=== PATIENT | male | born 1955 | race Caucasian/White ===

== ENCOUNTER 2016-08-15 06:17 | Inpatient (IN) ==
--- NOTE | 2016-08-14 20:29 | Discharge Summary ---
<Stefanie Avalos L - Last Filed: 08/14/16 20:25> Date of Encounter: 08/14/16 - Discharge Diagnosis (1) Pain from implanted hardware Priority: Primary Status: Acute Qualifiers: Encounter type: initial encounter Qualified Code(s): T85.848A - Pain due to other internal prosthetic devices, implants and grafts, initial encounter (2) HTN (hypertension) Priority: Secondary Status: Chronic Qualifiers: Hypertension type: essential hypertension Qualified Code(s): I10 - Essential (primary) hypertension (3) DMII (diabetes mellitus, type 2) Priority: Secondary Status: Chronic Qualifiers: Diabetes mellitus complication status: with unspecified complications 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 OARRS reviewed - Discharge Medications Home Medications: Dicyclomine [Bentyl] 10 mg PO QID 06/07/16 [History] Finasteride [Proscar] 5 mg PO DAILY 06/07/16 [History] Paroxetine HCl [Paroxetine Cr] 12.5 mg PO DAILY 06/07/16 [History] Phenytoin ER [Dilantin ER] 200 mg PO BID 06/07/16 [History] Pravastatin Sodium [Pravachol] 40 mg PO DAILY 06/07/16 [History] Terazosin [Hytrin] 10 mg PO HS 06/07/16 [History] OxyCODONE Immed Rel [Roxicodone 5 MG] 5 - 10 mg PO Q6HR PRN #40 tablet 08/14/16 [Rx] Acebutolol HCl 200 mg PO HS 08/15/16 [History] Amlodipine Besylate/Benazepril [Lotrel 10-40 mg Capsule] 1 each PO DAILY [History] Diazepam [Valium] 10 mg PO TID PRN 08/15/16 [History] Doxepin HCl 100 mg PO DAILY 08/15/16 [History] Hydrochlorothiazide 25 mg PO DAILY 08/15/16 [History] Allergies/Adverse Reactions: Allergies bupropion Allergy (Verified 08/15/16 06:58) Seizure ibuprofen [From Motrin] Adverse Reaction (Verified 08/15/16 06:58) Gastrointestinal Upset Primary care physician: Shun Quinones MD - Patient Status Disposition: Home, Self-Care Condition: Good - Discharge Instructions Follow Up With: Shun Quinones MD [Primary Care Provider] - - Hospital Course Hospital course: Mr. Mcgarry is a 61 year old male - Time Spent with Patient Total time spent providing and/or coordinating discharge services: <QuangAnshu Dumont - Last Filed: 08/16/16 06:36> Date of Encounter: 08/16/16 Time of Encounter: 06:36 - Discharge Diagnosis (1) Cervical spondylosis Priority: Secondary Status: Chronic Qualifiers: Spinal osteoarthritis complication: without myelopathy or radiculopathy Qualified Code(s): M47.812 - Spondylosis without myelopathy or radiculopathy, cervical region (2) Pain from implanted hardware Priority: Primary Status: Acute Qualifiers: Encounter type: initial encounter Qualified Code(s): T85.848A - Pain due to other internal prosthetic devices, implants and grafts, initial encounter (3) HTN (hypertension) Priority: Secondary Status: Chronic Qualifiers: Hypertension type: essential hypertension Qualified Code(s): I10 - Essential (primary) hypertension (4) DMII (diabetes mellitus, type 2) Priority: Secondary Status: Chronic Qualifiers: Diabetes mellitus complication status: with unspecified complications Diabetes mellitus detention insulin use: 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 Mcgarry is a 61 year old male The patient had an uneventful postoperative course. They received antibiotics and physical therapy and were discharged in stable condition. There will follow -up in the office in 2 weeks. - Time Spent with Patient Total time spent providing and/or coordinating discharge services:
[2016-08-15] MEDS ORDERED: Lidocaine -MPF 1% 2 ML VIAL ONE (06:51)
--- NOTE | 2016-08-15 06:58 | History & Physical Report ---
Date of Encounter: 08/15/16 Time of Encounter: 06:57 24 Hour HP Update - Instructions Instructions: If the History and Physical is less than 30 days old and was completed prior to A.M. admission and or procedure and has NOT been updated on calendar day of procedure please complete this update prior to performing procedure. - Update Patient reports changes in Medical Condition: No Changes in Medication: No Preop tests/diagnostics Reviewed: Yes Surgery Remains Indicated: Yes Consent for Planned Operative Procedure(s) Verified: Yes - Pre-Operative Checklist Preoperative Checklist Indicated: No Prophylactic Antibiotic Ordered: Yes Is VTE Prophylaxis Indicated?: Yes
[2016-08-15] MEDS ORDERED: Lidocaine -MPF 1% 2 ML VIAL ID ONE (07:04)
[2016-08-15] MEDS ORDERED: CeFAZolin Pre 2,000 MG/100 ML 2,000 MG/100 ML BAG IVPB ONE (07:04)
[2016-08-15] MEDS ORDERED: Tetracaine/PF 20 MG/2 ML AMPUL SPINA ONE (07:08)
[2016-08-15] MEDS ORDERED: Dexamethasone 4 MG/ML VIAL ONE ×2 (07:14→08:00)
[2016-08-15] MEDS ORDERED: *HR* Propofol 200 MG/20 ML VIAL IVP ONE (07:14)
[2016-08-15] MEDS ORDERED: *HR* Midazolam HCl 2 MG/2 ML VIAL ONE (07:14)
[2016-08-15] MEDS ORDERED: Lidocaine -MPF 2% 2 ML VIAL ONE (07:14)
[2016-08-15] MEDS ORDERED: Ondansetron 4 MG/2 ML VIAL ONE (07:14)
[2016-08-15] MEDS ORDERED: Ringers Solution, Lactated 1,000 ML IVC SCH ×2 (07:15→10:04)
[2016-08-15] MEDS ORDERED: Bupivacaine/Clonidine Syringe 1 EACH SYRINGE ONE (07:21)
--- NOTE | 2016-08-15 07:26 | Anesthesia Evaluation PreOp ---
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 History: Seizures (last seizure around one year) Other Medical History: Denies Any Significant HX Anesthesia History: No Prior Anesthetic Complications, Problems (nerve block didn't work last shoulder surgeries) Alcohol Use: none Drug use: none Medications and Allergies Dicyclomine [Bentyl] 10 mg PO QID 06/07/16 [History] Finasteride [Proscar] 5 mg PO DAILY 06/07/16 [History] Paroxetine HCl [Paroxetine Cr] 12.5 mg PO DAILY 06/07/16 [History] Phenytoin ER [Dilantin ER] 200 mg PO BID 06/07/16 [History] Pravastatin Sodium [Pravachol] 40 mg PO DAILY 06/07/16 [History] Terazosin [Hytrin] 10 mg PO HS 06/07/16 [History] OxyCODONE Immed Rel [Roxicodone 5 MG] 5 - 10 mg PO Q6HR PRN #40 tablet 08/14/16 [Rx] Acebutolol HCl 200 mg PO HS 08/15/16 [History] Amlodipine Besylate/Benazepril [Lotrel 10-40 mg Capsule] 1 each PO DAILY [History] Diazepam [Valium] 10 mg PO TID PRN 08/15/16 [History] Doxepin HCl 100 mg PO DAILY 08/15/16 [History] Hydrochlorothiazide 25 mg PO DAILY 08/15/16 [History] Allergies bupropion Allergy (Verified 08/15/16 06:58) Seizure ibuprofen [From Motrin] Adverse Reaction (Verified 08/15/16 06:58) Gastrointestinal Upset - Meds/Allergy Pre-op Review Medications Reviewed: Yes Allergies Reviewed: Yes Beta Blockers on Current Med List: Yes If Beta Blockers taken, Date/Time (Last Dose taken): acebutalol 08-14-16 at 19:00 Anesthesia Results - Labs Laboratory Tests 08/08/16 08/08/16 08/08/16 08:35 08:35 08:35 WBC 5.8 Hgb 15.0 Hct 43.0 Plt Count 244 PT 11.0 INR 1.0 APTT 27.8 Sodium 139 Potassium 3.5 Chloride 101 Carbon Dioxide 25 BUN 17 Creatinine 1.15 Est GFR ( Amer) > 60 Est GFR (Non-Af Amer) > 60 BUN/Creatinine Ratio 15 Est Mean Plasma Glucose Hemoglobin A1c 08/08/16 08:35 WBC Hgb Hct Plt Count PT INR APTT Sodium Potassium Chloride Carbon Dioxide BUN Creatinine Est GFR ( Amer) Est GFR (Non-Af Amer) BUN/Creatinine Ratio Est Mean Plasma Glucose 103 Hemoglobin A1c 5.2 - Imaging EKG: report reviewed, image reviewed (SR; incomplete RBBB) Anesthesia Exam Last Vital Signs Temp 98.2 F 08/15/16 06:42 Pulse 18 08/15/16 06:42 Resp 18 08/15/16 06:42 BP 111/49 08/15/16 06:42 Pulse Ox 93 08/15/16 06:42 Weight: 85 kg NPO (# of Hours): >> 8 hrs - HEENT Pupil (Motor): Pupils equal, EOMI Mallampati: III Teeth: Poor dentition Oral Opening: Less than or equal to 3 - PROJECT DEVELOPMENT COORDINATOR LOC: Oriented PROJECT DEVELOPMENT COORDINATOR Motor: Normal RUE, Normal LUE, Normal RLE, Normal LLE, Normal Face - Cardiac Rhythm: Regular Murmur: None - Pulmonary Breath Sounds: bilateral Clear Respiratory Effort: Symmetrical Anesthesia Assess/Plan ASA Score: 2 Modified [place] Scale for Level of Consciousness: Cooperative, oriented, and tranquil Anesthetic Plan: General, Regional Monitoring Plan: Standard Monitors Recovery Plan: PACU
[2016-08-15] MEDS ORDERED: EPHEDrine 50 MG/ML VIAL ONE (08:00)
[2016-08-15] MEDS ORDERED: *HR* Promethazine 25 MG/ML VIAL IVP PRN (08:06)
[2016-08-15] MEDS ORDERED: Ondansetron 4 MG/2 ML VIAL IVP ONE (08:06)
[2016-08-15] MEDS ORDERED: *HR* Labetalol 100 MG/20 ML MDV IVP PRN (08:06)
--- NOTE | 2016-08-15 08:11 | Anesthesia Procedures ---
Date of Encounter: 08/15/16 Time of Encounter: 07:36 Procedures: Anesthesia - Nerve Block Procedure Date: 08/15/16 Time: 07:36 Surgical Procedure: right revision total shoulder Correct side: Right Blood Thinner: No Monitor Applied: Pulse Oximetry Sedation: Versed (mg): 4 Indication: Post Op Analgesia Block Type: Supraclavicular, Other (T2 and SCP) Catheter placed: No Sterile Technique: Yes Ultrasound used: Yes Anatomy identified: Yes Visual spread of Local: Yes Neuro Stimulation: No Blood on Needle Aspiration: No Smooth Injection of Local: Yes Pain with Injection of Local: No Prep: Chlorhexadine Needle: 22 x 50 mm Stimuplex Local: 0.25% Bupivicaine w/Clonidine 20 mcg/cc (10ml, 5 for SCP and 5 for T2), Tetracaine (2ml 1%), Other (27ml 0.5% bup plain, 2mg decadron, 2ml tetracaine) Volume (cc): 40 Number of Attempts: 1 Complications: None/effective block Vitals: vss though out, block per request of surgeon
[2016-08-15] MEDS ORDERED: *HR* Phenylephrine 10 MG/ML VIAL ONE (08:12)
--- NOTE | 2016-08-15 08:50 | Orthopedic Operative Note ---
Date of procedure: 08/15/16 Pre-op diagnosis: Painful right total shoulder Post-op diagnosis: same Procedure: Procedure: Right Revision Total Shoulder replacement reverse Estimated blood loss: 100 cc Hardware: Arthrex: Large glenoid baseplate, 2 4.5 screws, one 6.5 screw 42+4 Glenosphere, 10 stem +6 Ronda Procedural Notes: Loose humeral component, loose glenoid component. Operative procedure: The patient was brought to the operating room and placed on the operating room table. The patient was placed in the modified beachchair position. All pressure points were padded appropriately. And the head was stabilized in the neutral position. The operative extremity was prepped and draped in the sterile surgical fashion. The patient received IV antibiotics prior to skin incision. A standard deltopectoral approach was made to the operative shoulder. Incision was made to the skin and subcutaneous tissue,hemo stasis was obtained with Bovie cautery. Using careful blunt dissection the cephalic vein was identified and mobilized medially. The deltopectoral interval was developed and the clavipectoral fascia was incised. An extensive debridement was performed, and the shoulder was dislocated. Using an osteotome to clear out the soft tissue, the humeral component was gently removed. It was grossly loose. Anterior and posterior Bankart retractors were used to expose the glenoid, the glenoid component was removed without incident. This was also loose. It was a keeled glenoid component. The glenoid guide was seated the centering hole was made the glenoid was reamed with the appropriate reamer. The large glenoid baseplate was seated and secured and locked in place with the locking screws. The baseplate was irrigated and dried 42+4 glenosphere was seated and secured. Attention was then turned to the humeral side. The humerus was reamed and broached up to its appropriate size in 20 degrees of retroversion. Trial reduction found the shoulder to be relocatable. Trial components were removed, real implants were seated. Trial reduction found the shoulder to be stable with the appropriate last 6 implants. The trial implants were removed the real 6implants were seated and secured in the shoulder was reduced. The patient had excellent motion and excellent stability no shuck. The deep tissue was irrigated with pulse irrigation deltopectoral interval was closed with #2 PDS suture. Superficially the subcutaneous tissue was closed with 0 PDS suture, the skin was closed with Dermabond. The patient placed sterile dressing, postoperative brace extubated and transferred to the recovery room in stable condition. Anesthesia: [place] Surgeon: Anshu [address] Maintenance Crew Worker: Stefanie Avalos Condition: stable Disposition: PACU
[2016-08-15] MEDS: *HR* HYDROmorphone (PF) 1 MG/ML SYRINGE IVP PRN ×6 (09:11→19:46)
[2016-08-15 09:24] LABS: Hematocrit 36.7 % (37.5-50.1)
[2016-08-15 09:25] LABS: Hemoglobin 12.6 g/dL (12.9-16.9)
--- NOTE | 2016-08-15 09:46 | Anesthesia Evaluation Post Op ---
Date of Encounter: 08/15/16 Time of Encounter: 09:45 - Vital Signs Vital Signs: Last Vital Signs Temp 97.8 F 08/15/16 09:34 Pulse 69 08/15/16 09:34 Resp 16 08/15/16 09:34 BP 104/69 08/15/16 09:34 Pulse Ox 92 08/15/16 09:34 - Lungs Lungs: Clear Ascult./Percussion - Airway Airway: Non-obstructed - Cardiovascular Regular Rate - Mental Status Mental Status: Alert & Oriented, Answers Appropriately - Pain Pain Scale: 2 - Nausea Vomiting Nausea Vomiting: Not Present - Hydration Hydration: Ice chips - Discharge PostOp Status: Transfer Patient to floor
[2016-08-15] MEDS ORDERED: Sennosides 8.6 MG TABLET PO PRN (10:04)
[2016-08-15] MEDS ORDERED: ceFAZolin 2,000 MG in D5% in Water 100 ML IVPB SCH (10:04)
[2016-08-15] MEDS ORDERED: Naloxone 0.4 MG/ML INJ IVP PRN (10:04)
[2016-08-15] MEDS ORDERED: *HR* OxyCODONE Immed Rel 5 MG TABLET PO PRN (10:04)
[2016-08-15] MEDS ORDERED: *HR* Dextrose 50 % in Water (Syg) 50 ML SYRINGE IVP PRN (10:04)
[2016-08-15] MEDS ORDERED: Ondansetron 4 MG/2 ML VIAL IVP PRN (10:04)
[2016-08-15] MEDS ORDERED: Temazepam 15 MG CAPSULE PO PRN (10:04)
[2016-08-15] MEDS ORDERED: D5% in Water 1,000 ML IVC PRN (10:04)
[2016-08-15] MEDS ORDERED: MOM Conc 10 ML UD.LIQ PO PRN (10:04)
[2016-08-15] MEDS ORDERED: Dextrose Gel 15 GM PO PRN ×2 (10:04)
[2016-08-15] MEDS ORDERED: Acetaminophen 325 MG TABLET PO PRN (10:04)
[2016-08-15] MEDS: diazePAM 10 MG TABLET PO PRN (10:42)
[2016-08-15] MEDS: hydroCHLOROthiazide 25 MG TABLET PO SCH (13:29)
[2016-08-15] MEDS: *HR* OxyCODONE Immed Rel 5 MG TABLET PO PRN ×2 (13:42→17:44)
[2016-08-15] MEDS: AMLODIPINE BESYLATE PO SCH (13:45)
[2016-08-15] MEDS: BENAZEPRIL PO SCH (13:45)
[2016-08-15] MEDS: Finasteride 5 MG TABLET PO SCH (17:40)
[2016-08-15] MEDS: Insulin LISPRO 300 UNITS/3 ML VIAL SQ SCH ×2 (17:40→17:58)
[2016-08-15] MEDS: *HR* Enoxaparin 30 MG/0.3 ML SYRINGE SQ SCH (17:40)
[2016-08-15] MEDS: ceFAZolin 2,000 MG in D5% in Water 100 ML IVPB SCH (17:41)
[2016-08-15] MEDS ORDERED: *HR* Enoxaparin 30 MG/0.3 ML SYRINGE SQ SCH (18:00)
[2016-08-15] MEDS ORDERED: Insulin LISPRO 300 UNITS/3 ML VIAL SQ SCH (21:00)
[2016-08-16] MEDS: *HR* HYDROmorphone (PF) 1 MG/ML SYRINGE IVP PRN (00:08)
[2016-08-16] MEDS: ceFAZolin 2,000 MG in D5% in Water 100 ML IVPB SCH (00:08)
[2016-08-16] MEDS: *HR* OxyCODONE Immed Rel 5 MG TABLET PO PRN ×2 (03:23→07:33)
[2016-08-16] MEDS: diazePAM 10 MG TABLET PO PRN (04:30)
[2016-08-16 05:09] LABS: Hematocrit 35.5 % (37.5-50.1)
[2016-08-16] MEDS: *HR* Enoxaparin 30 MG/0.3 ML SYRINGE SQ SCH (06:08)
--- NOTE | 2016-08-16 06:37 | Orthopedics Progress Note ---
Date of Encounter: 08/16/16 Time of Encounter: 06:37 - Assessment and Plan (1) Cervical spondylosis Current Visit: No Status: Chronic Qualifiers: Spinal osteoarthritis complication: without myelopathy or radiculopathy Qualified Code(s): M47.812 - Spondylosis without myelopathy or radiculopathy, cervical region (2) Pain from implanted hardware Current Visit: Yes Status: Acute Qualifiers: Encounter type: initial encounter Qualified Code(s): T85.848A - Pain due to other internal prosthetic devices, implants and grafts, initial encounter (3) HTN (hypertension) Current Visit: Yes Status: Chronic Qualifiers: Hypertension type: essential hypertension Qualified Code(s): I10 - Essential (primary) hypertension (4) DMII (diabetes mellitus, type 2) Current Visit: Yes Status: Chronic Qualifiers: Diabetes mellitus complication status: with unspecified complications 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 Afebrile vital signs stable. Operative extremity: Neurovascularly intact Dressing clean dry and intact Calves nontender Assessment and plan: Continue with postoperative care Hematocrit 35 discharged today Objective Vital signs: Vital Signs Temp Pulse Resp BP Pulse Ox 08/16/16 03:34 96 08/16/16 03:25 98.4 F 87 21 132/81 96 08/16/16 00:08 98.2 F 85 19 100/54 94 08/15/16 20:38 96 109/58 08/15/16 20:05 98.5 F 94 22 115/76 94 08/15/16 19:42 94 115/76 08/15/16 15:48 98.1 F 88 18 99/76 92 08/15/16 13:22 98.2 F 67 18 94/60 90 08/15/16 12:20 97.7 F 70 18 115/67 93 08/15/16 11:55 97.4 F L 71 18 103/63 94 08/15/16 10:15 92 08/15/16 10:03 97.7 F 66 18 106/44 92 08/15/16 09:44 97.8 F 70 16 109/68 92 08/15/16 09:34 97.8 F 69 16 104/69 92 08/15/16 09:24 70 16 100/46 93 08/15/16 09:14 71 16 103/63 94 08/15/16 09:04 97.8 F 68 16 95/47 96 08/15/16 07:42 66 17 94/76 94 08/15/16 07:38 63 16 103/71 93 08/15/16 07:33 64 16 119/107 93 08/15/16 06:42 98.2 F 18 18 111/49 93 Intake and Output 08/15/16 08/15/16 08/16/16 15:59 23:59 07:59 Intake Total 400 / 400 220 / 220 Output Total 900 / 900 475 / 475 800 / 800 Balance -500 / -500 -255 / -255 -800 / -800 Intake: IV Fluids 100 / 100 Ancef 2,000 MG In 100 / 100 Dextrose 5% 100 ML @ 200 mls/hr IVPB Q8H EMELINA Rx#: [id number] Oral 400 / 400 120 / 120 Output: Urine 800 / 800 475 / 475 800 / 800 Estimated Blood Loss 100 / 100 Other: Meal Lunch Dinner Percent of Meal Consumed 80% 75% # Voids 1 # Bowel Movement Diapers 1 Blood Glucose* 174 85 121 - Labs CBC & BMP: 08/16/16 04:32 Labs: Abnormal lab results Hgb 12.0 g/dL (12.9-16.9) L 08/16/16 04:32 Hct 35.5 % (37.5-50.1) L 08/16/16 04:32 - VTE Documentation of Mechanical Device: Venous foot pump, device Consult Discharge Plan - Plan Referrals: Shun Quinones MD [Primary Care Provider] -
[2016-08-16 07:08] VITALS: BP 107/53
[2016-08-16] MEDS: Finasteride 5 MG TABLET PO SCH (07:25)
[2016-08-16] MEDS: Insulin LISPRO 300 UNITS/3 ML VIAL SQ SCH (07:25)
[2016-08-16] MEDS: AMLODIPINE BESYLATE PO SCH (07:26)
[2016-08-16] MEDS: BENAZEPRIL PO SCH (07:26)
[2016-08-16] MEDS: hydroCHLOROthiazide 25 MG TABLET PO SCH (07:26)
== END 2016-08-16 10:44 | disposition home or self-care (01) | DRG 483 ==
LOC: SAMDAY 06:17 → 3NENU 10:04
PROVIDERS: ADMIT Orthopaedic Surgery; ATTEND Orthopaedic Surgery

== ENCOUNTER 2017-08-31 16:26 | Inpatient (IN) ==
[2017-08-31 16:50] LABS: Basophils % 0.3 %; Eosinophils # 0.1 K/mcL (0.0-0.6); Eosinophils % 0.7 %; Hematocrit 35.3 % (37.5-50.1); Hemoglobin 12.3 g/dL (12.9-16.9); Immature Granulocytes % 0.3 % (0-4); Lymphocytes # 1.3 K/mcL (0.6-4.6); Lymphocytes % 13.4 %; Mean Corpuscular HGB Conc 34.8 g/dL (31.6-35.5); Mean Corpuscular Volume 97.5 fL (83.0-100.0); Mean Platelet Volume 9.3 fL (9.4-12.4); Monocytes # 0.9 K/mcL (0.0-1.3); Monocytes % 9.3 %; Neutrophils # 7.6 K/mcL (1.6-8.9); Platelet Count 209 K/mcL (140-400); Red Blood Count 3.62 M/mcL (4.19-5.50); Red Cell Distribution Width 12.3 % (11.5-14.5)
--- NOTE | 2017-08-31 16:55 | Emergency Department Note ---
Disposition Clinical Impression: Hypoxia Hypotension Qualifiers: Hypotension type: unspecified hypotension type Qualified Code(s): I95.9 - Hypotension, unspecified Pneumonia Qualifiers: Pneumonia type: due to unspecified organism Laterality: unspecified laterality Lung location: unspecified part of lung Qualified Code(s): J18.9 - Pneumonia, unspecified organism Disposition: Admitted As Inpatient Condition: Fair Time of Disposition: 19:48 General Adult HPI - General Chief complaint: ED Shortness of Breath/Dyspnea Stated complaint: "low O2,hypotension sent by aniceto" Time Seen by Provider: 08/31/17 16:35 Source: patient Limitations: no limitations Nursing Notes Reviewed: Yes Vital Signs Reviewed: Yes - History of Present Illness HPI Narrative: Patient is a 62-year-old male that presents the emergency department for low oxygen saturation and hypotension. Patient was recommended to come to the emergency department by Dr. Antunez the spine surgeon. Patient reports that there home health nurse came to evaluate the patient and reported oxygen saturation in the 80s and that they were hypotensive. They then called Dr. Antunez's office who recommended that the patient come to the emergency department to be evaluated. The patient states that he has been coughing up greenish yellow mucus. The patient stated multiple times that he did not feel that he needed to come to the emergency department however it was recommended by Dr. Antunez and the home health nurse. Patient denies any chest pain or difficulty breathing at this time. Patient denies any fever, chills, nausea or any vomiting. Patient reports that he had recent discectomy approximately 2-[address] Antunez. Pain Scale: 9 - Related Data Home Medications Medication Instructions Recorded Confirmed Dicyclomine [Bentyl] 20 mg PO TID 06/07/16 08/31/17 Phenytoin ER [Dilantin ER] 200 mg PO BID 06/07/16 08/31/17 Terazosin [Hytrin] 10 mg PO HS 06/07/16 08/31/17 Acebutolol HCl 200 mg PO HS 08/15/16 08/31/17 Amlodipine Besylate/Benazepril 1 tab PO DAILY 08/15/16 08/31/17 [Lotrel 10-40 mg Capsule] Doxepin HCl 200 mg PO HS 08/15/16 08/31/17 diazePAM [Valium] 10 mg PO TID PRN 08/15/16 08/31/17 hydroCHLOROthiazide 25 mg PO DAILY 08/15/16 08/31/17 [Hydrochlorothiazide] Escitalopram [Lexapro] 20 mg PO DAILY 08/29/17 08/31/17 hydrOXYzine HCl [Hydroxyzine HCl] 25 - 50 mg PO HS PRN 08/29/17 08/31/17 Previous Rx's Medication Instructions Recorded OxyCODONE Immed Rel [Roxicodone 5 5 mg PO Q6H PRN 7 Days #28 tablet 08/30/17 MG] Allergies Allergy/AdvReac Type Severity Reaction Status Date / Time bupropion Allergy Seizure Verified 08/29/17 08:52 NSAIDS (Non-Steroidal Allergy Gastrointestinal Verified 08/29/17 08:52 Anti-Inflamma Upset ibuprofen [From Motrin] AdvReac Gastrointestinal Verified 08/29/17 08:52 Upset All systems ED: reviewed and negative except as stated. Constitutional: Denies: fever, chills Cardiovascular: Denies: chest pain Respiratory: Reports: cough, sputum production. Denies: dyspnea Gastrointestinal: Denies: abdominal pain, nausea, vomiting Genitourinary: Denies: urgency, dysuria Past Medical History - Past Medical History Medical history: Reports: arthritis, diabetes, hypertension, seizures Surgical history: Reports: orthopedic, other Psychiatric history: Reports: depression - Social History Smoking Status: Never smoker Smokeless Tobacco Status: No Alcohol use: Reports: none Drug use: Reports: none Physical Exam - General Limitations: no limitations General appearance: alert, in no apparent distress - Head Head exam: atraumatic, normocephalic - Eye Eye exam: Present: normal appearance, EOMI - Neck Neck exam: Present: normal inspection, full ROM, trachea midline - Respiratory Respiratory exam: Present: other (Patient has coarse crackly breath sounds bilaterally.) - Cardiovascular Cardiovascular exam: Present: regular rate, normal rhythm, normal heart sounds, +S1, +S2 - Abdominal Exam Abdominal exam: Present: soft, Non-Tender, normal bowel sounds - Neurological Exam Neurological exam: Present: alert, oriented X3 - Psychiatric Psychiatric exam: Present: normal affect, normal mood - Skin Skin exam: Present: warm, dry, intact Course - Reevaluation(s) Reevaluation #1: Patient had an elevated d-dimer of 1592 which may partially be secondary to the patient recently having cervical neck surgery with Dr. Antunez however due to the patient presenting with hypoxia and hypotension pulmonary embolus cannot be excluded so we will obtain a CTA of the chest to rule out possible pulmonary embolus. Time: 17:18 Reevaluation #2: Upon checking on the patient the family member had removed the patient's cervical collar and told the nurse and myself that he is allowed to have his cervical collar removed when he is in bed. The cervical collar was not removed by myself or medical staff here in the emergency department. The patient stated that he wanted the cervical collar placed back on and this will be done. The patient's blood pressure upon reevaluation was 100/57. Time: 19:50 Vital Signs Temperature 98.6 F 08/31/17 16:31 Pulse Rate 86 08/31/17 16:31 Respiratory Rate 26 08/31/17 16:31 Blood Pressure 101/65 08/31/17 16:31 O2 Sat by Pulse Oximetry 87 08/31/17 16:31 Temperature 98.6 F 08/31/17 16:31 Pulse Rate 89 08/31/17 19:48 Respiratory Rate 18 08/31/17 19:48 Blood Pressure 100/57 08/31/17 19:48 O2 Sat by Pulse Oximetry 91 08/31/17 19:48 Oxygen Delivery Oxygen Delivery Nasal Cannula Medical Decision Making - [facility] Narrative Medical decision making narrative: Due the patient presented with reported decreased oxygen saturations and concern for possible pneumonia versus other pulmonary pathology we will obtain a CBC, BMP, troponin chest x-ray and EKG. We will also obtain a d-dimer to evaluate for possible clot burden due to the patient having recent surgery. - Lab Data Lab results reviewed: Yes I reviewed the patient's lab results. Result diagrams: 08/31/17 16:35 08/31/17 16:35 Lab Results 08/31/17 08/31/17 08/31/17 Range/Units 16:35 16:35 16:35 WBC 10.0 (4.3-11.1) K/mcL RBC 3.62 L (4.19-5.50) M/mcL Hgb 12.3 L (12.9-16.9) g/dL Hct 35.3 L (37.5-50.1) % MCV 97.5 (83.0-100.0) fL MCH 34.0 H (28.0-33.3) pg MCHC 34.8 (31.6-35.5) g/dL RDW 12.3 (11.5-14.5) % Plt Count 209 (140-400) K/mcL MPV 9.3 L (9.4-12.4) fL Immature Gran % 0.3 (0-4) % Seg Neutrophils % 76.0 % Lymphocytes % 13.4 % Monocytes % 9.3 % Eosinophils % 0.7 % Basophils % 0.3 % Neutrophils # 7.6 (1.6-8.9) K/mcL Lymphocytes # 1.3 (0.6-4.6) K/mcL Monocytes # 0.9 (0.0-1.3) K/mcL Eosinophils # 0.1 (0.0-0.6) K/mcL Basophils # 0.0 (0.0-0.2) K/mcL D-Dimer 1592 H (0-500) ng/mLFEU Sodium 133 L (136-145) mEq/L Potassium 3.5 (3.5-5.1) mEq/L Chloride 94 L (98-107) mEq/L Carbon Dioxide 30 H (23-29) mEq/L BUN 32 H (8-23) mg/dL Creatinine 2.16 H (0.70-1.30) mg/dL Est GFR ( Amer) 38 L (> 60) Est GFR (Non-Af Amer) 31 L (> 60) BUN/Creatinine Ratio 15 (6-26) Glucose 121 H (70-105) mg/dL Calculated Osmolality 284 (280-300) Lactic Acid (0.5-2.2) mmol/L Calcium 8.6 (8.6-10.3) mg/dL Troponin I < 0.03 (< 0.04) ng/mL B-Natriuretic Peptide (Less than 100) pg/mL 08/31/17 08/31/17 Range/Units 16:35 16:35 WBC (4.3-11.1) K/mcL RBC (4.19-5.50) M/mcL Hgb (12.9-16.9) g/dL Hct (37.5-50.1) % MCV (83.0-100.0) fL MCH (28.0-33.3) pg MCHC (31.6-35.5) g/dL RDW (11.5-14.5) % Plt Count (140-400) K/mcL MPV (9.4-12.4) fL Immature Gran % (0-4) % Seg Neutrophils % % Lymphocytes % % Monocytes % % Eosinophils % % Basophils % % Neutrophils # (1.6-8.9) K/mcL Lymphocytes # (0.6-4.6) K/mcL Monocytes # (0.0-1.3) K/mcL Eosinophils # (0.0-0.6) K/mcL Basophils # (0.0-0.2) K/mcL D-Dimer (0-500) ng/mLFEU Sodium (136-145) mEq/L Potassium (3.5-5.1) mEq/L Chloride (98-107) mEq/L Carbon Dioxide (23-29) mEq/L BUN (8-23) mg/dL Creatinine (0.70-1.30) mg/dL Est GFR ( Amer) (> 60) Est GFR (Non-Af Amer) (> 60) BUN/Creatinine Ratio (6-26) Glucose (70-105) mg/dL Calculated Osmolality (280-300) Lactic Acid 1.4 (0.5-2.2) mmol/L Calcium (8.6-10.3) mg/dL Troponin I (< 0.04) ng/mL B-Natriuretic Peptide 170 H (Less than 100) pg/mL - Radiology Data Radiology results reviewed: Yes I reviewed the patient's radiology results. Chest X-Ray 08/31/17 16:38 IMPRESSION: Shallow inspiration with mild bibasilar atelectasis. D/ / Brennan Ferrera MD / Brennan Ferrera MD Interpreting Provider: Brennan Ferrera MD Chest CTA 08/31/17 17:19 IMPRESSION: No evidence for pulmonary embolism. Ill-defined airspace opacities primarily within the lower lobes bilaterally. Subtle ground-glass opacities within the right upper lobe and lingula. Findings are most compatible with multifocal infectious or inflammatory process. Follow-up to resolution recommended. D/ / Jori Martinez MD / Jori Martinez MD Interpreting Provider: Jori Martinez MD - EKG Data EKG #1 EKG attestation: Yes I reviewed and interpreted this EKG. EKG results narrative: EKG showed a sinus rhythm at rate of 81 bpm, ID interval of 160, QRS duration of 99, QTC of 409 with a normal axis. There is evidence of an incomplete right bundle-branch block. This is compared to previous EKG on 08/16/17 which showed a sinus rhythm at a rate of 60 bpm which also showed evidence of an incomplete right bundle-branch block.
[2017-08-31 17:15] LABS: Troponin I < 0.03 ng/mL (< 0.04)
[2017-08-31] MEDS ORDERED: Isovue-370 500 ML INFUS..BTL IV ONE (17:19)
--- NOTE | 2017-08-31 17:23 | Emergency Department Note ---
Disposition Clinical Impression: Hypotension Qualifiers: Hypotension type: other hypotension type Qualified Code(s): I95.89 - Other hypotension Disposition: Admitted As Inpatient Forms: ED Satisfaction Letter General Adult HPI - General Chief complaint: ED Shortness of Breath/Dyspnea Stated complaint: "low O2,hypotension sent by aniceto" Time Seen by Provider: 08/31/17 16:35 Source: patient Limitations: no limitations - History of Present Illness Pain Scale: 9 - Related Data Home Medications Medication Instructions Recorded Confirmed Dicyclomine [Bentyl] 20 mg PO TID 06/07/16 08/29/17 Phenytoin ER [Dilantin ER] 200 mg PO BID 06/07/16 08/29/17 Terazosin [Hytrin] 10 mg PO HS 06/07/16 08/29/17 Acebutolol HCl 200 mg PO HS 08/15/16 08/29/17 Amlodipine Besylate/Benazepril 1 tab PO DAILY 08/15/16 08/29/17 [Lotrel 10-40 mg Capsule] Doxepin HCl 200 mg PO DAILY 08/15/16 08/29/17 diazePAM [Valium] 10 mg PO TID PRN 08/15/16 08/29/17 hydroCHLOROthiazide 25 mg PO DAILY 08/15/16 08/29/17 [Hydrochlorothiazide] Cyclobenzaprine [Flexeril] 5 - 10 mg PO Q8H PRN 08/29/17 08/29/17 Escitalopram [Lexapro] 20 mg PO DAILY 08/29/17 08/29/17 hydrOXYzine HCl [Hydroxyzine HCl] 25 - 50 mg PO HS PRN 08/29/17 08/29/17 Previous Rx's Medication Instructions Recorded OxyCODONE Immed Rel [Roxicodone 5 5 mg PO Q6H PRN 7 Days #28 tablet 08/30/17 MG] Allergies Allergy/AdvReac Type Severity Reaction Status Date / Time bupropion Allergy Seizure Verified 08/29/17 08:52 NSAIDS (Non-Steroidal Allergy Gastrointestinal Verified 08/29/17 08:52 Anti-Inflamma Upset ibuprofen [From Motrin] AdvReac Gastrointestinal Verified 08/29/17 08:52 Upset Constitutional: Denies: fever, chills Cardiovascular: Denies: chest pain Respiratory: Reports: cough, sputum production. Denies: dyspnea Gastrointestinal: Denies: abdominal pain, nausea, vomiting Genitourinary: Denies: urgency, dysuria Past Medical History - Past Medical History Medical history: Reports: arthritis, diabetes, hypertension, seizures Surgical history: Reports: orthopedic, other Psychiatric history: Reports: depression - Social History Smoking Status: Never smoker Smokeless Tobacco Status: No Alcohol use: Reports: none Drug use: Reports: none Physical Exam - General Limitations: no limitations General appearance: alert, in no apparent distress Course - Reevaluation(s) Reevaluation #1: ATTESTATION NOTE I examined this patient and my medical decision-making was reviewed with the WIRE HANGER/PA/Advanced Practice Nurse/Resident Physician. I agree with the documented findings, disposition and treatment plan as described except to the extent set forth below. ED attending note: Patient seen with emergency medicine resident Dr. Connor Perkins. We independently evaluated the patient. We independently had face-to -face contact with the patient. Please see a copy of his note for details of the history and physical, evaluation, management and disposition of this emergency Department patient. Briefly: 62-year-old male had a history of recent cervical discectomy done by Dr. Antunez about 3-4 days ago at [facility] presents from the clinic with lightheadedness and hypotension and hypoxia. Patient looks slightly pale and tired but is mentating appropriately. He has poor respiratory effort but clear breath sounds otherwise he is not tachycardic or altered. Patient's CBC is within normal limits his d-dimer is 1592. Certainly part of that exhalation could be postoperative however due to the patient's symptomatic presentation PE must be excluded. Patient will get IV fluids chest CTA lactic acid patient will be admitted. Providing 45 minutes critical care service this patient. Admission disposition pending Time: 17:20 Vital Signs Temperature 98.6 F 08/31/17 16:31 Pulse Rate 86 08/31/17 16:31 Respiratory Rate 26 08/31/17 16:31 Blood Pressure 101/65 08/31/17 16:31 O2 Sat by Pulse Oximetry 87 08/31/17 16:31 Temperature 98.6 F 08/31/17 16:31 Pulse Rate 86 08/31/17 16:31 Respiratory Rate 26 08/31/17 16:31 Blood Pressure 101/65 08/31/17 16:31 O2 Sat by Pulse Oximetry 90 08/31/17 16:47 Oxygen Delivery Oxygen Delivery Nasal Cannula Medical Decision Making - Lab Data Result diagrams: 08/31/17 16:35 Lab Results 08/31/17 08/31/17 08/31/17 Range/Units 16:35 16:35 16:35 WBC 10.0 (4.3-11.1) K/mcL RBC 3.62 L (4.19-5.50) M/mcL Hgb 12.3 L (12.9-16.9) g/dL Hct 35.3 L (37.5-50.1) % MCV 97.5 (83.0-100.0) fL MCH 34.0 H (28.0-33.3) pg MCHC 34.8 (31.6-35.5) g/dL RDW 12.3 (11.5-14.5) % Plt Count 209 (140-400) K/mcL MPV 9.3 L (9.4-12.4) fL Immature Gran % 0.3 (0-4) % Seg Neutrophils % 76.0 % Lymphocytes % 13.4 % Monocytes % 9.3 % Eosinophils % 0.7 % Basophils % 0.3 % Neutrophils # 7.6 (1.6-8.9) K/mcL Lymphocytes # 1.3 (0.6-4.6) K/mcL Monocytes # 0.9 (0.0-1.3) K/mcL Eosinophils # 0.1 (0.0-0.6) K/mcL Basophils # 0.0 (0.0-0.2) K/mcL D-Dimer 1592 H (0-500) ng/mLFEU Lactic Acid (0.5-2.2) mmol/L Troponin I < 0.03 (< 0.04) ng/mL 08/31/17 Range/Units 16:35 WBC (4.3-11.1) K/mcL RBC (4.19-5.50) M/mcL Hgb (12.9-16.9) g/dL Hct (37.5-50.1) % MCV (83.0-100.0) fL MCH (28.0-33.3) pg MCHC (31.6-35.5) g/dL RDW (11.5-14.5) % Plt Count (140-400) K/mcL MPV (9.4-12.4) fL Immature Gran % (0-4) % Seg Neutrophils % % Lymphocytes % % Monocytes % % Eosinophils % % Basophils % % Neutrophils # (1.6-8.9) K/mcL Lymphocytes # (0.6-4.6) K/mcL Monocytes # (0.0-1.3) K/mcL Eosinophils # (0.0-0.6) K/mcL Basophils # (0.0-0.2) K/mcL D-Dimer (0-500) ng/mLFEU Lactic Acid 1.4 (0.5-2.2) mmol/L Troponin I (< 0.04) ng/mL
[2017-08-31 17:30] LABS: BUN/Creatinine Ratio 15 (6-26); Blood Urea Nitrogen 32 mg/dL (8-23); Calcium 8.6 mg/dL (8.6-10.3); Carbon Dioxide 30 mEq/L (23-29); Chloride 94 mEq/L (98-107); Glucose 121 mg/dL (70-105); Osmolality,Calculated 284 (280-300); Potassium 3.5 mEq/L (3.5-5.1); Sodium 133 mEq/L (136-145); eGFR For African Americans 38 (> 60); eGFR For Non-African Americans 31 (> 60)
[2017-08-31] MEDS ORDERED: 0.9 % Sodium Chloride 1,000 ML IVC ONE ×2 (17:30→18:53)
[2017-08-31] MEDS ORDERED: Levofloxacin 750 MG/150 ML 750 MG/150 ML BAG IVPB ONE (18:25)
[2017-08-31] MEDS ORDERED: Piperacillin/Tazobactam 3.375 GM in 0.9 % Sodium Chloride Mini Bag 100 ML IVPB ONE (18:25)
[2017-08-31] MEDS ORDERED: Naloxone 0.4 MG/ML INJ IVP PRN (20:22)
[2017-08-31] MEDS ORDERED: Acetaminophen 325 MG TABLET PO PRN (20:22)
[2017-08-31] MEDS ORDERED: diazePAM 10 MG TABLET PO PRN (20:22)
--- NOTE | 2017-08-31 20:27 | Internal Med History&Physical ---
Date of Encounter: 08/31/17 Time of Encounter: 20:25 Internal Medicine - H&P: HPI Chief complaint: hypoxia Admitted From: Emergency Dept Plans for Post Hospital Care: Home History of present illness: Mr. Mcgarry is a 62 year old male with history of htn, seizure who recently underwent a cervical spine surgery by Dr. Antunez. Was being seen by home health nurse and noted to be hypoxic in the 80s. Dr. Antunez was contacted and recommended going to the ED. In the ED was found to be hypotensive and hypoxic and work up showed pneumonia. Put on supplemental O2 and given broad spectrum abx and IVF. The patient states that he has been coughing up greenish yellow mucus. Patient denies any fever, chills, nausea or any vomiting. Denies headache, blurry vision, chest pain, abdominal pain, diarrhea, constipation, urinary symptoms, or neurologcial symptoms. Past Med Surg Social Fam HX - Past Medical History Medical history: arthritis, diabetes, hypertension, seizures Psychiatric history: depression - Past Surgical History Surgical History: orthopedic, other - Social History Smoking Status: Never smoker Smokeless Tobacco Status: No Alcohol use: none Drug use: none - Family History Father Hx Family Cardiac Disorders: Yes (Hypertension) Hx Family Endocrine Disorder: Yes (Diabetes) Mother Living Status: Age at : 86 Cause of : old age Internal Medicine - H&P: Meds Dicyclomine [Bentyl] 20 mg PO TID 06/07/16 [History] Phenytoin ER [Dilantin ER] 200 mg PO BID 06/07/16 [History] Terazosin [Hytrin] 10 mg PO HS 06/07/16 [History] Acebutolol HCl 200 mg PO HS 08/15/16 [History] Amlodipine Besylate/Benazepril [Lotrel 10-40 mg Capsule] 1 tab PO DAILY [History] Doxepin HCl 200 mg PO HS 08/15/16 [History] diazePAM [Valium] 10 mg PO TID PRN 08/15/16 [History] hydroCHLOROthiazide [Hydrochlorothiazide] 25 mg PO DAILY 08/15/16 [History] Escitalopram [Lexapro] 20 mg PO DAILY 08/29/17 [History] hydrOXYzine HCl [Hydroxyzine HCl] 25 - 50 mg PO HS PRN 08/29/17 [History] OxyCODONE Immed Rel [Roxicodone 5 MG] 5 mg PO Q6H PRN 7 Days #28 tablet [Rx] 3 Allergy/AdvReac Type Severity Reaction Status Date / Time bupropion Allergy Seizure Verified 08/29/17 08:52 NSAIDS (Non-Steroidal Allergy Gastrointestinal Verified 08/29/17 08:52 Anti-Inflamma Upset ibuprofen [From Motrin] AdvReac Gastrointestinal Verified 08/29/17 08:52 Upset All Systems PM: A 10-system review of systems was performed and is negative for pertinent findings except as documented above in the HPI. Review of systems: All systems reviewed are negative except as mentioned above - Constitutional Vitals: Temp Pulse Resp BP Pulse Ox 98.6 F 89 18 100/57 91 08/31/17 16:31 08/31/17 19:48 08/31/17 19:48 08/31/17 19:48 08/31/17 19:48 Exam: GEN: NAD HEENT: AT, NC, No cyanosis, oral mucosa is moist, No JVD, neck collar in place Lymphatics: No lymphadenoapthy Eyes: Extrocular muscles intact, anicteric CVS:RRR. S1, S2, No m/r/g RESP: Diminished with coarse posteriorly bilaterally ABD: Soft, NT, ND, +BS EXT: No edema, No rashes, 2+ DP NEURO: Nonfocal, CN II-XII intact, No focal motor or sensory deficits Psych: Cooperative, Not anxious or depressed Internal Med - H&P Results - Labs CBC & Chem 7: 08/31/17 16:35 08/31/17 16:35 - Assessment and plan (1) Hypoxia Current Visit: Yes Status: Acute Assessment and plan: Secondary to pneumonia. We will treat as below. (2) Pneumonia Current Visit: Yes Status: Acute Assessment and plan: Likely aspiration vs. healthcare associated. failed swallow eval in ed. c/s speech and switch meds to IV if possible. We will treat with vancomycin and Zosyn. IV fluids.. Follow-up on urine strep and Legionella. Follow-up blood cultures. Qualifiers: Pneumonia type: due to unspecified organism Laterality: unspecified laterality Lung location: unspecified part of lung Qualified Code(s): J18.9 - Pneumonia, unspecified organism (3) KRISTA (acute kidney injury) Current Visit: Yes Status: Acute Assessment and plan: Likely secondary to dehydration. We will give IV fluids and check labs in the morning. Avoid nephrotoxins. (4) Elevated d-dimer Current Visit: Yes Status: Acute Assessment and plan: Negative for PE. No lower extremity swelling. Likely from pneumonia. (5) HTN (hypertension) Current Visit: No Status: Chronic Assessment and plan: Patient is hypotensive. We will hold antihypertensives. Qualifiers: Hypertension type: essential hypertension Qualified Code(s): I10 - Essential (primary) hypertension (6) History of seizure Current Visit: No Status: Chronic Assessment and plan: Continue home antiepileptics. (7) Status post cervical spinal fusion Current Visit: No Status: Acute Assessment and plan: Continue pain control. Patient is status post anterior cervical decompression and fusion of C4-C7 (8) DVT prophylaxis Current Visit: Yes Status: Acute Assessment and plan: Heparin subcutaneous - Time Spent With Patient Total time spent is greater than 50% in coordination of care (as documented) at patient's floor/unit and/or counseling patient:
[2017-08-31] MEDS: Ipratropium/Albuterol Neb 3 ML IH SCH (21:59)
[2017-08-31] MEDS ORDERED: *HR* LORazepam 2 MG/ML VIAL IVP ONE (23:00)
[2017-08-31] MEDS: *HR* Heparin 5,000 UNIT/ML VIAL SQ SCH (23:29)
[2017-09-01] MEDS: 0.9 % Sodium Chloride 1,000 ML IVC SCH ×2 (02:58→16:49)
[2017-09-01] MEDS: Piperacillin/Tazobactam 3.375 GM in 0.9 % Sodium Chloride Mini Bag 100 ML IVPB SCH ×3 (02:59→20:13)
[2017-09-01] MEDS: Ipratropium/Albuterol Neb 3 ML IH SCH ×4 (03:40→21:55)
[2017-09-01 05:22] LABS: Basophils % 0.3 %; Eosinophils % 0.3 %; Hematocrit 31.1 % (37.5-50.1); Immature Granulocytes % 0.3 % (0-4); Lymphocytes % 14.2 %; Mean Corpuscular HGB Conc 34.4 g/dL (31.6-35.5); Mean Corpuscular Hemoglobin 33.3 pg (28.0-33.3); Mean Corpuscular Volume 96.9 fL (83.0-100.0); Mean Platelet Volume 9.8 fL (9.4-12.4); Monocytes # 0.8 K/mcL (0.0-1.3); Monocytes % 10.9 %; Neutrophils # 5.4 K/mcL (1.6-8.9); Platelet Count 193 K/mcL (140-400); Red Blood Count 3.21 M/mcL (4.19-5.50); Red Cell Distribution Width 12.3 % (11.5-14.5)
[2017-09-01 05:24] LABS: Hemoglobin 10.7 g/dL (12.9-16.9)
[2017-09-01 05:32] LABS: BUN/Creatinine Ratio 15 (6-26); Blood Urea Nitrogen 20 mg/dL (8-23); Calcium 8.1 mg/dL (8.6-10.3); Carbon Dioxide 25 mEq/L (23-29); Chloride 104 mEq/L (98-107); Glucose 104 mg/dL (70-105); Magnesium 2.1 mg/dL (1.6-2.6); Osmolality,Calculated 289 (280-300); Potassium 3.8 mEq/L (3.5-5.1); Sodium 138 mEq/L (136-145); eGFR For African Americans > 60 (> 60); eGFR For Non-African Americans 54 (> 60)
[2017-09-01] MEDS: *HR* Heparin 5,000 UNIT/ML VIAL SQ SCH ×3 (05:33→22:24)
--- NOTE | 2017-09-01 08:32 | Internal Med Progress Note ---
<Jasen Costello - Last Filed: 09/01/17 14:59> Date of Encounter: 09/01/17 Time of Encounter: 09:00 - Assessment and plan (1) Pneumonia Current Visit: Yes Status: Acute Assessment and plan: Likely aspiration vs. healthcare associated. Continue with vancomycin and Zosyn. IV fluids. Speech eval recommends pureed textures only, no liquids. Barrium swallow demonstrates no evidence of aspiration. Aspiration with thin barium. Possible aspiration with nectar and honey think barium Legionella negative. Sputum culture with many Gram + cocci and few gram negative rods. Possible contamination. Repeat sputum culture. Continue with close monitoring of intake. Qualifiers: Pneumonia type: due to unspecified organism Laterality: unspecified laterality Lung location: unspecified part of lung Qualified Code(s): J18.9 - Pneumonia, unspecified organism (2) HTN (hypertension) Current Visit: No Status: Chronic Assessment and plan: Patient is hypotensive. We will hold antihypertensives. Qualifiers: Hypertension type: essential hypertension Qualified Code(s): I10 - Essential (primary) hypertension (3) History of seizure Current Visit: No Status: Chronic Assessment and plan: Continue home antiepileptics. (4) Status post cervical spinal fusion Current Visit: No Status: Acute Assessment and plan: Continue pain control. Patient is status post anterior cervical decompression and fusion of C4-C7 (5) Hypoxia Current Visit: Yes Status: Acute Assessment and plan: Secondary to pneumonia. Treat per pneumonia. (6) KRISTA (acute kidney injury) Current Visit: Yes Status: Acute Assessment and plan: Likely secondary to dehydration. We will give IV fluids and check labs in the morning. Avoid nephrotoxins. (7) Elevated d-dimer Current Visit: Yes Status: Acute Assessment and plan: CTA negative for PE. No lower extremity swelling. Likely from pneumonia. (8) DVT prophylaxis Current Visit: Yes Status: Acute Assessment and plan: Heparin subcutaneous - Time Spent With Patient Total time spent is greater than 50% in coordination of care (as documented) at patient's floor/unit and/or counseling patient: Greater than 35 minutes - Subjective Interval history: Patient is on neck brace due to recent cervical spine surgery by Dr. Antunez. He is here for dypsnea and hypoxia. Today, he reports feeling better. Tolerating medications and antibiotics. He is hungry and wants more solid food. Voiding without difficulty. Denies chest pain, cough, abdominal pain. Improvement of short of breath. Overall, improved. - Constitutional Vitals: Temp Pulse Resp BP Pulse Ox 98.6 F 87 16 99/64 93 09/01/17 07:54 09/01/17 07:54 09/01/17 07:54 09/01/17 07:54 09/01/17 07:54 General appearance: Present: A&O X 3 - Head Head exam: Present: atraumatic, normocephalic - Eye Eye exam: Present: EOMI, conjuntiva pink, sclera anicteric - Neck Neck exam general surgery: Present: supple, trachea midline. Absent: lymphadenopathy - Respiratory Respiratory exam: Present: rales. Absent: accessory muscle use, rhonchi, wheezes - Cardiovascular Cardiovascular exam: Present: RRR, +S1, +S2. Absent: diastolic murmur, gallop, rubs, systolic murmur - GI/Abdominal GI/Abdominal exam: Present: normal bowel sounds, soft, no peritoneal signs. Absent: distended, tenderness - Extremities Exam Extremities exam: Present: warm, radial pulses palpable and symmetrical. Absent : calf tenderness, cyanotic, pedal edema - Neurological Exam Neurological exam: Present: CN II-XII intact, oriented X3, no focal deficits. Absent: pronater drift, facial droop, speech deficit - Skin Skin exam: Present: dry, intact Internal Medicine: Result - Labs CBC & Chem 7: 09/01/17 04:15 09/01/17 04:15 Labs: Short CBC 09/01/17 Range/Units 04:15 WBC 7.2 (4.3-11.1) K/mcL Hgb 10.7 L D (12.9-16.9) g/dL Hct 31.1 L (37.5-50.1) % Plt Count 193 (140-400) K/mcL Neutrophils # 5.4 (1.6-8.9) K/mcL BMP 09/01/17 04:15 Sodium 138 Potassium 3.8 Chloride 104 Carbon Dioxide 25 BUN 20 Creatinine 1.35 H Glucose 104 Calcium 8.1 L - ABG Interpretation ABG results: PT/INR, D-dimer D-Dimer 1592 ng/mLFEU (0-500) H 08/31/17 16:35 Consult Discharge Plan - Plan Referrals: Dieter Leonardo DO [Primary Care Provider] - <Rigoberto Davis - Last Filed: 09/01/17 17:49> Date of Encounter: 09/01/17 - Assessment and plan (1) HTN (hypertension) Current Visit: No Status: Chronic Qualifiers: Hypertension type: essential hypertension Qualified Code(s): I10 - Essential (primary) hypertension (2) History of seizure Current Visit: No Status: Chronic (3) Status post cervical spinal fusion Current Visit: No Status: Acute (4) Hypoxia Current Visit: Yes Status: Acute (5) Pneumonia Current Visit: Yes Status: Acute Qualifiers: Pneumonia type: due to unspecified organism Laterality: unspecified laterality Lung location: unspecified part of lung Qualified Code(s): J18.9 - Pneumonia, unspecified organism (6) KRISTA (acute kidney injury) Current Visit: Yes Status: Acute (7) Elevated d-dimer Current Visit: Yes Status: Acute (8) DVT prophylaxis Current Visit: Yes Status: Acute - Time Spent With Patient Total time spent is greater than 50% in coordination of care (as documented) at patient's floor/unit and/or counseling patient: - Constitutional Vitals: Temp Pulse Resp BP Pulse Ox 99.4 F 81 17 110/80 95 09/01/17 16:20 09/01/17 16:20 09/01/17 16:20 09/01/17 16:20 09/01/17 16:20 Internal Medicine: Result - Labs CBC & Chem 7: 09/01/17 04:15 09/01/17 04:15 Labs: Short CBC 09/01/17 Range/Units 04:15 WBC 7.2 (4.3-11.1) K/mcL Hgb 10.7 L D (12.9-16.9) g/dL Hct 31.1 L (37.5-50.1) % Plt Count 193 (140-400) K/mcL Neutrophils # 5.4 (1.6-8.9) K/mcL BMP 09/01/17 04:15 Sodium 138 Potassium 3.8 Chloride 104 Carbon Dioxide 25 BUN 20 Creatinine 1.35 H Glucose 104 Calcium 8.1 L - ABG Interpretation ABG results: PT/INR, D-dimer D-Dimer 1592 ng/mLFEU (0-500) H 08/31/17 16:35 - Impressions Impressions Videofluoroscopic Swallow 09/01/17 08:53 IMPRESSION: 1. Residue that vallecular with applesauce consistency barium. No evidence of aspiration. 2. Laryngeal penetration and aspiration with the thin barium. 3. Laryngeal penetration, with possible aspiration with nectar and honey thick barium. 4. Prevertebral edema in setting of recent cervical spine surgery. 5. Please see separate speech pathology report for full discussion of findings and recommendations. D/ / Gera Begum MD / Gera Begum MD Interpreting Provider: Gera Begum MD - Attending Attestation I examined this patient 09/01, and my medical decision-making was reviewed with the Resident Physician. I agree with the documented findings, disposition and treatment plan as described except to the extent set forth below. 62-year-old male with medical history of seizures, hypertension, some possible mental retardation, was admitted for acute respiratory failure with hypoxia secondary to multifocal pneumonia, suspect aspiration pneumonia. The patient is seen and evaluated at the bedside with family. He denies new complaints. Is requesting to have something to eat. Of note, he failed the bedside swallow evaluation in the ER. Physical examination: He is alert and oriented 3, he has a left lateral neck region redness and swelling, close to the incision site from his previous cervical fusion, he has right middle and lower lobe bronchi, heart sounds S1-S2 , abdomen is soft and nontender, no pedal edema. Labs and imaging reviewed: Anemia possibly dilutional from IV fluids, acute kidney injury is improving with fluid hydration. CT angiogram negative for pulmonary embolism. Barium swallow noted with multiple micro-aspiration Assessment: Acute respiratory failure with hypoxia secondary to an suspected aspiration pneumonia, possible healthcare associated pneumonia as patient was recently discharged from this facility and had surgery, acute kidney injury. Continue Fluid hydration. Speech and swallow evaluation. Continue current medications, continue to hold home diuretics and AMANDA inhibitor. Obtain CT scan of the left lateral neck cellulitis. Continue other management. Rest of details as in the resident physician's documentation
[2017-09-01] MEDS ORDERED: Acetaminophen IV 500 MG/50 ML INFUS..BTL IVPB ONE (16:45)
[2017-09-01] MEDS: OXYCODONE Oral CONC 10 MG/0.5 ML ORAL.SYG SL PRN (16:50)
[2017-09-01] MEDS: diazePAM 10 MG/2 ML SYRINGE IVP PRN (21:33)
[2017-09-01] MEDS ORDERED: Furosemide 20 MG/2 ML VIAL IVP ONE (22:02)
[2017-09-02] MEDS: Ipratropium/Albuterol Neb 3 ML IH SCH ×4 (03:40→21:39)
[2017-09-02] MEDS: Piperacillin/Tazobactam 3.375 GM in 0.9 % Sodium Chloride Mini Bag 100 ML IVPB SCH ×3 (04:11→18:02)
[2017-09-02 05:01] LABS: Basophils % 0.1 %; Eosinophils # 0.1 K/mcL (0.0-0.6); Eosinophils % 1.2 %; Hematocrit 33.3 % (37.5-50.1); Hemoglobin 11.3 g/dL (12.9-16.9); Immature Granulocytes % 0.4 % (0-4); Lymphocytes # 1.5 K/mcL (0.6-4.6); Lymphocytes % 19.5 %; Mean Corpuscular HGB Conc 33.9 g/dL (31.6-35.5); Mean Corpuscular Hemoglobin 33.3 pg (28.0-33.3); Mean Corpuscular Volume 98.2 fL (83.0-100.0); Mean Platelet Volume 9.4 fL (9.4-12.4); Monocytes # 0.8 K/mcL (0.0-1.3); Monocytes % 10.4 %; Neutrophils # 5.1 K/mcL (1.6-8.9); Platelet Count 229 K/mcL (140-400); Red Blood Count 3.39 M/mcL (4.19-5.50); Red Cell Distribution Width 12.6 % (11.5-14.5); Segmented Neutrophils % 68.4 %
[2017-09-02 05:24] LABS: BUN/Creatinine Ratio 10 (6-26); Blood Urea Nitrogen 9 mg/dL (8-23); Calcium 8.7 mg/dL (8.6-10.3); Carbon Dioxide 29 mEq/L (23-29); Chloride 102 mEq/L (98-107); Glucose 98 mg/dL (70-105); Osmolality,Calculated 291 (280-300); Potassium 3.3 mEq/L (3.5-5.1); Sodium 141 mEq/L (136-145); eGFR For African Americans > 60 (> 60); eGFR For Non-African Americans > 60 (> 60)
--- NOTE | 2017-09-02 06:19 | Electrocardiograph Report ---
[address] [place], [place] [address] Test Date: 2017-08-31 Pat Name: Adrien Mcgarry Department: 102 Room: 2NE17 Gender: M [employer]: Am : 1955 Requested By: [id number] Order Number: [id number] Reading MD: Franklyn Thomas Measurements Intervals [place] Rate: 81 P: 20 [place]: 160 QRS: 9 QRSD: 99 T: 50 QT: 371 QTc: 409 Interpretive Statements SINUS RHYTHM INCOMPLETE RIGHT BUNDLE BRANCH BLOCK Electronically Signed On 09-02-2017 6:17:36 EDT by Franklyn Thomas
[2017-09-02] MEDS: *HR* Heparin 5,000 UNIT/ML VIAL SQ SCH ×3 (06:54→20:22)
[2017-09-02] MEDS: OXYCODONE Oral CONC 10 MG/0.5 ML ORAL.SYG SL PRN ×2 (08:25→16:54)
[2017-09-02] MEDS: diazePAM 10 MG/2 ML SYRINGE IVP PRN ×2 (09:02→14:13)
--- NOTE | 2017-09-02 09:22 | Internal Med Progress Note ---
<Jasen Costello - Last Filed: 09/02/17 11:44> Date of Encounter: 09/02/17 Time of Encounter: 08:00 - Assessment and plan (1) Abscess or cellulitis of submandibular region Current Visit: Yes Status: Acute Assessment and plan: Patient has worsening left submandibular swelling. s/p cervical decompression on 08/29/17. CT neck w/o contrast demonstrates scattered opacities in the included lung. enlarged lymph node adjacent to left submandibular gland. soft tissue density in left parapharyngeal space, small phlegmon vs abscess. Spoke with Dr. Cardenas and Dr. Gallagher in regards to best treatment plan. We believe that this is likely post-procedural and less likely an abscess. Dr. Gallagher will see the patient tomorrow. Will follow-up on recommendations. ENT for possible I&D if needed. (2) Pneumonia Current Visit: Yes Status: Acute Assessment and plan: Likely aspiration vs. healthcare associated. Continue with vancomycin and Zosyn. IV fluids. Patient aspirated on pureed diet this AM. NPO now. Switch medications to IV. Psychiatric medications can be crushed. Sputum culture with many Gram + cocci and few gram negative rods. Possible contamination. Repeat sputum culture pending. Qualifiers: Pneumonia type: aspiration pneumonia Laterality: unspecified laterality Lung location: unspecified part of lung Qualified Code(s): J69.0 - Pneumonitis due to inhalation of food and vomit (3) HTN (hypertension) Current Visit: No Status: Chronic Assessment and plan: Stable. Unable to tolerate PO intake. Continue to hold antihypertensives. Qualifiers: Hypertension type: essential hypertension Qualified Code(s): I10 - Essential (primary) hypertension (4) History of seizure Current Visit: No Status: Chronic Assessment and plan: Continue home antiepileptics. (5) Status post cervical spinal fusion Current Visit: No Status: Acute Assessment and plan: Continue pain control. Patient is status post anterior cervical decompression and fusion of C4-C7 (6) Hypoxia Current Visit: Yes Status: Acute Assessment and plan: Secondary to pneumonia. Treat per pneumonia. (7) KRISTA (acute kidney injury) Current Visit: Yes Status: Acute Assessment and plan: Improved. Likely secondary to dehydration. We will give IV fluids and check labs in the morning. Avoid nephrotoxins. (8) DVT prophylaxis Current Visit: Yes Status: Acute Assessment and plan: Heparin subcutaneous (9) Dysphagia Current Visit: Yes Status: Acute Assessment and plan: Likely secondary to left submandibular swelling. Treat per above. Keep patient on NPO Qualifiers: Qualified Code(s): R13.10 - Dysphagia, unspecified - Time Spent With Patient Total time spent is greater than 50% in coordination of care (as documented) at patient's floor/unit and/or counseling patient: Greater than 35 minutes - Subjective Interval history: Patient reports worsening neck pain today. He aspirated on pureed diet last night. Has difficulty swallowing PO medications. Admits to chills overnight. Denies fevers, nausea, or vomiting. Continues to have shortness of breath and cough. No difficulty voiding. Patient's states that the patient had visual and auditory hallucinations. When asked, patient denies having hallucinations and says he slept well. He is teary eyed today because he does not believe that he is going to get better. Expresses sadness. Denies SI. Patient aspirated this AM. Now on NPO. - Constitutional Vitals: Temp Pulse Resp BP Pulse Ox 97.6 F 92 15 107/68 93 09/02/17 06:33 09/02/17 06:33 09/02/17 06:33 09/02/17 06:33 09/02/17 06:33 General appearance: Present: A&O X 3 - Head Head exam: Present: atraumatic, normocephalic - Eye Eye exam: Present: EOMI, conjuntiva pink, sclera anicteric - Neck Neck exam general surgery: Present: lymphadenopathy, supple, trachea midline Additional comments: Left submandibular lymphadenopathy with cellulitis. mobile cystic nodule. - Respiratory Respiratory exam: Present: CTAB. Absent: accessory muscle use, rales, rhonchi, wheezes - Cardiovascular Cardiovascular exam: Present: RRR, +S1, +S2. Absent: diastolic murmur, gallop, rubs, systolic murmur - GI/Abdominal GI/Abdominal exam: Present: hypoactive bowel sounds, soft, no peritoneal signs. Absent: distended, tenderness - Extremities Exam Extremities exam: Present: warm, radial pulses palpable and symmetrical. Absent : calf tenderness, cyanotic, pedal edema - Neurological Exam Neurological exam: Present: alert, CN II-XII intact, oriented X3, no focal deficits. Absent: pronater drift, facial droop, speech deficit - Skin Skin exam: Present: dry, intact Internal Medicine: Result - Labs CBC & Chem 7: 09/02/17 04:37 09/02/17 04:37 Labs: Short CBC 09/02/17 Range/Units 04:37 WBC 7.5 (4.3-11.1) K/mcL Hgb 11.3 L (12.9-16.9) g/dL Hct 33.3 L (37.5-50.1) % Plt Count 229 (140-400) K/mcL Neutrophils # 5.1 (1.6-8.9) K/mcL BMP 09/02/17 04:37 Sodium 141 Potassium 3.3 L Chloride 102 Carbon Dioxide 29 BUN 9 Creatinine 0.94 Glucose 98 Calcium 8.7 - ABG Interpretation ABG results: PT/INR, D-dimer D-Dimer 1592 ng/mLFEU (0-500) H 08/31/17 16:35 - Impressions Impressions Videofluoroscopic Swallow 09/01/17 08:53 IMPRESSION: 1. Residue that vallecular with applesauce consistency barium. No evidence of aspiration. 2. Laryngeal penetration and aspiration with the thin barium. 3. Laryngeal penetration, with possible aspiration with nectar and honey thick barium. 4. Prevertebral edema in setting of recent cervical spine surgery. 5. Please see separate speech pathology report for full discussion of findings and recommendations. D/ / Gera Begum MD / Gera Begum MD Interpreting Provider: Gera Begum MD Soft Tissue Neck CT 09/01/17 16:56 IMPRESSION: 1. The patient has scattered opacities in the included lungs consistent with fairly extensive airspace disease. 2. Enlarged lymph node adjacent to the left submandibular gland. 3. Soft tissue density in the left parapharyngeal space of 1.9 x 2 x 1.9 cm without air bubbles. This may represent small phlegmon. Lack of IV contrast limits assessment for abscess. D/ / 09/01/2017 17:55:31 Carla Barry MD / myles Interpreting Provider: Carla Barry MD Consult Discharge Plan - Plan Referrals: Dieter Leonardo DO [Primary Care Provider] - <Rigoberto Davis Kalpesh - Last Filed: 09/02/17 13:17> Date of Encounter: 09/02/17 - Assessment and plan (1) HTN (hypertension) Current Visit: No Status: Chronic Qualifiers: Hypertension type: essential hypertension Qualified Code(s): I10 - Essential (primary) hypertension (2) History of seizure Current Visit: No Status: Chronic (3) Status post cervical spinal fusion Current Visit: No Status: Acute (4) Hypoxia Current Visit: Yes Status: Acute (5) Pneumonia Current Visit: Yes Status: Acute Qualifiers: Pneumonia type: aspiration pneumonia Laterality: unspecified laterality Lung location: unspecified part of lung Qualified Code(s): J69.0 - Pneumonitis due to inhalation of food and vomit (6) KRISTA (acute kidney injury) Current Visit: Yes Status: Acute (7) DVT prophylaxis Current Visit: Yes Status: Acute (8) Abscess or cellulitis of submandibular region Current Visit: Yes Status: Acute (9) Dysphagia Current Visit: Yes Status: Acute Qualifiers: Qualified Code(s): R13.10 - Dysphagia, unspecified - Time Spent With Patient Total time spent is greater than 50% in coordination of care (as documented) at patient's floor/unit and/or counseling patient: - Constitutional Vitals: Temp Pulse Resp BP Pulse Ox 98.7 F 86 15 129/77 93 09/02/17 11:51 09/02/17 11:51 09/02/17 11:51 09/02/17 11:51 09/02/17 11:51 Internal Medicine: Result - Labs CBC & Chem 7: 09/02/17 04:37 09/02/17 04:37 Labs: Short CBC 09/02/17 Range/Units 04:37 WBC 7.5 (4.3-11.1) K/mcL Hgb 11.3 L (12.9-16.9) g/dL Hct 33.3 L (37.5-50.1) % Plt Count 229 (140-400) K/mcL Neutrophils # 5.1 (1.6-8.9) K/mcL BMP 09/02/17 04:37 Sodium 141 Potassium 3.3 L Chloride 102 Carbon Dioxide 29 BUN 9 Creatinine 0.94 Glucose 98 Calcium 8.7 - ABG Interpretation ABG results: PT/INR, D-dimer D-Dimer 1592 ng/mLFEU (0-500) H 08/31/17 16:35 - Impressions Impressions Soft Tissue Neck CT 09/01/17 16:56 IMPRESSION: 1. The patient has scattered opacities in the included lungs consistent with fairly extensive airspace disease. 2. Enlarged lymph node adjacent to the left submandibular gland. 3. Soft tissue density in the left parapharyngeal space of 1.9 x 2 x 1.9 cm without air bubbles. This may represent small phlegmon. Lack of IV contrast limits assessment for abscess. D/ / 09/01/2017 17:55:31 Carla Barry MD / myles Interpreting Provider: Carla Barry MD - Attending Attestation I examined this patient 09/02, and my medical decision-making was reviewed with the Resident Physician. I agree with the documented findings, disposition and treatment plan as described except to the extent set forth below. 62-year-old male with medical history of seizures, hypertension, some possible mental retardation, was admitted for acute respiratory failure with hypoxia secondary to multifocal pneumonia, aspiration pneumonia. The patient is seen and evaluated at the bedside with family. Of note, NEck and soft tissue CT done 09/01 showed parapharygeal phlegmon, abscess indeterminate as contrast was not given He denies new complains, had one episode of choking on his pureed diet Physical examination: He is alert and oriented 3, he has a left lateral neck region redness and swelling, close to the incision site from his previous cervical fusion, he has right middle and lower lobe bronchi, heart sounds S1-S2 , abdomen is soft and nontender, no pedal edema. Labs and imaging reviewed: Anemia possibly dilutional from IV fluids, acute kidney injury is resolved, CT angiogram negative for pulmonary embolism. Barium swallow noted with multiple micro-aspiration, Neck CT noted Assessment: Acute respiratory failure with hypoxia secondary to aspiration pneumonia, possible healthcare associated pneumonia as patient was recently discharged from this facility and had surgery, acute kidney injury. Parapahrygeal phelgmon vs abscess Continue Fluid hydration, decreased to 75 cc per hr, surgery consulted for neck swelling-states to consult Dr. Antunez or ENT. Dr Antunez consulted, he will see the patient 5/6 a.m. KEep NPO except essential meds, Continue vanco and Zosyn, Speech and swallow eval noted,will reconsult due to persistent aspiration , replace potassium Rest of details as in the resident physician's documentation
[2017-09-02] MEDS ORDERED: 0.9 % Sodium Chloride 1,000 ML IVC SCH (13:15)
[2017-09-02] MEDS: diazePAM 10 MG/2 ML SYRINGE IVP SCH (20:22)
[2017-09-03] MEDS ORDERED: *HR* FentaNYL (PF) 100 MCG/2 ML VIAL IVP ONE (01:09)
[2017-09-03] MEDS: Ipratropium/Albuterol Neb 3 ML IH SCH ×4 (03:40→21:15)
[2017-09-03] MEDS ORDERED: *HR* LORazepam 2 MG/ML VIAL IVP ONE (03:57)
[2017-09-03] MEDS: Piperacillin/Tazobactam 3.375 GM in 0.9 % Sodium Chloride Mini Bag 100 ML IVPB SCH ×3 (04:33→18:35)
[2017-09-03] MEDS: *HR* Heparin 5,000 UNIT/ML VIAL SQ SCH ×3 (04:33→22:21)
[2017-09-03 06:27] LABS: BUN/Creatinine Ratio 13 (6-26); Blood Urea Nitrogen 11 mg/dL (8-23); Calcium 8.6 mg/dL (8.6-10.3); Carbon Dioxide 27 mEq/L (23-29); Chloride 107 mEq/L (98-107); Glucose 93 mg/dL (70-105); Osmolality,Calculated 299 (280-300); Potassium 3.1 mEq/L (3.5-5.1); Sodium 145 mEq/L (136-145); eGFR For African Americans > 60 (> 60); eGFR For Non-African Americans > 60 (> 60)
[2017-09-03 06:33] LABS: Basophils % 0.4 %; Eosinophils # 0.1 K/mcL (0.0-0.6); Eosinophils % 0.9 %; Hematocrit 33.3 % (37.5-50.1); Hemoglobin 11.2 g/dL (12.9-16.9); Immature Granulocytes % 0.6 % (0-4); Lymphocytes # 1.2 K/mcL (0.6-4.6); Lymphocytes % 13.7 %; Mean Corpuscular HGB Conc 33.6 g/dL (31.6-35.5); Mean Corpuscular Volume 98.2 fL (83.0-100.0); Mean Platelet Volume 9.6 fL (9.4-12.4); Monocytes # 0.7 K/mcL (0.0-1.3); Monocytes % 8.6 %; Neutrophils # 6.5 K/mcL (1.6-8.9); Platelet Count 248 K/mcL (140-400); Red Blood Count 3.39 M/mcL (4.19-5.50); Red Cell Distribution Width 12.6 % (11.5-14.5); Segmented Neutrophils % 75.8 %
--- NOTE | 2017-09-03 08:44 | Internal Med Progress Note ---
<Rigoberto Davis - Last Filed: 09/03/17 13:40> Date of Encounter: 09/03/17 - Assessment and plan (1) HTN (hypertension) Current Visit: No Status: Chronic Qualifiers: Hypertension type: essential hypertension Qualified Code(s): I10 - Essential (primary) hypertension (2) History of seizure Current Visit: No Status: Chronic (3) Status post cervical spinal fusion Current Visit: No Status: Acute (4) Hypoxia Current Visit: Yes Status: Acute (5) Pneumonia Current Visit: Yes Status: Acute Qualifiers: Pneumonia type: aspiration pneumonia Laterality: unspecified laterality Lung location: unspecified part of lung (6) KRISTA (acute kidney injury) Current Visit: Yes Status: Acute (7) DVT prophylaxis Current Visit: Yes Status: Acute (8) Abscess or cellulitis of submandibular region Current Visit: Yes Status: Acute (9) Dysphagia Current Visit: Yes Status: Acute - Time Spent With Patient Total time spent is greater than 50% in coordination of care (as documented) at patient's floor/unit and/or counseling patient: - Constitutional Vitals: Temp Pulse Resp BP Pulse Ox 98.6 F 80 12 151/83 96 09/03/17 12:15 09/03/17 12:15 09/03/17 12:15 09/03/17 12:15 09/03/17 12:15 Internal Medicine: Result - Labs CBC & Chem 7: 09/03/17 05:14 09/03/17 05:14 Labs: Short CBC 09/03/17 Range/Units 05:14 WBC 8.5 (4.3-11.1) K/mcL Hgb 11.2 L (12.9-16.9) g/dL Hct 33.3 L (37.5-50.1) % Plt Count 248 (140-400) K/mcL Neutrophils # 6.5 (1.6-8.9) K/mcL BMP 09/03/17 05:14 Sodium 145 Potassium 3.1 L Chloride 107 Carbon Dioxide 27 BUN 11 Creatinine 0.82 Glucose 93 Calcium 8.6 - ABG Interpretation ABG results: PT/INR, D-dimer D-Dimer 1592 ng/mLFEU (0-500) H 08/31/17 16:35 Consult Discharge Plan - Plan Referrals: Dieter Leonardo DO [Primary Care Provider] - - Attending Attestation I examined this patient 09/03, and my medical decision-making was reviewed with the Resident Physician. I agree with the documented findings, disposition and treatment plan as described except to the extent set forth below. 62-year-old male with medical history of seizures, hypertension, some possible mental retardation, was admitted for acute respiratory failure with hypoxia secondary to multifocal pneumonia, aspiration pneumonia. The patient is seen and evaluated at the bedside with family. Of note, Neck and soft tissue CT done 09/01 showed parapharygeal phlegmon, abscess indeterminate as contrast was not given He denies new complains, had one episode of choking on his pureed diet He ahs been NPO Of note, he is agitated for not being able to eat anything, and is requesting transfer [place] if we are "unable to fix" this. His at the bedside educated extensively on possibility of TPN if dysphagia persists and possible feeding tube while undergoing speech therapy/swallowing exercises. She verbalized understandgin, he is pending review by Dr. Antunez Physical examination: He is alert and oriented 3, he has a left lateral neck region redness and swelling, close to the incision site from his previous cervical fusion, he has right middle and lower lobe bronchi, heart sounds S1-S2 , abdomen is soft and nontender, no pedal edema. Labs and imaging reviewed: Anemia stable, acute kidney injury is resolved, mild hypokalemia, CT angiogram negative for pulmonary embolism. Barium swallow noted with multiple micro-aspiration, Neck CT noted Assessment: Acute respiratory failure with hypoxia secondary to aspiration pneumonia, possible healthcare associated pneumonia as patient was recently discharged from this facility and had surgery, acute kidney injury. Parapahrygeal phelgmon vs abscess, Dysphagia Continue Fluid hydration, change to D/saline 75 cc per hr, surgery consulted for neck swelling-states to consult Dr. Antunez or ENT. Dr Antunez consulted, he will see the patient 5 a.m. KEep NPO except essential meds, Continue vanco and Zosyn, Speech and swallow eval noted,will reconsult due to persistent aspiration, replace potassium Rest of details as in the resident physician's documentation <Jasen Costello - Last Filed: 09/03/17 14:51> Date of Encounter: 09/03/17 Time of Encounter: 08:45 - Assessment and plan (1) Abscess or cellulitis of submandibular region Current Visit: Yes Status: Acute Assessment and plan: Patient has worsening left submandibular swelling near incision site s/p cervical decompression on 08/29/17. CT neck w/o contrast demonstrates scattered opacities in the included lung. enlarged lymph node adjacent to left submandibular gland. soft tissue density in left parapharyngeal space, small phlegmon vs abscess. Dr. Gallagher will see the patient today. Will follow-up on recommendations. ENT for possible I&D if needed. Dr. Davis at bedside, patient was educated on the importance of keeping his peripheral lines intact and extensively explained reasoning behind keeping him NPO. TTP and feeding tube discussed in the event patient continues to aspirate. Patient and demonstrates understanding. (2) Dysphagia Current Visit: Yes Status: Acute Assessment and plan: Likely secondary to post-surgical incision site infection vs phlegmon vs nerve damage. Treat per above. Pending Dr. Drake's recommendations. Barium swallow noted with multiple micro-aspiration. Start D5 fluids. replenish electrolytes as appropriate. Keep patient on NPO (3) Pneumonia Current Visit: Yes Status: Acute Assessment and plan: Pneumonia 2/2 aspiration vs. healthcare associated. Continue with vancomycin and Zosyn. IV fluids. Patient failed swallow test. Unable to tolerate solids or liquids. Blood cultures negative x2 NPO now. Switch medications to IV. Psychiatric medications can be crushed. Sputum culture with many Gram + cocci and few gram negative rods. Possible contamination. Repeat sputum culture pending. Qualifiers: Pneumonia type: aspiration pneumonia Laterality: unspecified laterality Lung location: unspecified part of lung (4) HTN (hypertension) Current Visit: No Status: Chronic Assessment and plan: Stable. Unable to tolerate PO intake. Continue to hold antihypertensives. Qualifiers: Hypertension type: essential hypertension Qualified Code(s): I10 - Essential (primary) hypertension (5) History of seizure Current Visit: No Status: Chronic Assessment and plan: Continue home antiepileptics. (6) Status post cervical spinal fusion Current Visit: No Status: Acute Assessment and plan: Continue pain control. Patient is status post anterior cervical decompression and fusion of C4-C7 (7) Hypoxia Current Visit: Yes Status: Acute Assessment and plan: Secondary to pneumonia. Treat per pneumonia. (8) KRISTA (acute kidney injury) Current Visit: Yes Status: Acute Assessment and plan: Improved. Likely secondary to dehydration. We will give IV fluids and check labs in the morning. Avoid nephrotoxins. (9) DVT prophylaxis Current Visit: Yes Status: Acute Assessment and plan: Heparin subcutaneous (10) Hypokalemia Current Visit: Yes Status: Acute Assessment and plan: Received K+ infusion. Monitor with AM labs. - Time Spent With Patient Total time spent is greater than 50% in coordination of care (as documented) at patient's floor/unit and/or counseling patient: Greater than 35 minutes - Subjective Interval history: Dr. Davis at bedside. Patient continues to be agitated. He is worried that he will never be able to eat again. States that he does not want feeding tube. Left neck pain continues to be worsen. Currently 12/08. Patient states that he is depressed. Denies CP, abdominal pain. No difficulty voiding. No further acute complaints. - Constitutional Vitals: Temp Pulse Resp BP Pulse Ox 98.6 F 88 20 132/74 93 09/03/17 06:57 09/03/17 06:57 09/03/17 06:57 09/03/17 06:57 09/03/17 06:57 General appearance: Present: A&O X 3 - Head Head exam: Present: atraumatic, normocephalic - Eye Eye exam: Present: EOMI, conjuntiva pink, sclera anicteric - Neck Neck exam general surgery: Present: lymphadenopathy, trachea midline Additional comments: Left submadibular edema. No discharge. - Respiratory Respiratory exam: Present: accessory muscle use. Absent: rales, rhonchi, wheezes - Cardiovascular Cardiovascular exam: Present: +S1, +S2, tachycardia. Absent: diastolic murmur, gallop, rubs, systolic murmur - GI/Abdominal GI/Abdominal exam: Present: hypoactive bowel sounds, soft, no peritoneal signs. Absent: distended, tenderness - Extremities Exam Extremities exam: Present: warm, radial pulses palpable and symmetrical. Absent : calf tenderness, cyanotic, pedal edema - Neurological Exam Neurological exam: Present: altered, oriented X3, no focal deficits. Absent: pronater drift, facial droop, speech deficit - Skin Skin exam: Present: dry, intact Internal Medicine: Result - Labs CBC & Chem 7: 09/03/17 05:14 09/03/17 05:14 Labs: Short CBC 09/03/17 Range/Units 05:14 WBC 8.5 (4.3-11.1) K/mcL Hgb 11.2 L (12.9-16.9) g/dL Hct 33.3 L (37.5-50.1) % Plt Count 248 (140-400) K/mcL Neutrophils # 6.5 (1.6-8.9) K/mcL BMP 09/03/17 05:14 Sodium 145 Potassium 3.1 L Chloride 107 Carbon Dioxide 27 BUN 11 Creatinine 0.82 Glucose 93 Calcium 8.6 - ABG Interpretation ABG results: PT/INR, D-dimer D-Dimer 1592 ng/mLFEU (0-500) H 08/31/17 16:35
[2017-09-03] MEDS: OXYCODONE Oral CONC 10 MG/0.5 ML ORAL.SYG SL PRN ×2 (09:45→16:55)
[2017-09-03] MEDS: D5% in 0.9% NACL 1,000 ML IVC SCH ×2 (09:46→23:05)
[2017-09-03] MEDS: diazePAM 10 MG/2 ML SYRINGE IVP SCH ×3 (10:42→22:54)
[2017-09-03] MEDS: *HR* Morphine 2 MG/ML SYRINGE IVP PRN (20:00)
--- NOTE | 2017-09-03 20:10 | Event Note ---
Date of Encounter: 09/03/17 Time of Encounter: 07:30 Patient is requesting change of code status. He is requesting full code. I educated patient that a full code means in the event his heart stops, he will allow all interventions needed to get his heart started. This may include chest compressions and defibrillation to shock the heart out of a life-threatening heart rhythm. Placing a breathing tube in the airway to assist with ventilation and medications to treat the heart are also resuscitation interventions. Not all patients require each step. But if a patient is a full code, it means they are willing to allow any of the above measures. Patient states that he understands and is agreeable to code status change. Dr. Gallagher comes to bedside at 19:20. He recommends no further recommendations needed for left submandibular swelling and that he will continue to reassess. We will contact him if cellulitis worsens. In addition, he educated the patient on likely legal office administrator consult tomorrow because of his dysphagia. We went over options of feeding including tube feedings, TPN, but patient understands that it ultimately depends on legal office administrator recommendations. Further conversation reveals that patient has extensive psychiatric history, including auditory and visual hallucinations. I recommend psychiatric consult when available.
[2017-09-04] MEDS: OXYCODONE Oral CONC 10 MG/0.5 ML ORAL.SYG SL PRN ×2 (02:36→09:34)
[2017-09-04] MEDS: Piperacillin/Tazobactam 3.375 GM in 0.9 % Sodium Chloride Mini Bag 100 ML IVPB SCH ×3 (03:26→20:23)
[2017-09-04] MEDS: Ipratropium/Albuterol Neb 3 ML IH SCH ×4 (04:16→21:38)
[2017-09-04] MEDS: *HR* Heparin 5,000 UNIT/ML VIAL SQ SCH ×3 (06:52→20:25)
[2017-09-04] MEDS ORDERED: Aminoglycoside Consult 1 EACH MC ONE (07:43)
--- NOTE | 2017-09-04 07:45 | Internal Med Progress Note ---
<Rigoberto Davis T - Last Filed: 09/04/17 15:59> Date of Encounter: 09/04/17 - Assessment and plan (1) HTN (hypertension) Current Visit: No Status: Chronic Qualifiers: Hypertension type: essential hypertension Qualified Code(s): I10 - Essential (primary) hypertension (2) History of seizure Current Visit: No Status: Chronic (3) Status post cervical spinal fusion Current Visit: No Status: Acute (4) Hypoxia Current Visit: Yes Status: Acute (5) Pneumonia Current Visit: Yes Status: Acute Qualifiers: Pneumonia type: aspiration pneumonia Laterality: unspecified laterality Lung location: unspecified part of lung (6) KRISTA (acute kidney injury) Current Visit: Yes Status: Acute (7) DVT prophylaxis Current Visit: Yes Status: Acute (8) Abscess or cellulitis of submandibular region Current Visit: Yes Status: Acute (9) Dysphagia Current Visit: Yes Status: Acute (10) Hypokalemia Current Visit: Yes Status: Acute - Time Spent With Patient Total time spent is greater than 50% in coordination of care (as documented) at patient's floor/unit and/or counseling patient: - Constitutional Vitals: Temp Pulse Resp BP Pulse Ox 98.5 F 69 16 148/72 94 09/04/17 15:00 09/04/17 15:00 09/04/17 15:00 09/04/17 15:00 09/04/17 15:00 Internal Medicine: Result - Labs CBC & Chem 7: 09/04/17 06:47 09/04/17 06:47 Labs: Short CBC 09/04/17 Range/Units 06:47 WBC 8.3 (4.3-11.1) K/mcL Hgb 10.5 L (12.9-16.9) g/dL Hct 31.5 L (37.5-50.1) % Plt Count 266 (140-400) K/mcL Neutrophils # 5.5 (1.6-8.9) K/mcL BMP 09/04/17 06:47 Sodium 147 H Potassium 3.1 L Chloride 110 H Carbon Dioxide 29 BUN 8 Creatinine 0.71 Glucose 125 H Calcium 8.5 L - ABG Interpretation ABG results: PT/INR, D-dimer D-Dimer 1592 ng/mLFEU (0-500) H 08/31/17 16:35 Consult Discharge Plan - Plan Referrals: Dieter Leonardo DO [Primary Care Provider] - - Attending Attestation I examined this patient 09/04, and my medical decision-making was reviewed with the Resident Physician. I agree with the documented findings, disposition and treatment plan as described except to the extent set forth below. 62-year-old male with medical history of seizures, hypertension, some possible mental retardation, was admitted for acute respiratory failure with hypoxia secondary to multifocal pneumonia, aspiration pneumonia. The patient is seen and evaluated at the bedside with family. Of note, Neck and soft tissue CT done 09/01 showed parapharygeal phlegmon, abscess indeterminate as contrast was not given He denies new complains, had one episode of choking on his pureed diet He has been NPO The patient and His at the bedside educated extensively on possibility of TPN if dysphagia persists and possible feeding tube while undergoing speech therapy/swallowing exercises. She verbalized understanding Spine surgery eval from 09/03 noted DSpeech therapy has signed off We will consult ENT surgery today In the meantime, we will start TPN via a PICC Line. Patient may eventually need a PEG tube placement Psych eval today 09/04 noted Physical examination: He is alert and oriented 3, he has a left lateral neck region redness and swelling, close to the incision site from his previous cervical fusion, he has right middle and lower lobe bronchi, heart sounds S1-S2 , abdomen is soft and nontender, no pedal edema. Labs and imaging reviewed: CBC ans Chem stable, acute kidney injury is resolved , mild hypokalemia, CT angiogram negative for pulmonary embolism. Barium swallow noted with multiple micro-aspiration, Neck CT noted Assessment: Acute respiratory failure with hypoxia secondary to aspiration pneumonia, possible healthcare associated pneumonia as patient was recently discharged from this facility and had surgery, acute kidney injury. Parapahrygeal phelgmon vs abscess, Dysphagia Continue D5/saline 75 cc per hr, Dr. Harmony gomez noted, consulted ENT-for review a.m, . 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 CT neck w/o contrast demonstrates scattered opacities in the included lung. enlarged lymph node adjacent to left submandibular gland. soft tissue density in left parapharyngeal space, small phlegmon vs abscess. Dr. Drake saw the patient yesterday, recommends nothing by mouth We will consult ENT for opinion fluid pocket and whether or not it will need to be drained PICC line inserted, begin TPN nutrition May require insertion of PEG tube Start IV steroids for soft tissue of the neck inflammation (2) Status post cervical spinal fusion Current Visit: No Status: Acute Assessment and plan: Continue pain control. Patient is status post anterior cervical decompression and fusion of C4-C7 (3) Pneumonia Current Visit: Yes Status: Acute Assessment and plan: Pneumonia 2/2 aspiration vs. healthcare associated. Patient failed swallow test. Unable to tolerate solids or liquids. Blood cultures negative x2 Sputum culture with many Gram + cocci and few gram negative rods. Possible contamination. Repeat sputum culture pending. Vancomycin and Zosyn day 5 Qualifiers: Pneumonia type: aspiration pneumonia Laterality: unspecified laterality Lung location: unspecified part of lung (4) Dysphagia Current Visit: Yes Status: Acute Assessment and plan: Likely secondary to post-surgical incision site infection vs phlegmon vs nerve damage. Treat per above. Barium swallow noted with multiple micro-aspiration. Start D5 fluids. replenish electrolytes as appropriate. Keep patient on NPO ENT consult tomorrow Reconsult speech therapy following improvement of neck soft tissue edema Qualifiers: Dysphagia type: pharyngeal phase Qualified Code(s): R13.13 - Dysphagia, pharyngeal phase (5) HTN (hypertension) Current Visit: No Status: Chronic Assessment and plan: Stable. Unable to tolerate PO intake. Continue to hold antihypertensives. Qualifiers: Hypertension type: essential hypertension Qualified Code(s): I10 - Essential (primary) hypertension (6) History of seizure Current Visit: No Status: Chronic Assessment and plan: Continue home antiepileptics. (7) Hypokalemia Current Visit: Yes Status: Acute Assessment and plan: Received K+ infusion. Monitor with AM labs. (8) DVT prophylaxis Current Visit: Yes Status: Acute Assessment and plan: Heparin subcutaneous - Time Spent With Patient Total time spent is greater than 50% in coordination of care (as documented) at patient's floor/unit and/or counseling patient: - Subjective Interval history: Patient is seen and examined at bedside. He is experiencing significant pain today which she says is worse than it was previously. He continues to be unable to swallow, and he is feeling extremely hungry and thirsty. He otherwise has no acute complaints. - Constitutional Vitals: Temp Pulse Resp BP Pulse Ox 98.6 F 63 18 128/76 96 09/04/17 07:03 09/04/17 07:03 09/04/17 07:03 09/04/17 07:03 09/04/17 07:03 General appearance: Present: A&O X 3 Exam: Gen: Vitals noted. Appears mildly distressed. Patient speaks with a raspy voice HEENT: PERRL, oropharynx clear on visual inspection, Normocephalic, atraumatic Neck: There is surgical Steri-Strips present on the left anterior neck along with significant soft tissue edema and soreness to palpation Cardiac: RRR, no murmur, +S1/S2 Pulmonary: Coarse lung sounds throughout, with diffuse rhonchi bilaterally Abdomen: soft, nontender, BS noted, no guarding MSK: ROM intact, no joint swelling noted Extremities: no BLE edema, nontender calf, no cyanosis or clubbing Neuro: A&Ox3, moves all extremities, no focal deficits Psych: Appropriate mood and behavior Internal Medicine: Result - Labs CBC & Chem 7: 09/04/17 06:47 09/04/17 06:47 - ABG Interpretation ABG results: PT/INR, D-dimer D-Dimer 1592 ng/mLFEU (0-500) H 08/31/17 16:35
[2017-09-04 08:14] LABS: BUN/Creatinine Ratio 11 (6-26); Blood Urea Nitrogen 8 mg/dL (8-23); Carbon Dioxide 29 mEq/L (23-29); Chloride 110 mEq/L (98-107); Potassium 3.1 mEq/L (3.5-5.1); Sodium 147 mEq/L (136-145)
[2017-09-04 08:15] LABS: Calcium 8.5 mg/dL (8.6-10.3); Glucose 125 mg/dL (70-105); Osmolality,Calculated 304 (280-300); eGFR For African Americans > 60 (> 60); eGFR For Non-African Americans > 60 (> 60)
[2017-09-04 08:33] LABS: Basophils % 0.5 %; Eosinophils # 0.2 K/mcL (0.0-0.6); Eosinophils % 1.9 %; Hematocrit 31.5 % (37.5-50.1); Hemoglobin 10.5 g/dL (12.9-16.9); Immature Granulocytes % 1.4 % (0-4); Lymphocytes # 1.5 K/mcL (0.6-4.6); Lymphocytes % 18.4 %; Mean Corpuscular HGB Conc 33.3 g/dL (31.6-35.5); Mean Corpuscular Hemoglobin 32.9 pg (28.0-33.3); Mean Corpuscular Volume 98.7 fL (83.0-100.0); Mean Platelet Volume 9.8 fL (9.4-12.4); Monocytes % 11.4 %; Neutrophils # 5.5 K/mcL (1.6-8.9); Platelet Count 266 K/mcL (140-400); Red Blood Count 3.19 M/mcL (4.19-5.50); Red Cell Distribution Width 12.6 % (11.5-14.5); Segmented Neutrophils % 66.4 %
[2017-09-04] MEDS ORDERED: Potassium Chloride 40 MEQ, Lidocaine 1% 2 ML in D5% in Water 500 ML IVPB ONE (10:16)
--- NOTE | 2017-09-04 12:44 | Spine Progress Note ---
Date of Encounter: 09/03/17 Time of Encounter: 19:25 Subjective Principal diagnosis: s/p cervical fusion, dysphagia, aspiration pneumonia Interval history: Mrs. Gibbs is a 62-year-old gentleman well known to my practice who is status post recent anterior cervical decompression and fusion C4-C7. Preoperatively he had a neurologic deficit unable to abduct or elevate his right upper extremity. He has had complete neurologic recovery postsurgically. However the patient was recently admitted for hypoxia workup revealed aspiration pneumonia. He is currently on antibiotics and nothing by mouth. On exam he is afebrile vital signs are stable. He is neurovascularly intact with regard to his bilateral upper extremities. CT scan reveals postsurgical changes consistent with anterior cervical decompression and fusion C4-C7 with good placement of the hardware and interbody grafts. There is an unknown soft tissue neck mass in the paratracheal region that I do not favor to be abscess. It may be reasonable to reimage this in several days to see if it expands or if she he gets any signs of active cellulitis or infection. I had a long discussion with the patient reassuring him and family member present that he should receive a dietary consult as he may be nothing by mouth for an extended period until his dysphagia and aspiration improve. This may include parenteral nutrition, PEG tube, or Dobbhoff type tube. These recommendations will be per dietary. He can continue antibiotics. Patient is sent I do not favor any surgical intervention in there are no indications for such. If concerning signs develop for a neck abscess we will consult our ear nose and throat colleagues. Patient appears to understand is amenable to the plan. Objective Vital signs: Vital Signs Temp Pulse Resp BP Pulse Ox 09/04/17 11:57 98.2 F 69 16 147/78 96 09/04/17 10:48 16 93 09/04/17 07:03 98.6 F 63 18 128/76 96 09/04/17 04:16 17 93 09/04/17 04:07 92 09/04/17 03:34 98.3 F 69 16 129/60 92 09/03/17 23:25 98.7 F 71 16 123/66 94 09/03/17 21:15 16 94 09/03/17 19:18 99.1 F 74 18 115/67 94 09/03/17 16:11 16 96 09/03/17 15:49 98.2 F 78 14 135/75 95 Intake and Output 09/03/17 09/04/17 09/04/17 23:59 07:59 15:59 Intake Total 1100 / 1100 250 / 250 Output Total 650 / 650 310 / 310 300 / 300 Balance 450 / 450 -60 / -60 -300 / -300 Intake: IV Fluids 1100 / 1100 250 / 250 D5% And 0.9% Nacl 1000 Ml 1,000 1000 / 1000 ML @ 75 mls/hr IVC .[id number] EMELINA Rx#:[id number] Zosyn 3.375 GM In 0.9 % Sodium 100 / 100 Chloride (Mini-Bag +) 100 ML @ 25 mls/hr IVPB Q8H [facility]EL[facility] Rx#: [id number] Vancocin 1,250 MG In 0.9 % 250 / 250 Sodium Chloride 250 ML @ 166. 667 mls/hr IVPB Q12H [facility] Rx#: [id number] Oral 0 / 0 Output: Urine 650 / 650 310 / 310 300 / 300 Other: Meal NPO Weight 86.6 kg Blood Glucose* 95 109 119 Patient Weight 09/04/17 23:59 Weight 86.6 kg - Labs CBC & BMP: 09/04/17 06:47 09/04/17 06:47 Labs: Abnormal lab results RBC 3.19 M/mcL (4.19-5.50) L 09/04/17 06:47 Hgb 10.5 g/dL (12.9-16.9) L 09/04/17 06:47 Hct 31.5 % (37.5-50.1) L 09/04/17 06:47 D-Dimer 1592 ng/mLFEU (0-500) H 08/31/17 16:35 Sodium 147 mEq/L (136-145) H 09/04/17 06:47 Potassium 3.1 mEq/L (3.5-5.1) L 09/04/17 06:47 Chloride 110 mEq/L (98-107) H 09/04/17 06:47 Glucose 125 mg/dL (70-105) H 09/04/17 06:47 POC Glucose 134 mg/dL (70-99) H 09/03/17 17:24 Calculated Osmolality 304 (280-300) H 09/04/17 06:47 Calcium 8.5 mg/dL (8.6-10.3) L 09/04/17 06:47 B-Natriuretic Peptide 170 pg/mL (Less than 100) H 08/31/17 16:35 Consult Discharge Plan - Plan Referrals: Dieter Leonardo DO [Primary Care Provider] -
[2017-09-04] MEDS ORDERED: D10% in Water 500 ML IVC PRN (12:49)
[2017-09-04] MEDS: diazePAM 10 MG/2 ML SYRINGE IVP SCH ×3 (13:21→22:19)
[2017-09-04] MEDS: D5% in 0.9% NACL 1,000 ML IVC SCH (13:30)
[2017-09-04] MEDS: *HR* Morphine 2 MG/ML SYRINGE IVP PRN (14:14)
[2017-09-04] MEDS ORDERED: Lidocaine -MPF 1% 5 ML AMPUL INFILT ONE (16:21)
[2017-09-04] MEDS ORDERED: Clinimix E 5%-15% SOLUTION 2,000 ML with MVI, adult with vitamin K 10 ML IVC SCH (17:00)
[2017-09-04] MEDS: OXYCODONE Oral CONC 10 MG/0.5 ML ORAL.SYG SL SCH ×2 (17:14→20:21)
[2017-09-04] MEDS: MORPHINE SUL Oral CONC 10 MG/0.5 ML ORAL.SYG SL PRN ×2 (17:42→22:20)
[2017-09-05] MEDS ORDERED: methylPREDNISolone 125 MG/2 ML VIAL IVP SCH
[2017-09-05] MEDS: OXYCODONE Oral CONC 10 MG/0.5 ML ORAL.SYG SL SCH ×6 (00:40→20:59)
[2017-09-05] MEDS ORDERED: MORPHINE SUL Oral CONC 10 MG/0.5 ML ORAL.SYG SL ONE (01:45)
[2017-09-05] MEDS: Piperacillin/Tazobactam 3.375 GM in 0.9 % Sodium Chloride Mini Bag 100 ML IVPB SCH ×3 (03:59→20:59)
[2017-09-05] MEDS: D5% in 0.9% NACL 1,000 ML IVC SCH (04:09)
[2017-09-05 04:21] LABS: Basophils % 0.4 %; Eosinophils # 0.1 K/mcL (0.0-0.6); Eosinophils % 0.7 %; Hemoglobin 11.6 g/dL (12.9-16.9); Immature Granulocytes % 1.9 % (0-4); Lymphocytes # 0.8 K/mcL (0.6-4.6); Lymphocytes % 7.8 %; Mean Corpuscular HGB Conc 34.1 g/dL (31.6-35.5); Mean Corpuscular Hemoglobin 33.2 pg (28.0-33.3); Mean Corpuscular Volume 97.4 fL (83.0-100.0); Mean Platelet Volume 9.4 fL (9.4-12.4); Monocytes # 0.7 K/mcL (0.0-1.3); Monocytes % 7.3 %; Neutrophils # 7.9 K/mcL (1.6-8.9); Platelet Count 268 K/mcL (140-400); Red Blood Count 3.49 M/mcL (4.19-5.50); Red Cell Distribution Width 12.6 % (11.5-14.5); Segmented Neutrophils % 81.9 %
[2017-09-05] MEDS: Ipratropium/Albuterol Neb 3 ML IH SCH ×4 (04:35→21:56)
[2017-09-05 04:37] LABS: BUN/Creatinine Ratio 8 (6-26); Blood Urea Nitrogen 6 mg/dL (8-23); Calcium 8.6 mg/dL (8.6-10.3); Carbon Dioxide 29 mEq/L (23-29); Chloride 106 mEq/L (98-107); Glucose 164 mg/dL (70-105); Osmolality,Calculated 303 (280-300); Potassium 3.3 mEq/L (3.5-5.1); Sodium 146 mEq/L (136-145); eGFR For African Americans > 60 (> 60); eGFR For Non-African Americans > 60 (> 60)
[2017-09-05 04:38] LABS: Magnesium 1.6 mg/dL (1.6-2.6); Phosphorous 2.3 mg/dL (2.7-4.5)
[2017-09-05] MEDS: *HR* Heparin 5,000 UNIT/ML VIAL SQ SCH ×3 (06:11→20:58)
--- NOTE | 2017-09-05 07:20 | Internal Med Progress Note ---
<Jules Whitlock - Last Filed: 09/05/17 11:31> Date of Encounter: 09/05/17 Time of Encounter: 07:50 - Assessment and plan (1) Abscess or cellulitis of submandibular region Current Visit: Yes Status: Acute Assessment and plan: Patient has worsening left submandibular swelling near incision site s/p cervical decompression on 08/29/17. CT neck w/o contrast demonstrates scattered opacities in the included lung. enlarged lymph node adjacent to left submandibular gland. soft tissue density in left parapharyngeal space, small phlegmon vs abscess. PICC line inserted, begin TPN nutrition. Will require PEG tube ENT did see patient, is not suspicious of abscess or substantial fluid pocket at this time Started IV 10 mg Decadron every 8 hours per ENT evaluation for inflammation He will require ENT follow-up (2) Pneumonia Current Visit: Yes Status: Acute Assessment and plan: Pneumonia 2/2 aspiration vs. healthcare associated. Patient failed swallow test. Unable to tolerate solids or liquids. Blood cultures negative x2 Sputum culture with many Gram + cocci and few gram negative rods. Possible contamination. Repeat sputum culture pending. Stop vancomycin Continue Zosyn day 6 Qualifiers: Pneumonia type: aspiration pneumonia Aspiration pneumonia type: unspecified Laterality: unspecified laterality Lung location: unspecified part of lung Qualified Code(s): J69.0 - Pneumonitis due to inhalation of food and vomit (3) Status post cervical spinal fusion Current Visit: No Status: Acute Assessment and plan: Continue pain control. Patient is status post anterior cervical decompression and fusion of C4-C7 (4) Dysphagia Current Visit: Yes Status: Acute Assessment and plan: Likely secondary to post-surgical incision site infection vs phlegmon vs nerve damage. Treat per above. Barium swallow noted with multiple micro-aspiration. Keep patient NPO, will require insertion of PEG tube today or tomorrow We did start TPN yesterday after insertion of PICC line Reconsult speech therapy following improvement of neck soft tissue edema Continue to replace electrolytes as needed Qualifiers: Dysphagia type: pharyngeal phase Qualified Code(s): R13.13 - Dysphagia, pharyngeal phase (5) HTN (hypertension) Current Visit: No Status: Chronic Assessment and plan: Stable. Unable to tolerate PO intake. Continue to hold antihypertensives. Qualifiers: Hypertension type: essential hypertension Qualified Code(s): I10 - Essential (primary) hypertension (6) History of seizure Current Visit: No Status: Chronic Assessment and plan: Continue home antiepileptics. (7) Hypokalemia Current Visit: Yes Status: Acute Assessment and plan: Received K+ infusion. Monitor with AM labs. (8) DVT prophylaxis Current Visit: Yes Status: Acute Assessment and plan: Heparin subcutaneous (9) Vocal cord paralysis Current Visit: Yes Status: Acute Assessment and plan: Acute paralysis of left vocal cord per ENT Likely secondary to surgical complications including nerve damage as possible etiology We will be giving the patient IV Decadron to decrease inflammation The patient will require speech therapy and long-term treatment with ENT when tolerated Maintain nothing by mouth diet to prevent aspiration - Time Spent With Patient Total time spent is greater than 50% in coordination of care (as documented) at patient's floor/unit and/or counseling patient: - Subjective Interval history: Patient is seen and examined at bedside. The patient says that he is feeling significantly better than he was previously. He did undergo insertion of PICC line yesterday with initiation of TPN. - Constitutional Vitals: Temp Pulse Resp BP Pulse Ox 97.9 F 70 16 135/84 93 09/05/17 07:05 09/05/17 07:05 09/05/17 07:05 09/05/17 07:05 09/05/17 07:05 General appearance: Present: A&O X 3 Exam: Gen: Vitals noted. Appears comfortable in bed, NAD HEENT: PERRL, oropharynx clear on visual inspection, Normocephalic, atraumatic Neck: There is surgical Steri-Strips present on the left anterior neck along with significant soft tissue edema and soreness to palpation Cardiac: RRR, no murmur, +S1/S2 Pulmonary: Coarse lung sounds throughout, with diffuse rhonchi bilaterally. Significantly improved compared to prior day Abdomen: soft, nontender, BS noted, no guarding MSK: ROM intact, no joint swelling noted Extremities: no BLE edema, nontender calf, no cyanosis or clubbing Neuro: A&Ox3, moves all extremities, no focal deficits Psych: Appropriate mood and behavior Internal Medicine: Result - Labs CBC & Chem 7: 09/05/17 04:04 09/05/17 04:04 Labs: Short CBC 09/04/17 09/05/17 Range/Units 06:47 04:04 WBC 8.3 9.7 (4.3-11.1) K/mcL Hgb 10.5 L 11.6 L (12.9-16.9) g/dL Hct 31.5 L 34.0 L (37.5-50.1) % Plt Count 266 268 (140-400) K/mcL Neutrophils # 5.5 7.9 (1.6-8.9) K/mcL BMP 09/04/17 09/05/17 06:47 04:04 Sodium 147 H 146 H Potassium 3.1 L 3.3 L Chloride 110 H 106 Carbon Dioxide 29 29 BUN 8 6 L Creatinine 0.71 0.79 Glucose 125 H 164 H Calcium 8.5 L 8.6 - ABG Interpretation ABG results: PT/INR, D-dimer D-Dimer 1592 ng/mLFEU (0-500) H 08/31/17 16:35 Consult Discharge Plan - Plan Referrals: Dieter Leonardo DO [Primary Care Provider] - <Rigoberto Davis - Last Filed: 09/05/17 13:16> Date of Encounter: 09/05/17 - Assessment and plan (1) HTN (hypertension) Current Visit: No Status: Chronic Qualifiers: Hypertension type: essential hypertension Qualified Code(s): I10 - Essential (primary) hypertension (2) History of seizure Current Visit: No Status: Chronic (3) Status post cervical spinal fusion Current Visit: No Status: Acute (4) Pneumonia Current Visit: Yes Status: Acute Qualifiers: Pneumonia type: aspiration pneumonia Aspiration pneumonia type: unspecified Laterality: unspecified laterality Lung location: unspecified part of lung Qualified Code(s): J69.0 - Pneumonitis due to inhalation of food and vomit (5) DVT prophylaxis Current Visit: Yes Status: Acute (6) Abscess or cellulitis of submandibular region Current Visit: Yes Status: Acute (7) Dysphagia Current Visit: Yes Status: Acute Qualifiers: Dysphagia type: pharyngeal phase Qualified Code(s): R13.13 - Dysphagia, pharyngeal phase (8) Hypokalemia Current Visit: Yes Status: Acute (9) Vocal cord paralysis Current Visit: Yes Status: Acute - Time Spent With Patient Total time spent is greater than 50% in coordination of care (as documented) at patient's floor/unit and/or counseling patient: - Constitutional Vitals: Temp Pulse Resp BP Pulse Ox 97.9 F 71 15 155/82 95 09/05/17 12:00 09/05/17 12:00 09/05/17 12:00 09/05/17 12:00 09/05/17 12:00 Internal Medicine: Result - Labs CBC & Chem 7: 09/05/17 04:04 09/05/17 04:04 Labs: Short CBC 09/05/17 Range/Units 04:04 WBC 9.7 (4.3-11.1) K/mcL Hgb 11.6 L (12.9-16.9) g/dL Hct 34.0 L (37.5-50.1) % Plt Count 268 (140-400) K/mcL Neutrophils # 7.9 (1.6-8.9) K/mcL BMP 09/05/17 04:04 Sodium 146 H Potassium 3.3 L Chloride 106 Carbon Dioxide 29 BUN 6 L Creatinine 0.79 Glucose 164 H Calcium 8.6 - ABG Interpretation ABG results: PT/INR, D-dimer D-Dimer 1592 ng/mLFEU (0-500) H 08/31/17 16:35 - Attending Attestation I examined this patient 09/05, and my medical decision-making was reviewed with the Resident Physician. I agree with the documented findings, disposition and treatment plan as described except to the extent set forth below. 62-year-old male with medical history of seizures, hypertension, some possible mental retardation, was admitted for acute respiratory failure with hypoxia secondary to multifocal pneumonia, aspiration pneumonia. The patient is seen and evaluated at the bedside with family. Of note, Neck and soft tissue CT done 09/01 showed parapharygeal phlegmon, abscess indeterminate as contrast was not given He denies new complains He has been NPO due to continuous aspiration Spine surgery eval from 09/03 noted Speech therapy has signed off ENT eval today 09/05: laryngoscopy showed vocal cord paralysis , and pharyngeal edema. The patient and His at the bedside educated extensively on possibility of TPN if dysphagia persists and possible feeding tube while undergoing speech therapy/swallowing exercises. She verbalized understanding Patient was started on TPN 09/04, tolerating Physical examination: He is alert and oriented 3, he has a left lateral neck region redness and swelling(improving), close to the incision site from his previous cervical fusion, he has right middle and lower lobe bronchi, heart sounds S1-S2, abdomen is soft and nontender, no pedal edema. Labs and imaging reviewed: CBC stable, Chem with hypernatremia, acute kidney injury is resolved, mild hypokalemia, CT angiogram negative for pulmonary embolism. Barium swallow noted with multiple micro-aspiration, Neck CT noted Assessment: Acute respiratory failure with hypoxia secondary to aspiration pneumonia, possible healthcare associated pneumonia as patient was recently discharged from this facility and had surgery, acute kidney injury (resolved), L True vocal cord paralysis, Dysphagia secondary to vocal cord paralysis, parapahrygeal phelgmon vs abscess Plan: ENT eval appreciated, GI eval today for PEG tube. Discontinue IVF, continue TPN [employer] Practitioner input appreciated Discontinue Vancomycin Continue Zosyn Continue other management Plan discussed with patient and , agree with plan Rest of details as in the resident physician's documentation
[2017-09-05] MEDS: Dexamethasone 10 MG/ML VIAL IVP SCH ×2 (09:03→16:32)
--- NOTE | 2017-09-05 09:24 | ENT - Consult Note ---
Date of Encounter: 09/05/17 Time of Encounter: 09:22 Assessment and Plan (1) Vocal cord paralysis Current Visit: Yes Status: Acute Left TVC paralysis or paresis based on NPL scope today. Additional posterior pharyngeal edema noted. His first priority is a nutrition plan as he is admitted with PNA concern for aspiration. TPN currently, however he will likely need more prolonged diet plan. I recommend a nasal Dobhoff for tube feeds and meds that he may keep in place for weeks - months until nerve function returns and swelling subsides. Other options include prolonged TPN vs PEG tube. Also recommend IV steroids during admission to improve laryngeal edema. Would need education and home health in order to continue nasal tube feeds at home Continued followup as outpatient for NPL exams to assess resolution of TVC paresis Also recommend close work with [employer] for swallowing evals and exercises. Consider MBS once more stable from edema standpoint Could consider vocal cord injection medialization once healing has occurred and edema improved. (2) Dysphagia Current Visit: Yes Status: Acute Qualifiers: Dysphagia type: pharyngeal phase Qualified Code(s): R13.13 - Dysphagia, pharyngeal phase History of Present Illness Consult date: 09/05/17 Reason for ENT Consult: other (recent ACDF, dysphagia) History of present illness: Pt is a 62 male with recent ACDF surgery approx 7-10 days ago. He was discharged home after normal postoperative course but was readmitted with SOB, dysphagia, and was found to have aspiration PNA which he is currently being treated for. Denies prior issues with dysphagia or hoarseness. Denies other prior neck surgeries or recent URI. He was initiated on TPN for nutrition yesterday with improvement of his overall condition. CT scan showed parapharyngeal swelling and fluid collections - concern for possible abscess. ENT is consulted for laryngeal evaluation. Past Med Surg Social Fam HX - Past Medical History Medical history: arthritis, diabetes, hypertension, seizures Psychiatric history: depression - Past Surgical History Surgical History: orthopedic, other - Social History Smoking Status: Never smoker Smokeless Tobacco Status: No Alcohol use: none Drug use: none - Family History Father Living Status: Age at : 82 Cause of : old age Hx Family Cardiac Disorders: Yes (Hypertension) Hx Family Endocrine Disorder: Yes (Diabetes) Mother Living Status: Age at : 86 Cause of : old age Medications and Allergies Dicyclomine [Bentyl] 20 mg PO TID 06/07/16 [History] Phenytoin ER [Dilantin ER] 200 mg PO BID 06/07/16 [History] Terazosin [Hytrin] 10 mg PO HS 06/07/16 [History] Acebutolol HCl 200 mg PO HS 08/15/16 [History] Amlodipine Besylate/Benazepril [Lotrel 10-40 mg Capsule] 1 tab PO DAILY [History] Doxepin HCl 200 mg PO HS 08/15/16 [History] diazePAM [Valium] 10 mg PO TID PRN 08/15/16 [History] hydroCHLOROthiazide [Hydrochlorothiazide] 25 mg PO DAILY 08/15/16 [History] Escitalopram [Lexapro] 20 mg PO DAILY 08/29/17 [History] hydrOXYzine HCl [Hydroxyzine HCl] 25 - 50 mg PO HS PRN 08/29/17 [History] OxyCODONE Immed Rel [Roxicodone 5 MG] 5 mg PO Q6H PRN 7 Days #28 tablet [Rx] 3 Allergy/AdvReac Type Severity Reaction Status Date / Time bupropion Allergy Seizure Verified 08/29/17 08:52 NSAIDS (Non-Steroidal Allergy Gastrointestinal Verified 08/29/17 08:52 Anti-Inflamma Upset ibuprofen [From Motrin] AdvReac Gastrointestinal Verified 08/29/17 08:52 Upset ENT - ROS All systems PM: reviewed and no additional remarkable complaints except as stated ENT Exam Initial Vital Signs Temp Pulse Resp BP Pulse Ox 98.6 F 86 26 101/65 87 08/31/17 16:31 08/31/17 16:31 08/31/17 16:31 08/31/17 16:31 08/31/17 16:31 - General physical appearance well developed, well nourished, no distress - Eyes normal ocular movement - ENT normal pinna, normal nares, normal mucosa - Neck other (left neck incision with steri strips in place, on drainage or surrounding cellulitis ) - Respiratory normal expansion, normal respiratory effort - Abdomen Abdomen: no distended - Integumentary no rash, no growths - Neurologic CN 2-12 grossly intact, normal coordination, normal sensation - Musculoskeletal normal posture - Psychiatric oriented to time, oriented to person, oriented to place - Additional Findings Procedure: Flexible NPL Preop dx: dysphagia Postop dx: same Complications: none Procedure: The patient was verbally consented and the procedure explained. The nose was sprayed with lidocaine/Afrin mixture. A flexible scope was placed through the right nare and advanced to the nasopharynx then turned inferiorly to the larynx. The scope was then retracted without difficulty. He tolerated this well. Findings: Moderate posterior pharyngeal edema without overlying edema or signs of pharyngeal abscess. The glottis was initially difficult to view due to swelling but this was improved with some positioning changes. Once in view, the left TVC was immobile with overlying erythema. The right TVC was fully mobile for adduction and abduction. Otherwise, diffuse edema of suprglottic structures noted but airway was patent and stable. Exam Initial Vital Signs Temp Pulse Resp BP Pulse Ox 98.6 F 86 26 101/65 87 08/31/17 16:31 08/31/17 16:31 08/31/17 16:31 08/31/17 16:31 08/31/17 16:31 Results - Labs 09/05/17 04:04 09/05/17 04:04 Abnormal lab results RBC 3.49 M/mcL (4.19-5.50) L 09/05/17 04:04 Hgb 11.6 g/dL (12.9-16.9) L 09/05/17 04:04 Hct 34.0 % (37.5-50.1) L 09/05/17 04:04 D-Dimer 1592 ng/mLFEU (0-500) H 08/31/17 16:35 Sodium 146 mEq/L (136-145) H 09/05/17 04:04 Potassium 3.3 mEq/L (3.5-5.1) L 09/05/17 04:04 BUN 6 mg/dL (8-23) L 09/05/17 04:04 Glucose 164 mg/dL (70-105) H 09/05/17 04:04 POC Glucose 119 mg/dL (70-99) H 09/04/17 11:59 Calculated Osmolality 303 (280-300) H 09/05/17 04:04 Phosphorus 2.3 mg/dL (2.7-4.5) L 09/05/17 04:04 B-Natriuretic Peptide 170 pg/mL (Less than 100) H 08/31/17 16:35 Triglycerides 169 mg/dL (< 150) H 09/05/17 04:04 Diabetes panel 09/05/17 09/05/17 Range/Units 04:04 04:04 Sodium 146 H (136-145) mEq/L Potassium 3.3 L (3.5-5.1) mEq/L Chloride 106 (98-107) mEq/L Carbon Dioxide 29 (23-29) mEq/L BUN 6 L (8-23) mg/dL Creatinine 0.79 (0.70-1.30) mg/dL Glucose 164 H (70-105) mg/dL Calcium 8.6 (8.6-10.3) mg/dL Triglycerides 169 H (< 150) mg/dL Calcium panel 09/05/17 09/05/17 Range/Units 04:04 04:04 Calcium 8.6 (8.6-10.3) mg/dL Phosphorus 2.3 L (2.7-4.5) mg/dL Pituitary panel 09/05/17 Range/Units 04:04 Sodium 146 H (136-145) mEq/L Potassium 3.3 L (3.5-5.1) mEq/L Chloride 106 (98-107) mEq/L Carbon Dioxide 29 (23-29) mEq/L BUN 6 L (8-23) mg/dL Creatinine 0.79 (0.70-1.30) mg/dL Glucose 164 H (70-105) mg/dL Calcium 8.6 (8.6-10.3) mg/dL Adrenal panel 09/05/17 Range/Units 04:04 Sodium 146 H (136-145) mEq/L Potassium 3.3 L (3.5-5.1) mEq/L Chloride 106 (98-107) mEq/L Carbon Dioxide 29 (23-29) mEq/L BUN 6 L (8-23) mg/dL Creatinine 0.79 (0.70-1.30) mg/dL Glucose 164 H (70-105) mg/dL Calcium 8.6 (8.6-10.3) mg/dL All other labs normal. Consult Discharge Plan - Plan Referrals: Dieter Leonardo DO [Primary Care Provider] -
[2017-09-05] MEDS: diazePAM 10 MG/2 ML SYRINGE IVP SCH ×3 (09:28→21:02)
[2017-09-05] MEDS ORDERED: Potassium Phosphate 44 MEQ in 0.9 % Sodium Chloride 250 ML IVPB ONE (09:52)
--- NOTE | 2017-09-05 11:13 | Gastroenterology Consult Note ---
Date of Encounter: 09/05/17 Time of Encounter: 10:40 - Assessment and plan (1) Dysphagia Current Visit: Yes Status: Acute Assessment and plan: Plan for EGD today with PEG tube insertion. Keep patient NPO. If dysphagia resolves, PEG tube could be removed. Qualifiers: Dysphagia type: pharyngeal phase Qualified Code(s): R13.13 - Dysphagia, pharyngeal phase - Time Spent With Patient Total time spent is greater than 50% in coordination of care (as documented) at patient's floor/unit and/or counseling patient: GI History of Present Illness - Data of Consult Patient: new to practice Consult date: 09/05/17 Requesting Physician: Rigoberto Davis MD - Consult Narrative Reason for consult: Enteral Feedings History of present illness: Mr. Mcgarry is a 62 year old male with PMHx of athritis, DM, HTN, seizures who recently underwent a cervical spine surgery by Dr. Antunez. Was being seen by home health nurse and noted to be hypoxic in the 80s. Dr. Antunez was contacted and recommended going to the ED. In the ED was found to be hypotensive and hypoxic and work up showed pneumonia. He denies fever, chills, chest pain, abdominal pain, nausea, vomiting, diarrhea, constipation. CT neck done 09/01 showed parapharygeal phlegmon, abscess indeterminate as contrast was not given. He developed difficulty swallowing following his recent spial surgery and has aspirated on pureed diet. We have been consulted for PEG tube placement due to his dysphagia. He states it hase been 6-7 days since he has eaten. Procedures: Colonoscopy 09/07/2011 Dr. López: Internal hemorrhoids, diverticulosis , two 10mm tubular adenoma rectum and 3mm tubular adenoma in ascending colon. NSAIDs: None Anticoagulation: None Past Med Surg Social Fam HX - Past Medical History Medical history: arthritis, diabetes, hypertension, seizures Psychiatric history: depression - Past Surgical History Surgical History: orthopedic, other - Social History Smoking Status: Never smoker Smokeless Tobacco Status: No Alcohol use: none Drug use: none - Family History Father Living Status: Age at : 82 Cause of : old age Hx Family Cardiac Disorders: Yes (Hypertension) Hx Family Endocrine Disorder: Yes (Diabetes) Mother Living Status: Age at : 86 Cause of : old age - Gastrointestinal Gastrointestinal: Present: as per HPI - Constitutional Constitutional: as per HPI - EENT Eyes: as per HPI Ears: Present: as per HPI Nose, mouth and throat: Present: as per HPI - Cardiovascular Cardiovascular ROS: Present: as per HPI - Respiratory Respiratory IM: Present: as per HPI - Genitourinary Genitourinary: Absent: change in color, Urinary frequency - Neurological ROS Neurological GI: Present: as per HPI - Hematologic/Lymphatic Hematologic/Lymphatic pediatric: Present: as per HPI - Musculoskeletal Musculoskeletal ROS GI: Present: as per HPI - Integumentary Integumentary GI: Present: as per HPI - Psychiatric ROS Psychiatric GI: Present: as per HPI - Endocrine Endocrine IM: Present: as per HPI - Constitutional Vitals: Temp Pulse Resp BP Pulse Ox 97.9 F 70 16 135/84 91 09/05/17 07:05 09/05/17 07:05 09/05/17 10:33 09/05/17 07:05 09/05/17 10:33 General appearance: Present: cooperative, A&O X 3, no acute distress, answers questions appropriately - Head Head exam: Present: atraumatic, normocephalic - Eye Eye exam: Present: normal appearance, sclera anicteric - ENT ENT exam: Present: mucous membranes dry Additional comments: Left neck surgical incision site with redness and edema - Neck Neck exam general surgery: Present: normal inspection, trachea midline - Respiratory Respiratory exam: Present: CTAB. Absent: rales, rhonchi - Cardiovascular Cardiovascular exam: Present: RRR, +S1, +S2 - GI/Abdominal GI/Abdominal exam: Present: soft, no peritoneal signs. Absent: distended, firm , guarding, tenderness - Rectal Rectal exam: Present: deferred - Extremities Exam Extremities exam: Present: warm - Neurological Exam Neurological exam: Present: no focal deficits - Psychiatric Psychiatric exam: Present: normal affect, normal mood - Skin Skin exam: Present: dry, intact, normal color, warm Results - Labs CBC & Chem 7: 09/05/17 04:04 09/05/17 04:04 Labs: Last Result Calcium 8.6 mg/dL (8.6-10.3) 09/05/17 04:04 Troponin I < 0.03 ng/mL (< 0.04) 08/31/17 16:35 Triglycerides 169 mg/dL (< 150) H 09/05/17 04:04 Entire Visit Hgb 11.6 g/dL (12.9-16.9) L 09/05/17 04:04 Hct 34.0 % (37.5-50.1) L 09/05/17 04:04 - ABG ABG results: PT/INR, D-dimer D-Dimer 1592 ng/mLFEU (0-500) H 08/31/17 16:35 Consult Discharge Plan - Plan Referrals: Dieter Leonardo DO [Primary Care Provider] -
[2017-09-05] MEDS: MORPHINE SUL Oral CONC 10 MG/0.5 ML ORAL.SYG SL PRN (12:05)
[2017-09-05] MEDS ORDERED: Clinimix E 5%-15% SOLUTION 2,000 ML with MVI, adult with vitamin K 10 ML IVC SCH (17:00)
[2017-09-05 21:38] LABS: BUN/Creatinine Ratio 9 (6-26); Blood Urea Nitrogen 12 mg/dL (8-23); Calcium 8.7 mg/dL (8.6-10.3); Carbon Dioxide 30 mEq/L (23-29); Chloride 105 mEq/L (98-107); Glucose 187 mg/dL (70-105); Osmolality,Calculated 301 (280-300); Potassium 3.3 mEq/L (3.5-5.1); Sodium 143 mEq/L (136-145); eGFR For African Americans > 60 (> 60); eGFR For Non-African Americans 55 (> 60)
[2017-09-06] MEDS: Dexamethasone 10 MG/ML VIAL IVP SCH ×3 (00:13→18:21)
[2017-09-06] MEDS: OXYCODONE Oral CONC 10 MG/0.5 ML ORAL.SYG SL SCH ×6 (00:13→20:53)
[2017-09-06] MEDS: *HR* Heparin 5,000 UNIT/ML VIAL SQ SCH ×3 (03:39→21:46)
[2017-09-06] MEDS: Ipratropium/Albuterol Neb 3 ML IH SCH ×4 (03:40→21:45)
[2017-09-06] MEDS: Piperacillin/Tazobactam 3.375 GM in 0.9 % Sodium Chloride Mini Bag 100 ML IVPB SCH ×3 (03:44→18:12)
[2017-09-06 04:10] LABS: Basophils % 0.3 %; Hematocrit 33.6 % (37.5-50.1); Hemoglobin 11.9 g/dL (12.9-16.9); Immature Granulocytes % 2.1 % (0-4); Lymphocytes # 0.8 K/mcL (0.6-4.6); Lymphocytes % 6.9 %; Mean Corpuscular HGB Conc 35.4 g/dL (31.6-35.5); Mean Corpuscular Hemoglobin 34.8 pg (28.0-33.3); Mean Corpuscular Volume 98.2 fL (83.0-100.0); Mean Platelet Volume 9.6 fL (9.4-12.4); Monocytes # 0.8 K/mcL (0.0-1.3); Monocytes % 6.6 %; Neutrophils # 9.8 K/mcL (1.6-8.9); Platelet Count 300 K/mcL (140-400); Red Blood Count 3.42 M/mcL (4.19-5.50); Red Cell Distribution Width 12.7 % (11.5-14.5); Segmented Neutrophils % 84.1 %
[2017-09-06 04:27] LABS: Calcium 8.7 mg/dL (8.6-10.3); Magnesium 2.1 mg/dL (1.6-2.6); Phosphorous 4.3 mg/dL (2.7-4.5); Potassium 3.5 mEq/L (3.5-5.1)
[2017-09-06] MEDS ORDERED: 0.9 % Sodium Chloride 1,000 ML IVC ONE (07:56)
--- NOTE | 2017-09-06 08:45 | ENT - Progress Note ---
Date of Encounter: 09/06/17 Time of Encounter: 08:43 - Assessment and Plan (1) Vocal cord paralysis Current Visit: Yes Status: Acute Left TVC paralysis or paresis based on NPL scope yesterday. Improving from aspiration PNA standpoint. Can wean steroids. 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 Will need education via nutrition about tube feeds and administration Recommend outpatient follow up with me in 4-6 weeks. Will re-eval NPL scope to assess for cord mobility and order updated MBS based on that exam Will be hopeful for TVC function return but can discuss medialization procedures as needed if necessary. ENT available as needed for the rest of this admission, please call with questions or re-consult. (2) Dysphagia Current Visit: Yes Status: Acute Qualifiers: Dysphagia type: pharyngeal phase Qualified Code(s): R13.13 - Dysphagia, pharyngeal phase Subjective Narrative: Pt feeling better today with improved nutrition, fluids, abx, and steroids for pharyngeal swelling. He feels his neck fullness is improved. Voice is similar. He is appreciative for oral ice chips and is happy with the plan for PEG today. Objective Initial Vital Signs Temp Pulse Resp BP Pulse Ox 98.6 F 86 26 101/65 87 08/31/17 16:31 08/31/17 16:31 08/31/17 16:31 08/31/17 16:31 08/31/17 16:31 - General physical appearance well developed, well nourished, no distress - ENT normal pinna, normal nares, Other (oral exam shows better visualization of posterior pharyngeal wall and improved swelling, though some still present along the left wall.) - Neck other (neck incision with bandage in place, c/d/i) - Respiratory normal expansion, normal respiratory effort - Labs 09/06/17 03:54 09/06/17 03:54 Diabetes panel 09/05/17 09/06/17 Range/Units 21:06 03:54 Sodium 143 144 (136-145) mEq/L Potassium 3.3 L 3.5 (3.5-5.1) mEq/L Chloride 105 105 (98-107) mEq/L Carbon Dioxide 30 H 28 (23-29) mEq/L BUN 12 15 (8-23) mg/dL Creatinine 1.33 H 1.49 H (0.70-1.30) mg/dL Glucose 187 H 182 H (70-105) mg/dL Calcium 8.7 8.7 (8.6-10.3) mg/dL Calcium panel 09/05/17 09/06/17 09/06/17 Range/Units 21:06 03:54 03:54 Calcium 8.7 8.7 (8.6-10.3) mg/dL Phosphorus 4.3 (2.7-4.5) mg/dL Pituitary panel 09/05/17 09/06/17 Range/Units 21:06 03:54 Sodium 143 144 (136-145) mEq/L Potassium 3.3 L 3.5 (3.5-5.1) mEq/L Chloride 105 105 (98-107) mEq/L Carbon Dioxide 30 H 28 (23-29) mEq/L BUN 12 15 (8-23) mg/dL Creatinine 1.33 H 1.49 H (0.70-1.30) mg/dL Glucose 187 H 182 H (70-105) mg/dL Calcium 8.7 8.7 (8.6-10.3) mg/dL Adrenal panel 09/05/17 09/06/17 Range/Units 21:06 03:54 Sodium 143 144 (136-145) mEq/L Potassium 3.3 L 3.5 (3.5-5.1) mEq/L Chloride 105 105 (98-107) mEq/L Carbon Dioxide 30 H 28 (23-29) mEq/L BUN 12 15 (8-23) mg/dL Creatinine 1.33 H 1.49 H (0.70-1.30) mg/dL Glucose 187 H 182 H (70-105) mg/dL Calcium 8.7 8.7 (8.6-10.3) mg/dL Consult Discharge Plan - Plan Referrals: Dieter Leonardo DO [Primary Care Provider] -
[2017-09-06] MEDS: diazePAM 10 MG/2 ML SYRINGE IVP SCH ×3 (09:02→20:53)
[2017-09-06 09:59] LABS: Bilirubin,Urine Negative (Negative); Blood,Urine Negative (Negative); Clarity,Urine Clear (Clear); Color,Urine Yellow (Yellow); Glucose,Urine (UA) Normal (Normal); Ketones,Urine Negative (Negative); Leukocyte Esterase,Urine Negative (Negative); Nitrite,Urine Negative (Negative); Protein,Urine 30 mg/dL (Neg-Trace); Specific Gravity,Urine 1.018 (1.010-1.025); Urobilinogen,Urine Normal (Normal)
[2017-09-06 10:03] LABS: Bacteria,Urine None Seen per hpf (None-Few); Hyaline Casts,Urine None Seen per lpf (None-Few); Squamous Epithelial Cell,Urine Few per lpf (None-Few); WBC,Urine 0-3 per hpf (0-3)
[2017-09-06 10:16] LABS: Potassium,Urine 28.5 mEq/L; Sodium, Urine 95.7 mEq/L
--- NOTE | 2017-09-06 13:04 | Anesthesia Evaluation PreOp ---
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, Other (s/p ACDF C4-7 for neurologic compromise of RUE, now with left true vocal cord paralysis and dysphagia) Other Medical History: Denies Any Significant HX Anesthesia History: No Prior Anesthetic Complications, Past Anesthesia (ACDF C4- 7 on 09-15, I&D rectal abcess, ulnar nerve release) Alcohol Use: none Drug use: none Medications and Allergies Dicyclomine [Bentyl] 20 mg PO TID 06/07/16 [History] Phenytoin ER [Dilantin ER] 200 mg PO BID 06/07/16 [History] Terazosin [Hytrin] 10 mg PO HS 06/07/16 [History] Acebutolol HCl 200 mg PO HS 08/15/16 [History] Amlodipine Besylate/Benazepril [Lotrel 10-40 mg Capsule] 1 tab PO DAILY [History] Doxepin HCl 200 mg PO HS 08/15/16 [History] diazePAM [Valium] 10 mg PO TID PRN 08/15/16 [History] hydroCHLOROthiazide [Hydrochlorothiazide] 25 mg PO DAILY 08/15/16 [History] Escitalopram [Lexapro] 20 mg PO DAILY 08/29/17 [History] hydrOXYzine HCl [Hydroxyzine HCl] 25 - 50 mg PO HS PRN 08/29/17 [History] OxyCODONE Immed Rel [Roxicodone 5 MG] 5 mg PO Q6H PRN 7 Days #28 tablet [Rx] 3 Allergy/AdvReac Type Severity Reaction Status Date / Time bupropion Allergy Seizure Verified 08/29/17 08:52 NSAIDS (Non-Steroidal Allergy Gastrointestinal Verified 08/29/17 08:52 Anti-Inflamma Upset ibuprofen [From Motrin] AdvReac Gastrointestinal Verified 08/29/17 08:52 Upset - Meds/Allergy Pre-op Review Medications Reviewed: Yes Allergies Reviewed: Yes Beta Blockers on Current Med List: No Anesthesia Results - Labs 09/06/17 03:54 09/06/17 03:54 Anesthesia Exam Selected Entries 09/06/17 11:14 Temperature 98.1 F Pulse Rate 88 Respiratory Rate 16 Blood Pressure 179/89 O2 Sat by Pulse Oximetry 93 Oxygen Flow Rate (LPM) 3 Weight: 87kg NPO (# of Hours): 8 - HEENT Pupil (Motor): EOMI Mallampati: III Teeth: Edentulous Oral Opening: Greater than 3 - POWDER LOADER LOC: Oriented POWDER LOADER Motor: Normal RUE, Normal LUE, Normal RLE, Normal LLE, Normal Face POWDER LOADER Sensory: Normal: RUE, LUE, RLE, LLE, Face - Cardiac Rhythm: Regular Murmur: None - Pulmonary Breath Sounds: bilateral Clear Respiratory Effort: Symmetrical Anesthesia Assess/Plan ASA Score: 3 Modified Maribel Scale for Level of Consciousness: Cooperative, oriented, and tranquil Anesthetic Plan: MAC Monitoring Plan: Standard Monitors Recovery Plan: Other (agrees to MAC)
[2017-09-06] MEDS ORDERED: Propofol 500 MG/50 ML INFUS..BTL ONE (13:25)
[2017-09-06] MEDS ORDERED: Lidocaine -MPF 2% 2 ML VIAL ONE ×3 (13:25→14:16)
[2017-09-06] MEDS ORDERED: *HR* Propofol 200 MG/20 ML VIAL IVP ONE ×3 (13:26→14:31)
[2017-09-06] MEDS ORDERED: *HR* PHENYLEPHRINE 1,000 MCG/10 ML SYRINGE IVP ONE ×2 (14:22→14:53)
--- NOTE | 2017-09-06 14:27 | Internal Med Progress Note ---
<Rigoberto Davis T - Last Filed: 09/06/17 16:29> Date of Encounter: 09/06/17 - Assessment and plan (1) HTN (hypertension) Current Visit: No Status: Chronic (2) History of seizure Current Visit: No Status: Chronic (3) Status post cervical spinal fusion Current Visit: No Status: Acute (4) Pneumonia Current Visit: Yes Status: Acute (5) DVT prophylaxis Current Visit: Yes Status: Acute (6) Abscess or cellulitis of submandibular region Current Visit: Yes Status: Acute (7) Dysphagia Current Visit: Yes Status: Acute (8) Hypokalemia Current Visit: Yes Status: Acute (9) Vocal cord paralysis Current Visit: Yes Status: Acute - Time Spent With Patient Total time spent is greater than 50% in coordination of care (as documented) at patient's floor/unit and/or counseling patient: - Constitutional Vitals: Temp Pulse Resp BP Pulse Ox 97.6 F 86 16 145/94 96 09/06/17 13:58 09/06/17 13:58 09/06/17 13:58 09/06/17 13:58 09/06/17 13:58 Internal Medicine: Result - Labs CBC & Chem 7: 09/06/17 03:54 09/06/17 03:54 Labs: Short CBC 09/06/17 Range/Units 03:54 WBC 11.6 H (4.3-11.1) K/mcL Hgb 11.9 L (12.9-16.9) g/dL Hct 33.6 L (37.5-50.1) % Plt Count 300 (140-400) K/mcL Neutrophils # 9.8 H (1.6-8.9) K/mcL BMP 09/05/17 09/06/17 21:06 03:54 Sodium 143 144 Potassium 3.3 L 3.5 Chloride 105 105 Carbon Dioxide 30 H 28 BUN 12 15 Creatinine 1.33 H 1.49 H Glucose 187 H 182 H Calcium 8.7 8.7 Urine 09/06/17 Range/Units 09:30 Urine Color Yellow (Yellow) Urine Clarity Clear (Clear) Urine pH 6.0 (5.0-8.0) pH Units Ur Specific [place] 1.018 (1.010-1.025) Urine Protein 30 H (Neg-Trace) mg/dL Urine Glucose (UA) Normal (Normal) mg/dL - ABG Interpretation ABG results: PT/INR, D-dimer D-Dimer 1592 ng/mLFEU (0-500) H 08/31/17 16:35 Consult Discharge Plan - Plan Referrals: Dieter Leonardo DO [Primary Care Provider] - - Attending Attestation I examined this patient 09/06, and my medical decision-making was reviewed with the Resident Physician. I agree with the documented findings, disposition and treatment plan as described except to the extent set forth below. 62-year-old male with medical history of seizures, hypertension, some possible mental retardation, was admitted for acute respiratory failure with hypoxia secondary to multifocal pneumonia, aspiration pneumonia. The patient is seen and evaluated at the bedside with family. Of note, Neck and soft tissue CT done 09/01 showed parapharygeal phlegmon, abscess indeterminate as contrast was not given He was seen and evaluated at the bedside in very high spirits, with no new complains. Awaiting PEG tube placement He has been NPO due to continuous aspiration Spine surgery eval from 09/03 noted Speech therapy has signed off ENT eval 09/05: laryngoscopy showed vocal cord paralysis , and pharyngeal edema. The patient and His at the bedside educated extensively on possibility of TPN if dysphagia persists and possible feeding tube while undergoing speech therapy/swallowing exercises. She verbalized understanding Patient was started on TPN 09/04, tolerating Physical examination: He is alert and oriented 3, he has a left lateral neck region redness and swelling(improving), close to the incision site from his previous cervical fusion, he has right middle and lower lobe bronchi, heart sounds S1-S2, abdomen is soft and nontender, no pedal edema. Labs and imaging reviewed: CBC stable, Chem with hypernatremia, acute kidney injury , mild hypokalemia, CT angiogram negative for pulmonary embolism. Barium swallow noted with multiple micro-aspiration, Neck CT noted Assessment: Acute respiratory failure with hypoxia secondary to aspiration pneumonia, possible healthcare associated pneumonia as patient was recently discharged from this facility and had surgery, acute kidney injury (resolved), L True vocal cord paralysis, Dysphagia secondary to vocal cord paralysis, parapahrygeal phelgmon vs abscess Plan: PEG tube today Resume IVF for KRISTA (Fena suggestive of intrinsic, suspect due to Vanco) Continue TPN Continue Decadron Continue Zosyn Continue other management Plan discussed with patient and , agree with plan Rest of details as in the resident physician's documentation <Jules Whitlock - Last Filed: 09/06/17 17:32> Date of Encounter: 09/06/17 Time of Encounter: 08:25 - Assessment and plan (1) Abscess or cellulitis of submandibular region Current Visit: Yes Status: Acute Assessment and plan: Patient has worsening left submandibular swelling near incision site s/p cervical decompression on 08/29/17. CT neck w/o contrast demonstrates scattered opacities in the included lung. enlarged lymph node adjacent to left submandibular gland. soft tissue density in left parapharyngeal space, small phlegmon vs abscess. PICC line inserted, begin TPN nutrition. Will require PEG tube ENT did see patient, is not suspicious of abscess or substantial fluid pocket at this time Started IV 10 mg Decadron every 8 hours per ENT evaluation for inflammation which will end today He will require ENT follow-up in 4-6 weeks (2) Vocal cord paralysis Current Visit: Yes Status: Acute Assessment and plan: Acute paralysis of left vocal cord per ENT Likely secondary to surgical complications including nerve damage as possible etiology We will be giving the patient IV Decadron to decrease inflammation for total of 6 doses The patient will require speech therapy and long-term treatment with ENT when tolerated Maintain nothing by mouth diet to prevent aspiration (3) Pneumonia Current Visit: Yes Status: Acute Assessment and plan: Pneumonia 2/2 aspiration vs. healthcare associated. Patient failed swallow test. Unable to tolerate solids or liquids. Blood cultures negative x2 Sputum culture with many Gram + cocci and few gram negative rods. Possible contamination. Repeat sputum culture pending. Continue Zosyn day 11/07 Qualifiers: Pneumonia type: aspiration pneumonia Aspiration pneumonia type: unspecified Laterality: unspecified laterality Lung location: unspecified part of lung Qualified Code(s): J69.0 - Pneumonitis due to inhalation of food and vomit (4) Status post cervical spinal fusion Current Visit: Yes Status: Acute Assessment and plan: Continue pain control. Patient is status post anterior cervical decompression and fusion of C4-C7 (5) Dysphagia Current Visit: Yes Status: Acute Assessment and plan: Likely secondary to post-surgical incision site infection vs phlegmon vs nerve damage. Treat per above. Barium swallow noted with multiple micro-aspiration. We did start TPN yesterday after insertion of PICC line Reconsult speech therapy following improvement of neck soft tissue edema Continue to replace electrolytes as needed PEG tube per GI today Qualifiers: Dysphagia type: pharyngeal phase Qualified Code(s): R13.13 - Dysphagia, pharyngeal phase (6) HTN (hypertension) Current Visit: Yes Status: Chronic Assessment and plan: Stable. Unable to tolerate PO intake. Continue to hold antihypertensives. Qualifiers: Hypertension type: essential hypertension Qualified Code(s): I10 - Essential (primary) hypertension (7) History of seizure Current Visit: Yes Status: Chronic Assessment and plan: Continue home antiepileptics. (8) Hypokalemia Current Visit: Yes Status: Acute Assessment and plan: Received K+ infusion Monitor with AM labs (9) DVT prophylaxis Current Visit: Yes Status: Acute Assessment and plan: Heparin subcutaneous - Time Spent With Patient Total time spent is greater than 50% in coordination of care (as documented) at patient's floor/unit and/or counseling patient: - Subjective Interval history: Patient is seen and examined at bedside. The patient says that he is feeling significantly better than he was previously. He did undergo insertion of PICC line with initiation of TPN. 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 - Constitutional Vitals: Temp Pulse Resp BP Pulse Ox 97.6 F 86 16 145/94 96 09/06/17 13:58 09/06/17 13:58 09/06/17 13:58 09/06/17 13:58 09/06/17 13:58 General appearance: Present: A&O X 3 Exam: Gen: Vitals noted. Appears comfortable in bed, NAD HEENT: PERRL, oropharynx clear on visual inspection, Normocephalic, atraumatic Neck: There is surgical Steri-Strips present on the left anterior neck along with significant soft tissue edema and soreness to palpation Cardiac: RRR, no murmur, +S1/S2 Pulmonary: Lungs remain coarse with some rhonchi b/l, however significantly improved from prior. Abdomen: soft, nontender, BS noted, no guarding MSK: ROM intact, no joint swelling noted Extremities: no BLE edema, nontender calf, no cyanosis or clubbing Neuro: A&Ox3, moves all extremities, no focal deficits Psych: Appropriate mood and behavior Internal Medicine: Result - Labs CBC & Chem 7: 09/06/17 03:54 09/06/17 03:54 Labs: Short CBC 09/06/17 Range/Units 03:54 WBC 11.6 H (4.3-11.1) K/mcL Hgb 11.9 L (12.9-16.9) g/dL Hct 33.6 L (37.5-50.1) % Plt Count 300 (140-400) K/mcL Neutrophils # 9.8 H (1.6-8.9) K/mcL BMP 09/05/17 09/06/17 21:06 03:54 Sodium 143 144 Potassium 3.3 L 3.5 Chloride 105 105 Carbon Dioxide 30 H 28 BUN 12 15 Creatinine 1.33 H 1.49 H Glucose 187 H 182 H Calcium 8.7 8.7 Urine 09/06/17 Range/Units 09:30 Urine Color Yellow (Yellow) Urine Clarity Clear (Clear) Urine pH 6.0 (5.0-8.0) pH Units Ur Specific [place] 1.018 (1.010-1.025) Urine Protein 30 H (Neg-Trace) mg/dL Urine Glucose (UA) Normal (Normal) mg/dL - ABG Interpretation ABG results: PT/INR, D-dimer D-Dimer 1592 ng/mLFEU (0-500) H 08/31/17 16:35
[2017-09-06] MEDS ORDERED: Ondansetron 4 MG/2 ML VIAL ONE (14:28)
[2017-09-06] MEDS ORDERED: Dexamethasone 4 MG/ML VIAL ONE (14:28)
[2017-09-06] MEDS ORDERED: Tetracaine/Benzocaine/Butamben 200MG/SPRAY (100SPY/BOT) MM ONE (14:35)
[2017-09-06] MEDS ORDERED: Simethicone 40 MG/0.6 ML MLS IR ONE (14:35)
[2017-09-06] MEDS ORDERED: *HR* Midazolam HCl 2 MG/2 ML VIAL ONE (14:48)
--- NOTE | 2017-09-06 16:00 | Pulmonology Consult Note ---
<GianasilviaPat crespo M - Last Filed: 09/06/17 16:35> Date of Encounter: 09/06/17 Medications and Allergies Dicyclomine [Bentyl] 20 mg PO TID 06/07/16 [History] Phenytoin ER [Dilantin ER] 200 mg PO BID 06/07/16 [History] Terazosin [Hytrin] 10 mg PO HS 06/07/16 [History] Acebutolol HCl 200 mg PO HS 08/15/16 [History] Amlodipine Besylate/Benazepril [Lotrel 10-40 mg Capsule] 1 tab PO DAILY [History] Doxepin HCl 200 mg PO HS 08/15/16 [History] diazePAM [Valium] 10 mg PO TID PRN 08/15/16 [History] hydroCHLOROthiazide [Hydrochlorothiazide] 25 mg PO DAILY 08/15/16 [History] Escitalopram [Lexapro] 20 mg PO DAILY 08/29/17 [History] hydrOXYzine HCl [Hydroxyzine HCl] 25 - 50 mg PO HS PRN 08/29/17 [History] OxyCODONE Immed Rel [Roxicodone 5 MG] 5 mg PO Q6H PRN 7 Days #28 tablet [Rx] 3 Allergy/AdvReac Type Severity Reaction Status Date / Time bupropion Allergy Seizure Verified 08/29/17 08:52 NSAIDS (Non-Steroidal Allergy Gastrointestinal Verified 08/29/17 08:52 Anti-Inflamma Upset ibuprofen [From Motrin] AdvReac Gastrointestinal Verified 08/29/17 08:52 Upset All Systems: The remainder of the systems were reviewed and are negative Physical Examination Vital Signs: Vital Signs, Last 4 Hours Temp Pulse Resp BP Pulse Ox 09/06/17 13:58 97.6 F 86 16 145/94 96 Results - Laboratory Findings CBC and BMP: 09/06/17 03:54 09/06/17 03:54 PT/INR, D-dimer D-Dimer 1592 ng/mLFEU (0-500) H 08/31/17 16:35 Abnormal lab findings: Abnormal lab results WBC 11.6 K/mcL (4.3-11.1) H 09/06/17 03:54 RBC 3.42 M/mcL (4.19-5.50) L 09/06/17 03:54 Hgb 11.9 g/dL (12.9-16.9) L 09/06/17 03:54 Hct 33.6 % (37.5-50.1) L 09/06/17 03:54 MCH 34.8 pg (28.0-33.3) H 09/06/17 03:54 Neutrophils # 9.8 K/mcL (1.6-8.9) H 09/06/17 03:54 D-Dimer 1592 ng/mLFEU (0-500) H 08/31/17 16:35 Creatinine 1.49 mg/dL (0.70-1.30) H 09/06/17 03:54 Est GFR ( Amer) 58 (> 60) L 09/06/17 03:54 Est GFR (Non-Af Amer) 48 (> 60) L 09/06/17 03:54 Glucose 182 mg/dL (70-105) H 09/06/17 03:54 POC Glucose 147 mg/dL (70-99) H 09/06/17 11:18 Calculated Osmolality 303 (280-300) H 09/06/17 03:54 B-Natriuretic Peptide 170 pg/mL (Less than 100) H 08/31/17 16:35 Triglycerides 169 mg/dL (< 150) H 09/05/17 04:04 Urine Protein 30 mg/dL (Neg-Trace) H 09/06/17 09:30 Urine Microscopic RBC 5-15 per hpf (0-3) H 09/06/17 09:30 - Clinical Findings Intake & Output: Intake & Output 09/06/17 09/06/17 09/06/17 07:59 15:59 23:59 Intake Total 200 / 200 Output Total 925 / 925 725 / 725 Balance -725 / -725 -725 / -725 Weight 87.3 kg Consult Discharge Plan - Plan Referrals: Dieter Leonardo DO [Primary Care Provider] - - Attending Attestation I examined this patient and my medical decision-making was reviewed with the Resident Physician. I agree with the documented findings, disposition and treatment plan as described except to the extent set forth below. Patient seen and examined. Labs, radiology, chart personally reviewed. Agree with resident's history and physical, assessment, plan with following comments: [employer]URER: Patient is agitated and starts sedation. Pulmonary: Acceptable oxygenation and ventilation, however due to his agitation he is not synchronized with the ventilator and I am hoping with the sedation and will be better and then will have a follow-up ABG. Chest x-ray ordered and I am hoping in next 24 hours depending on whether he would have procedure or not to be able to extubate him. Bronchodilators and short course of systemic steroid. Cardiovascular: stable GI: PEG tube placement to be deferred to gastroenterology Heme: DVT prophylaxis per routine ID: Continue antibiotics and plan to de-escalation Renal; urine out put and renal funtion reviewed Endorcine: blood glucose is monitored Lines: all lines checked and no evidence of infections Skin: skin care to prevent pressure ulcers per nursing routine care <Paxton Stinson - Last Filed: 09/06/17 17:19> Date of Encounter: 09/06/17 Time of Encounter: 16:00 Assessment and Plan (1) Acute respiratory failure Current Visit: Yes Status: Acute - Acute respiratory failure following PEG tube attempted placement this afternoon - Likely secondary to bronchospasm with underlying aspiration pneumonia - Completed 5 day course of vancomycin. Day #7 of Zosyn -ABG shows acute hypercapnic respiratory acidosis - CTA on admission showing multifocal process suggestive of possible aspiration versus multifocal pneumonia - Repeat chest x-ray pending for endotracheal tube placement - Blood and sputum cultures negative for growth, Legionella and sharp pneumonia antigen negative - Mild WBC elevation of 11.6, afebrile during admission - No reported respiratory history, no echocardiogram on record Plan - Continue supportive care with ventilator management - Sedation with propofol and fentanyl - Continue Zosyn day #7 - DuoNeb's, albuterol - Already receiving Decadron next swelling Qualifiers: Respiratory failure complication: hypoxia and hypercapnia Qualified Code(s) : J96.01 - Acute respiratory failure with hypoxia; J96.02 - Acute respiratory failure with hypercapnia; J96.02 - Acute respiratory failure with hypercapnia; J96.02 - Acute respiratory failure with hypercapnia (2) Aspiration pneumonia Current Visit: Yes Status: Acute - As above for acute respiratory failure with hypoxia and hypercapnia - Further management as above Qualifiers: Aspiration pneumonia type: unspecified Laterality: unspecified laterality Lung location: unspecified part of lung Qualified Code(s): J69.0 - Pneumonitis due to inhalation of food and vomit (3) KRISTA (acute kidney injury) Current Visit: Yes Status: Acute - BUN/creatinine 15/1.49, creatinine increasing - Possibly secondary to no oral intake versus medications - If he continues to increase we will consider gentle fluid hydration (4) Hypoxia Current Visit: Yes Status: Acute As above for acute respiratory failure (5) Vocal cord paralysis Current Visit: Yes Status: Acute - Ear nose and throat doctors consulted and following - Possibly secondary to spinal cord fusion - Likely contributed to aspiration with pneumonia - Continue Decadron, swallow therapy when able, speech therapy - We will need additional barium swallow and testing when able (6) Status post cervical spinal fusion Current Visit: Yes Status: Acute - Further management per orthopedics - C-collar in place (7) DMII (diabetes mellitus, type 2) Current Visit: No Status: Ruled-out - Blood sugars have been moderately well controlled ranging from 90s to 180s - Not requiring insulin coverage - Likely elevated secondary to steroid use - A1C of 5.2% in July 2016 - We will obtain a more recent number Qualifiers: Diabetes mellitus assistant terminal manager insulin use: without assistant terminal manager use Diabetes mellitus complication status: with unspecified complications Qualified Code(s) : E11.8 - Type 2 diabetes mellitus with unspecified complications (8) HTN (hypertension) Current Visit: Yes Status: Chronic Most recent blood pressure of 123/79 We will carefully monitor in setting of sedation Qualifiers: Hypertension type: essential hypertension Qualified Code(s): I10 - Essential (primary) hypertension (9) History of seizure Current Visit: Yes Status: Chronic Continue home medications as able Continue propofol and sentinel for sedation (10) DVT prophylaxis Current Visit: Yes Status: Acute Heparin 5000 units every 8 hours History of Present Illness Consult date: 09/06/17 Requesting physician: Rigoberto Davis Reason for consult: hypoxemia Chief complaint: "Low O2" dyspnea History of present illness: 62-year-old male with a history of seizures, hypertension presents to emergency department from his home health due to readings of low oxygen saturation of hypotension. He was notable to have oxygen saturation in the 80s at time of his follow-up appointment. He did have a spinal fusion of C4 to C7 on 08/29/17. He did notably complain of cough with thick green sputum but denied any symptoms of fevers, chills, nausea, vomiting, chest pain. In the emergency room , vital signs are significant for respiratory rate 26 and oxygen saturation 87% . Laboratory results significant for baseline anemia, elevated d-dimer of 1592 , hyponatremia 133, bicarbonate 30, BUNs/creatinine of 32/2.16, BNP of 170. Chest x-ray in emergency room showed shallow inspiration with mild bibasilar atelectasis. Chest CTA was performed to rule out pulmonary embolism and showed ill-defined airspace opacities in the lower lobes bilaterally consistent with multifocal infection or inflammatory process. He was admitted to medicine service for further evaluation and management of acute respiratory failure secondary to aspiration versus healthcare associated pneumonia. He was started on vancomycin and Zosyn. During course of hospital stay, patient did receive a barium swallow which showed laryngeal penetration and aspiration. Soft tissue CT showed a density in the left parapharyngeal space which may represent a small phlegmon, however orthopedic surgery was consult and thought this was likely related to post procedural inflammation and less likely abscess. Vancomycin was continued for a total of 5 days.ENT was consulted for left total focal cord paralysis and he underwent a NPL scope. He was started on TPN due to aspiration. Patient was taken to endoscopy suite for planning of a PEG tube due to inability to tolerate oral intake. During PEG tube attempt, patient was intubated and PEG tube was unable to be placed due to small bowel overlying the stomach. He was also noted to have bronchospasms during the procedure and he was unable to be extubated following. He was transferred to the intensive care unit following the procedure. Past Med Surg Social Fam HX - Past Medical History Medical history: arthritis, diabetes, hypertension, seizures Psychiatric history: depression - Past Surgical History Surgical History: orthopedic, other - Social History Smoking Status: Never smoker Smokeless Tobacco Status: No Alcohol use: none Drug use: none - Family History Father Living Status: Age at : 82 Cause of : old age Hx Family Cardiac Disorders: Yes (Hypertension) Hx Family Endocrine Disorder: Yes (Diabetes) Mother Living Status: Age at : 86 Cause of : old age ROS unobtainable: due to endotracheal tube All Systems: The remainder of the systems were reviewed and are negative Physical Examination Vital Signs: Vital Signs, Last 4 Hours Temp Pulse Resp BP Pulse Ox 09/06/17 13:58 97.6 F 86 16 145/94 96 Gen.: Vitals noted. No acute distress. Intubated and sedated. Resting comfortably however does jerk sporadically HEENT: PERRL/EOMI, oropharynx clear, Normocephalic, atraumatic, MMM, endotracheal tube in place. Cervical collar in place Cardiac: RRR, no murmur, +S1/S2 Pulmonary: Mild rales more prominent on right greater than left, middle lobe. equal chest expansion Abdomen: soft, BS noted, no guarding, no rebound. MSK: no joint swelling noted Extremities: no BLE edema, nontender calf, no cyanosis or clubbing Neuro: Sedated and intubated. Pupils are equal and reactive to light. Unable to assess further Psych: Unable to assess Results - Laboratory Findings CBC and BMP: 09/06/17 03:54 09/06/17 03:54 PT/INR, D-dimer D-Dimer 1592 ng/mLFEU (0-500) H 08/31/17 16:35 Abnormal lab findings: Abnormal lab results WBC 11.6 K/mcL (4.3-11.1) H 09/06/17 03:54 RBC 3.42 M/mcL (4.19-5.50) L 09/06/17 03:54 Hgb 11.9 g/dL (12.9-16.9) L 09/06/17 03:54 Hct 33.6 % (37.5-50.1) L 09/06/17 03:54 MCH 34.8 pg (28.0-33.3) H 09/06/17 03:54 Neutrophils # 9.8 K/mcL (1.6-8.9) H 09/06/17 03:54 D-Dimer 1592 ng/mLFEU (0-500) H 08/31/17 16:35 Creatinine 1.49 mg/dL (0.70-1.30) H 09/06/17 03:54 Est GFR ( Amer) 58 (> 60) L 09/06/17 03:54 Est GFR (Non-Af Amer) 48 (> 60) L 09/06/17 03:54 Glucose 182 mg/dL (70-105) H 09/06/17 03:54 POC Glucose 147 mg/dL (70-99) H 09/06/17 11:18 Calculated Osmolality 303 (280-300) H 09/06/17 03:54 B-Natriuretic Peptide 170 pg/mL (Less than 100) H 08/31/17 16:35 Triglycerides 169 mg/dL (< 150) H 09/05/17 04:04 Urine Protein 30 mg/dL (Neg-Trace) H 09/06/17 09:30 Urine Microscopic RBC 5-15 per hpf (0-3) H 09/06/17 09:30 - Clinical Findings Intake & Output: Intake & Output 09/06/17 09/06/17 09/06/17 07:59 15:59 23:59 Intake Total 200 / 200 Output Total 925 / 925 725 / 725 Balance -725 / -725 -725 / -725 Weight 87.3 kg
--- NOTE | 2017-09-06 16:10 | Event Note ---
Date of Encounter: 09/06/17 Time of Encounter: 15:50 Patient is seen and evaluated in the EGD suite recovery room 62-year-old male status post cervical fusion 1 week ago, admitted for severe sepsis secondary to recurrent aspiration pneumonia, suspected healthcare associated pneumonia, recurrent falls post surgery, dysphagia, left vocal cord dysfunction, pharyngeal edema. Patient has been reviewed by ENT 09/05/17 and recommendation was for alternative means of feeding due to left vocal cord paralysis causing patient's dysphagia. Attention was drawn to the patient by Dr. Lópze. Patient was unable to be extubated after being intubated for procedure. Per anestheist, patient continued to desaturate , procedure not completed Patient was signed out to Dr. Blas of intensive care unit Patient's could not be seen at the bedside or waiting area of the ICU or GI suite, we will call on the phone
[2017-09-06] MEDS ORDERED: Lacri-Lube 3.5 GM TUBE BOTH EYES PRN (16:11)
[2017-09-06] MEDS ORDERED: Clinimix E 5%-15% SOLUTION 2,000 ML with MVI, adult with vitamin K 10 ML IVC SCH (17:00)
[2017-09-06 17:06] LABS: ABG Base Excess 3 mEq/L (-2 to 3); ABG HCO3 29 mEq/L (21-27); ABG Oxygen Saturation 95 % (95-98); ABG PCO2 53 mmHg (35-45); ABG PH 7.35 pH Units (7.32-7.45); ABG PO2 79 mmHg (85-104); ABG TCO2 31 mEq/L (20-26); Blood Gas Modality VC; Blood Gas PEEP 5 cm H2O; Blood Gas Respiration Rate 12; Blood Gas VT 500 cc
[2017-09-06] MEDS: FentaNYL (PF) 1,000 MCG in 0.9 % Sodium Chloride 80 ML IVC SCH (17:14)
[2017-09-06] MEDS: Chlorhexidine Rinse 15 ML MOUTHWASH MM SCH (21:36)
[2017-09-06] MEDS: Lacri-Lube 3.5 GM TUBE BOTH EYES SCH ×2 (21:46→21:51)
[2017-09-06] MEDS ORDERED: diazePAM 10 MG/2 ML SYRINGE IVP ONE (21:52)
[2017-09-06] MEDS ORDERED: Insulin LISPRO 300 UNITS/3 ML VIAL SQ SCH (23:45)
[2017-09-07] MEDS: Dexamethasone 10 MG/ML VIAL IVP SCH (00:27)
[2017-09-07] MEDS: OXYCODONE Oral CONC 10 MG/0.5 ML ORAL.SYG SL SCH ×6 (00:27→19:42)
[2017-09-07] MEDS: FentaNYL (PF) 1,000 MCG in 0.9 % Sodium Chloride 80 ML IVC SCH ×3 (00:39→12:52)
[2017-09-07] MEDS: Piperacillin/Tazobactam 3.375 GM in 0.9 % Sodium Chloride Mini Bag 100 ML IVPB SCH ×3 (01:59→17:32)
[2017-09-07] MEDS: Ipratropium/Albuterol Neb 3 ML IH SCH ×4 (04:07→19:55)
[2017-09-07 04:55] LABS: Calcium 7.9 mg/dL (8.6-10.3); Magnesium 2.1 mg/dL (1.6-2.6); Phosphorous 3.5 mg/dL (2.7-4.5)
[2017-09-07 05:23] LABS: VBG Ionized Calcium 1.06 mmol/L (1.15-1.35)
[2017-09-07] MEDS: Lacri-Lube 3.5 GM TUBE BOTH EYES SCH ×5 (05:43→19:36)
[2017-09-07] MEDS: *HR* Heparin 5,000 UNIT/ML VIAL SQ SCH ×2 (05:43→14:23)
[2017-09-07 06:14] LABS: ABG Base Excess 0 mEq/L (-2 to 3); ABG HCO3 26 mEq/L (21-27); ABG Oxygen Saturation 98 % (95-98); ABG PCO2 47 mmHg (35-45); ABG PH 7.34 pH Units (7.32-7.45); ABG PO2 107 mmHg (85-104); ABG TCO2 27 mEq/L (20-26); Blood Gas Modality VC; Blood Gas PEEP 5 cm H2O; Blood Gas Respiration Rate 12; Blood Gas VT 500 cc
--- NOTE | 2017-09-07 07:52 | Pulmonology Progress Note ---
<AmbreenRaheemjayme M - Last Filed: 09/07/17 10:15> Date of Encounter: 09/07/17 Objective PUL Vital signs: Last Vital Signs Temp 98.0 F 09/07/17 07:41 Pulse 77 09/07/17 09:00 Resp 13 09/07/17 09:24 BP 111/61 09/07/17 09:24 Pulse Ox 97 09/07/17 09:24 Ventilator Settings Ventilator Settings: Ventilator Settings, Last 8 Hours Ventilator Mode VC+ Ventilator Mode VC+ Ventilator Mode VC+ Ventilator Mode VC+ Ventilator Mode VC+ Ventilator Mode VC+ Ventilator Mode VC+ Ventilator Mode VC+ Ventilator Mode VC+ Ventilator Tidal Volume 500 Setting Ventilator Tidal Volume 500 Setting Ventilator Tidal Volume 500 Setting Ventilator Tidal Volume 500 Setting Ventilator Tidal Volume 500 Setting Ventilator Tidal Volume 500 Setting Ventilator Tidal Volume 500 Setting Ventilator Tidal Volume 500 Setting Ventilator Tidal Volume 500 Setting Ventilator Tidal Volume 500 Setting Ventilator Tidal Volume 500 Setting Ventilator Tidal Volume 500 Setting Ventilator Respiratory Rate 12 Setting Ventilator Respiratory Rate 12 Setting Ventilator Respiratory Rate 12 Setting Ventilator Respiratory Rate 12 Setting Ventilator Respiratory Rate 12 Setting Ventilator Respiratory Rate 12 Setting Ventilator Respiratory Rate 12 Setting Ventilator Respiratory Rate 12 Setting Ventilator Respiratory Rate 12 Setting Ventilator Respiratory Rate 12 Setting Ventilator Respiratory Rate 12 Setting Ventilator Respiratory Rate 12 Setting Actual Respiratory Rate 13 Actual Respiratory Rate 14 Actual Respiratory Rate 13 Actual Respiratory Rate 30 Actual Respiratory Rate 14 Actual Respiratory Rate 30 Actual Respiratory Rate 21 Actual Respiratory Rate 16 Actual Respiratory Rate 14 Actual Respiratory Rate 17 Actual Respiratory Rate 16 Positive End Expiratory 5 Pressure Positive End Expiratory 5 Pressure Positive End Expiratory 5 Pressure Positive End Expiratory 5 Pressure Positive End Expiratory 5 Pressure Positive End Expiratory 5 Pressure Positive End Expiratory 5 Pressure Positive End Expiratory 5 Pressure Positive End Expiratory 5 Pressure Positive End Expiratory 5 Pressure Positive End Expiratory 5 Pressure Positive End Expiratory 5 Pressure Peak Inspiratory Airway 22 Pressure Peak Inspiratory Airway 23 Pressure Peak Inspiratory Airway 16 Pressure Peak Inspiratory Airway 17 Pressure Peak Inspiratory Airway 17 Pressure Peak Inspiratory Airway 14 Pressure Peak Inspiratory Airway 15 Pressure Peak Inspiratory Airway 23 Pressure Peak Inspiratory Airway 21 Pressure Peak Inspiratory Airway 21 Pressure Peak Inspiratory Airway 18 Pressure Results - Laboratory Findings CBC and BMP: 09/06/17 03:54 09/07/17 04:05 ABG ABG pH 7.34 pH Units (7.32-7.45) 09/07/17 06:11 ABG pCO2 47 mmHg (35-45) H 09/07/17 06:11 ABG pO2 107 mmHg (85-104) H 09/07/17 06:11 ABG O2 Saturation 98 % (95-98) 09/07/17 06:11 PT/INR, D-dimer D-Dimer 1592 ng/mLFEU (0-500) H 08/31/17 16:35 Abnormal lab findings: Abnormal lab results WBC 11.6 K/mcL (4.3-11.1) H 09/06/17 03:54 RBC 3.42 M/mcL (4.19-5.50) L 09/06/17 03:54 Hgb 11.9 g/dL (12.9-16.9) L 09/06/17 03:54 Hct 33.6 % (37.5-50.1) L 09/06/17 03:54 MCH 34.8 pg (28.0-33.3) H 09/06/17 03:54 Neutrophils # 9.8 K/mcL (1.6-8.9) H 09/06/17 03:54 D-Dimer 1592 ng/mLFEU (0-500) H 08/31/17 16:35 ABG pCO2 47 mmHg (35-45) H 09/07/17 06:11 ABG pO2 107 mmHg (85-104) H 09/07/17 06:11 ABG Total CO2 27 mEq/L (20-26) H 09/07/17 06:11 Potassium 3.0 mEq/L (3.5-5.1) L 09/07/17 04:05 BUN 27 mg/dL (8-23) H 09/07/17 04:05 Creatinine 1.94 mg/dL (0.70-1.30) H 09/07/17 04:05 Est GFR ( Amer) 43 (> 60) L 09/07/17 04:05 Est GFR (Non-Af Amer) 35 (> 60) L 09/07/17 04:05 Glucose 326 mg/dL (70-105) H 09/07/17 04:05 POC Glucose 359 mg/dL (70-99) H 09/07/17 07:18 Calculated Osmolality 314 (280-300) H 09/07/17 04:05 Calcium 7.9 mg/dL (8.6-10.3) L 09/07/17 04:05 Venous Ioniz Calcium 1.06 mmol/L (1.15-1.35) L 09/07/17 04:25 B-Natriuretic Peptide 170 pg/mL (Less than 100) H 08/31/17 16:35 Triglycerides 169 mg/dL (< 150) H 09/05/17 04:04 Urine Protein 30 mg/dL (Neg-Trace) H 09/06/17 09:30 Urine Microscopic RBC 5-15 per hpf (0-3) H 09/06/17 09:30 - Clinical Findings Intake & Output: Intake & Output 09/06/17 09/07/17 09/07/17 23:59 07:59 15:59 Intake Total 465 / 465 335 / 335 350 / 350 Output Total 350 / 350 480 / 480 Balance 115 / 115 -145 / -145 350 / 350 Weight 87.3 kg Consult Discharge Plan - Plan Referrals: Dieter Leonardo DO [Primary Care Provider] - - Attending Attestation I examined this patient and my medical decision-making was reviewed with the Resident Physician. I agree with the documented findings, disposition and treatment plan as described except to the extent set forth below. Patient seen and examined. Labs, radiology, chart personally reviewed. 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, Pulmonary: Acceptable oxygenation and ventilation, and bronchodilators with steroid and if no plan for procedures then we will consider extubation Cardiovascular: stable GI: Nutrition per dietary and GI prophylaxis per routine GI follow-up Heme: DVT prophylaxis per routine ID: Continue antibiotics and plan to de-escalation Renal; urine out put and renal funtion reviewed Endorcine: blood glucose is monitored Lines: all lines checked and no evidence of infections Skin: skin care to prevent pressure ulcers per nursing routine care <Paxton Stinson - Last Filed: 09/07/17 14:54> Date of Encounter: 09/07/17 Time of Encounter: 08:27 Assessment and Plan (1) Acute respiratory failure Current Visit: Yes Status: Acute - Acute respiratory failure following PEG tube attempted placement this afternoon - Likely secondary to bronchospasm with underlying aspiration pneumonia - Completed 5 day course of vancomycin. Day #8 of Zosyn -ABG shows acute hypercapnic respiratory acidosis - CTA on admission showing multifocal process suggestive of possible aspiration versus multifocal pneumonia - Repeat chest x-ray for endotracheal tube placement showing central congestion - Blood and sputum cultures negative for growth, Legionella and sharp pneumonia antigen negative - Mild WBC elevation of 11.6, afebrile during admission - No reported respiratory history, no echocardiogram on record Plan - Continue supportive care with ventilator management - Sedation with propofol and fentanyl - Continue Zosyn day #8 - DuoNeb's, albuterol - Already receiving Decadron next swelling Patient is actually well and gastroenterology is not planning on repeat trial PEG tube placement due to anatomy. We will attempt CPAP trials afternoon with goal of extubation. Qualifiers: Respiratory failure complication: hypoxia and hypercapnia Qualified Code(s) : J96.01 - Acute respiratory failure with hypoxia; J96.02 - Acute respiratory failure with hypercapnia (2) Aspiration pneumonia Current Visit: Yes Status: Acute - As above for acute respiratory failure with hypoxia and hypercapnia - Further management as above Qualifiers: Aspiration pneumonia type: unspecified Laterality: unspecified laterality Lung location: unspecified part of lung Qualified Code(s): J69.0 - Pneumonitis due to inhalation of food and vomit (3) KRISTA (acute kidney injury) Current Visit: Yes Status: Acute - BUN/creatinine 27/1.94 creatinine increasing from 1.49 - Possibly secondary to no oral intake versus medications - We will give 500 mL bolus and recheck kidney function in the afternoon - If he continues to increase we will consider gentle fluid hydration (4) Hypoxia Current Visit: Yes Status: Acute As above for acute respiratory failure (5) Vocal cord paralysis Current Visit: Yes Status: Acute - Ear nose and throat doctors consulted and following - Possibly secondary to spinal cord fusion - Likely contributed to aspiration with pneumonia - Continue Decadron, final dose given today, swallow therapy when able, speech therapy - We will need additional barium swallow and testing when able (6) Status post cervical spinal fusion Current Visit: Yes Status: Acute - Further management per orthopedics - C-collar in place while intubated (7) HTN (hypertension) Current Visit: Yes Status: Chronic well-controlled at 110/72 Continue to monitor Qualifiers: Hypertension type: essential hypertension Qualified Code(s): I10 - Essential (primary) hypertension (8) History of seizure Current Visit: Yes Status: Chronic Continue home medications as able Continue propofol and sentinel for sedation (9) Elevated blood sugar Current Visit: Yes Status: Acute - Elevated blood sugars in the 300s however patient has an A1c of 5.2% in July 2016 - Insulin coverage started last night - Elevated blood sugars likely secondary to steroid use as well as stress reaction - Continue monitor and decrease insulin as tolerated - Steroids stopped today (10) DVT prophylaxis Current Visit: Yes Status: Acute Heparin 5000 units every 8 hours Subjective Principal diagnosis: s/p cervical fusion, dysphagia, aspiration pneumonia Interval history: Patient seen and examined at bedside this morning. He is intubated and sedated and unable to participate in interview. No acute events overnight Objective PUL Vital signs: Last Vital Signs Temp 98.0 F 09/07/17 07:41 Pulse 77 09/07/17 07:45 Resp 30 09/07/17 07:20 BP 103/60 09/07/17 07:20 Pulse Ox 97 09/07/17 07:20 Gen.: Vitals noted. No acute distress. Intubated and sedated HEENT: PERRL/EOMI, oropharynx clear, Normocephalic, atraumatic, MMM, endotracheal tube in place, cervical collar in place Cardiac: RRR, no murmur, +S1/S2 Pulmonary: CTA bilaterally, no wheezes, rales or rhonchi, equal chest expansion Abdomen: soft, nontender, BS noted, no guarding, no rebound. MSK: ROM intact, no joint swelling noted Extremities: no BLE edema, nontender calf, no cyanosis or clubbing Neuro: Sedated, unable to assess further Psych: Able to assess Ventilator Settings Ventilator Settings: Ventilator Settings, Last 8 Hours Ventilator Mode VC+ Ventilator Mode VC+ Ventilator Mode VC+ Ventilator Mode VC+ Ventilator Mode VC+ Ventilator Mode VC+ Ventilator Mode VC+ Ventilator Mode VC+ Ventilator Mode VC+ Ventilator Tidal Volume 500 Setting Ventilator Tidal Volume 500 Setting Ventilator Tidal Volume 500 Setting Ventilator Tidal Volume 500 Setting Ventilator Tidal Volume 500 Setting Ventilator Tidal Volume 500 Setting Ventilator Tidal Volume 500 Setting Ventilator Tidal Volume 500 Setting Ventilator Tidal Volume 500 Setting Ventilator Tidal Volume 500 Setting Ventilator Tidal Volume 500 Setting Ventilator Respiratory Rate 12 Setting Ventilator Respiratory Rate 12 Setting Ventilator Respiratory Rate 12 Setting Ventilator Respiratory Rate 12 Setting Ventilator Respiratory Rate 12 Setting Ventilator Respiratory Rate 12 Setting Ventilator Respiratory Rate 12 Setting Ventilator Respiratory Rate 12 Setting Ventilator Respiratory Rate 12 Setting Ventilator Respiratory Rate 12 Setting Ventilator Respiratory Rate 12 Setting Actual Respiratory Rate 30 Actual Respiratory Rate 14 Actual Respiratory Rate 30 Actual Respiratory Rate 21 Actual Respiratory Rate 16 Actual Respiratory Rate 14 Actual Respiratory Rate 17 Actual Respiratory Rate 16 Actual Respiratory Rate 14 Actual Respiratory Rate 14 Positive End Expiratory 5 Pressure Positive End Expiratory 5 Pressure Positive End Expiratory 5 Pressure Positive End Expiratory 5 Pressure Positive End Expiratory 5 Pressure Positive End Expiratory 5 Pressure Positive End Expiratory 5 Pressure Positive End Expiratory 5 Pressure Positive End Expiratory 5 Pressure Positive End Expiratory 5 Pressure Positive End Expiratory 5 Pressure Peak Inspiratory Airway 17 Pressure Peak Inspiratory Airway 17 Pressure Peak Inspiratory Airway 14 Pressure Peak Inspiratory Airway 15 Pressure Peak Inspiratory Airway 23 Pressure Peak Inspiratory Airway 21 Pressure Peak Inspiratory Airway 21 Pressure Peak Inspiratory Airway 18 Pressure Peak Inspiratory Airway 18 Pressure Peak Inspiratory Airway 17 Pressure Results - Laboratory Findings CBC and BMP: 09/07/17 08:35 09/07/17 13:00 ABG ABG pH 7.34 pH Units (7.32-7.45) 09/07/17 06:11 ABG pCO2 47 mmHg (35-45) H 09/07/17 06:11 ABG pO2 107 mmHg (85-104) H 09/07/17 06:11 ABG O2 Saturation 98 % (95-98) 09/07/17 06:11 PT/INR, D-dimer D-Dimer 1592 ng/mLFEU (0-500) H 08/31/17 16:35 Abnormal lab findings: Abnormal lab results WBC 11.6 K/mcL (4.3-11.1) H 09/06/17 03:54 RBC 3.42 M/mcL (4.19-5.50) L 09/06/17 03:54 Hgb 11.9 g/dL (12.9-16.9) L 09/06/17 03:54 Hct 33.6 % (37.5-50.1) L 09/06/17 03:54 MCH 34.8 pg (28.0-33.3) H 09/06/17 03:54 Neutrophils # 9.8 K/mcL (1.6-8.9) H 09/06/17 03:54 D-Dimer 1592 ng/mLFEU (0-500) H 08/31/17 16:35 ABG pCO2 47 mmHg (35-45) H 09/07/17 06:11 ABG pO2 107 mmHg (85-104) H 09/07/17 06:11 ABG Total CO2 27 mEq/L (20-26) H 09/07/17 06:11 Potassium 3.0 mEq/L (3.5-5.1) L 09/07/17 04:05 BUN 27 mg/dL (8-23) H 09/07/17 04:05 Creatinine 1.94 mg/dL (0.70-1.30) H 09/07/17 04:05 Est GFR ( Amer) 43 (> 60) L 09/07/17 04:05 Est GFR (Non-Af Amer) 35 (> 60) L 09/07/17 04:05 Glucose 326 mg/dL (70-105) H 09/07/17 04:05 POC Glucose 359 mg/dL (70-99) H 09/07/17 07:18 Calculated Osmolality 314 (280-300) H 09/07/17 04:05 Calcium 7.9 mg/dL (8.6-10.3) L 09/07/17 04:05 Venous Ioniz Calcium 1.06 mmol/L (1.15-1.35) L 09/07/17 04:25 B-Natriuretic Peptide 170 pg/mL (Less than 100) H 08/31/17 16:35 Triglycerides 169 mg/dL (< 150) H 09/05/17 04:04 Urine Protein 30 mg/dL (Neg-Trace) H 09/06/17 09:30 Urine Microscopic RBC 5-15 per hpf (0-3) H 09/06/17 09:30 - Clinical Findings Intake & Output: Intake & Output 09/06/17 09/06/17 09/07/17 15:59 23:59 07:59 Intake Total 465 / 465 335 / 335 Output Total 725 / 725 350 / 350 480 / 480 Balance -725 / -725 115 / 115 -145 / -145 Weight 87.3 kg
[2017-09-07] MEDS: Pantoprazole 40 MG VIAL IVP SCH (08:25)
[2017-09-07] MEDS: Insulin LISPRO 300 UNITS/3 ML VIAL SQ SCH ×4 (08:25→19:58)
[2017-09-07] MEDS: Chlorhexidine Rinse 15 ML MOUTHWASH MM SCH ×2 (08:25→19:41)
[2017-09-07] MEDS ORDERED: 0.9 % Sodium Chloride 500 ML IVC ONE (08:46)
[2017-09-07] MEDS: diazePAM 10 MG/2 ML SYRINGE IVP SCH (09:08)
[2017-09-07 10:30] LABS: Basophils % 0.2 %; Eosinophils % 0.1 %; Hematocrit 31.3 % (37.5-50.1); Immature Granulocytes % 2.1 % (0-4); Lymphocytes % 12.4 %; Mean Corpuscular HGB Conc 32.9 g/dL (31.6-35.5); Mean Corpuscular Hemoglobin 33.8 pg (28.0-33.3); Mean Corpuscular Volume 102.6 fL (83.0-100.0); Mean Platelet Volume 9.2 fL (9.4-12.4); Monocytes # 0.8 K/mcL (0.0-1.3); Monocytes % 10.4 %; Platelet Count 220 K/mcL (140-400); Red Blood Count 3.05 M/mcL (4.19-5.50); Red Cell Distribution Width 13.6 % (11.5-14.5); Segmented Neutrophils % 74.8 %
[2017-09-07 10:31] LABS: Hemoglobin 10.3 g/dL (12.9-16.9)
[2017-09-07] MEDS ORDERED: diazePAM 10 MG/2 ML SYRINGE IVP PRN (10:31)
[2017-09-07 13:14] LABS: VBG Ionized Calcium 1.07 mmol/L (1.15-1.35)
[2017-09-07 13:59] LABS: Potassium 2.7 mEq/L (3.5-5.1)
[2017-09-07] MEDS ORDERED: Clinimix E 5%-15% SOLUTION 2,000 ML with MVI, adult with vitamin K 10 ML IVC SCH (17:00)
[2017-09-07] MEDS ORDERED: *HR* Dextrose 50 % in Water (Syg) 50 ML SYRINGE ONE (17:24)
[2017-09-07] MEDS ORDERED: *HR* Dextrose 50 % in Water (Syg) 50 ML SYRINGE IVP ONE (17:26)
[2017-09-07 18:09] LABS: Albumin 3.2 g/dL (3.5-5.7); Calcium 8.4 mg/dL (8.6-10.3); Phosphorous 4.6 mg/dL (2.7-4.5)
[2017-09-07] MEDS ORDERED: Haloperidol Lactate 5 MG/ML VIAL IVP ONE (21:27)
[2017-09-08] MEDS: OXYCODONE Oral CONC 10 MG/0.5 ML ORAL.SYG SL SCH ×6 (00:25→20:59)
[2017-09-08] MEDS: *HR* Heparin 5,000 UNIT/ML VIAL SQ SCH ×4 (00:25→21:00)
[2017-09-08] MEDS: Insulin LISPRO 300 UNITS/3 ML VIAL SQ SCH ×6 (00:27→19:28)
[2017-09-08] MEDS: Lacri-Lube 3.5 GM TUBE BOTH EYES SCH ×3 (00:27→08:26)
[2017-09-08] MEDS: Ipratropium/Albuterol Neb 3 ML IH SCH ×4 (04:03→21:09)
[2017-09-08] MEDS: Piperacillin/Tazobactam 3.375 GM in 0.9 % Sodium Chloride Mini Bag 100 ML IVPB SCH ×3 (04:14→18:31)
[2017-09-08 04:41] LABS: Basophils % 0.4 %; Eosinophils # 0.1 K/mcL (0.0-0.6); Eosinophils % 0.5 %; Hematocrit 30.6 % (37.5-50.1); Hemoglobin 10.6 g/dL (12.9-16.9); Immature Granulocytes % 1.8 % (0-4); Lymphocytes # 1.5 K/mcL (0.6-4.6); Lymphocytes % 16.2 %; Mean Corpuscular HGB Conc 34.6 g/dL (31.6-35.5); Mean Corpuscular Hemoglobin 34.9 pg (28.0-33.3); Mean Corpuscular Volume 100.7 fL (83.0-100.0); Mean Platelet Volume 9.7 fL (9.4-12.4); Monocytes # 0.8 K/mcL (0.0-1.3); Neutrophils # 6.6 K/mcL (1.6-8.9); Nucleated Red Blood Cells 0.2 /100 WBC (0); Platelet Count 262 K/mcL (140-400); Red Blood Count 3.04 M/mcL (4.19-5.50); Red Cell Distribution Width 13.6 % (11.5-14.5); Segmented Neutrophils % 72.1 %
[2017-09-08 04:42] LABS: VBG Ionized Calcium 1.06 mmol/L (1.15-1.35)
[2017-09-08 04:53] LABS: Calcium 8.8 mg/dL (8.6-10.3); Phosphorous 3.8 mg/dL (2.7-4.5); Potassium 3.4 mEq/L (3.5-5.1)
--- NOTE | 2017-09-08 07:41 | Pulmonology Progress Note ---
<GianasilviaPat crespo M - Last Filed: 09/08/17 12:57> Date of Encounter: 09/08/17 Objective PUL Vital signs: Last Vital Signs Temp 98.8 F 09/08/17 08:00 Pulse 76 09/08/17 10:00 Resp 20 09/08/17 10:00 BP 135/69 09/08/17 10:00 Pulse Ox 95 09/08/17 10:00 Results - Laboratory Findings CBC and BMP: 09/08/17 04:00 09/08/17 04:00 ABG ABG pH 7.34 pH Units (7.32-7.45) 09/07/17 06:11 ABG pCO2 47 mmHg (35-45) H 09/07/17 06:11 ABG pO2 107 mmHg (85-104) H 09/07/17 06:11 ABG O2 Saturation 98 % (95-98) 09/07/17 06:11 PT/INR, D-dimer D-Dimer 1592 ng/mLFEU (0-500) H 08/31/17 16:35 Abnormal lab findings: Abnormal lab results RBC 3.04 M/mcL (4.19-5.50) L 09/08/17 04:00 Hgb 10.6 g/dL (12.9-16.9) L 09/08/17 04:00 Hct 30.6 % (37.5-50.1) L 09/08/17 04:00 MCV 100.7 fL (83.0-100.0) H 09/08/17 04:00 MCH 34.9 pg (28.0-33.3) H 09/08/17 04:00 Nucleated RBCs/100 WBC 0.2 /100 WBC (0) H 09/08/17 04:00 D-Dimer 1592 ng/mLFEU (0-500) H 08/31/17 16:35 ABG pCO2 47 mmHg (35-45) H 09/07/17 06:11 ABG pO2 107 mmHg (85-104) H 09/07/17 06:11 ABG Total CO2 27 mEq/L (20-26) H 09/07/17 06:11 Sodium 148 mEq/L (136-145) H 09/08/17 04:00 Potassium 3.4 mEq/L (3.5-5.1) L D 09/08/17 04:00 Chloride 112 mEq/L (98-107) H 09/08/17 04:00 Carbon Dioxide 32 mEq/L (23-29) H 09/08/17 04:00 BUN 26 mg/dL (8-23) H 09/08/17 04:00 Creatinine 1.89 mg/dL (0.70-1.30) H 09/08/17 04:00 Est GFR ( Amer) 44 (> 60) L 09/08/17 04:00 Est GFR (Non-Af Amer) 37 (> 60) L 09/08/17 04:00 Glucose 135 mg/dL (70-105) H 09/08/17 04:00 POC Glucose 136 mg/dL (70-99) H 09/08/17 08:42 Calculated Osmolality 313 (280-300) H 09/08/17 04:00 Venous Ioniz Calcium 1.06 mmol/L (1.15-1.35) L 09/08/17 04:38 B-Natriuretic Peptide 170 pg/mL (Less than 100) H 08/31/17 16:35 Albumin 3.2 g/dL (3.5-5.7) L 09/07/17 13:00 Triglycerides 169 mg/dL (< 150) H 09/05/17 04:04 Urine Protein 30 mg/dL (Neg-Trace) H 09/06/17 09:30 Urine Microscopic RBC 5-15 per hpf (0-3) H 09/06/17 09:30 - Clinical Findings Intake & Output: Intake & Output 09/07/17 09/08/17 09/08/17 23:59 07:59 15:59 Intake Total 490 / 490 210 / 210 100 / 100 Output Total 1075 / 1075 1600 / 1600 Balance -585 / -585 -1390 / -1390 100 / 100 Consult Discharge Plan - Plan Referrals: Dieter Leonardo DO [Primary Care Provider] - - Attending Attestation I examined this patient and my medical decision-making was reviewed with the Resident Physician. I agree with the documented findings, disposition and treatment plan as described except to the extent set forth below. Patient seen and examined. Labs, radiology, chart personally reviewed. 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 This is the main issue for the patient and speech to evaluate patient and will start patient on IV fluid. Gastroenterology and patient to decide about further plan. With vocal cord problem and if he does not speech for swallowing I suspect this might be more of a chronic problem. Heme: DVT prophylaxis per routine ID: Continue antibiotics and plan to de-escalation Renal; urine out put and renal funtion reviewed. Patient will need IV fluid Endorcine: blood glucose is monitored Lines: all lines checked and no evidence of infections Skin: skin care to prevent pressure ulcers per nursing routine care Patient is stable to be transferred to the floor. <Paxton Stinson - Last Filed: 09/08/17 17:23> Date of Encounter: 09/08/17 Time of Encounter: 09:10 Assessment and Plan (1) Acute respiratory failure Current Visit: Yes Status: Resolved - Acute respiratory failure following PEG tube attempted placement this afternoon - Likely secondary to bronchospasm with underlying aspiration pneumonia - Completed 5 day course of vancomycin. Day #8 of Zosyn -ABG shows acute hypercapnic respiratory acidosis - CTA on admission showing multifocal process suggestive of possible aspiration versus multifocal pneumonia - Repeat chest x-ray for endotracheal tube placement showing central congestion - Blood and sputum cultures negative for growth, Legionella and sharp pneumonia antigen negative - WBC stable at 9.2, afebrile during admission - No reported respiratory history, no echocardiogram on record Plan - Continue supplemental oxygen as tolerated, currently on room air - Continue Zosyn day #8, will discontinue after today - DuoNeb's, albuterol - Course of Decadron completed Stable for transfer to floor at this time. Pending transfer Qualifiers: Respiratory failure complication: hypoxia and hypercapnia Qualified Code(s) : J96.01 - Acute respiratory failure with hypoxia; J96.02 - Acute respiratory failure with hypercapnia (2) Aspiration pneumonia Current Visit: Yes Status: Acute - As above for acute respiratory failure with hypoxia and hypercapnia - Further management as above Swallow study as below, continue speech therapy Qualifiers: Aspiration pneumonia type: unspecified Laterality: unspecified laterality Lung location: unspecified part of lung Qualified Code(s): J69.0 - Pneumonitis due to inhalation of food and vomit (3) KRISTA (acute kidney injury) Current Visit: Yes Status: Acute - BUN/creatinine 26/1.89 creatinine stable previous at 1.83 - Possibly secondary to no oral intake versus medications - Mildly improved with 500 mL bolus yesterday - If he continues to increase we will consider gentle fluid hydration (4) Hypoxia Current Visit: Yes Status: Acute As above for acute respiratory failure (5) Vocal cord paralysis Current Visit: Yes Status: Acute - Ear nose and throat doctors consulted and following - Possibly secondary to spinal cord fusion - Likely contributed to aspiration with pneumonia - swallow therapy when able, speech therapy - Barium swallow performed today and patient again was unable to complete study. Will remain nothing by mouth - Patient will sign acknowledged waiver of aspiration as he would like ice chips. (6) Status post cervical spinal fusion Current Visit: Yes Status: Acute - Further management per orthopedics - C-collar in place while intubated (7) HTN (hypertension) Current Visit: Yes Status: Chronic well-controlled at 131/79 Continue to monitor Qualifiers: Hypertension type: essential hypertension Qualified Code(s): I10 - Essential (primary) hypertension (8) History of seizure Current Visit: Yes Status: Chronic Continue home medications (9) Elevated blood sugar Current Visit: Yes Status: Acute - Elevated blood sugars in the 300s however patient has an A1c of 5.2% in July 2016 - Most recent blood sugars improved and 100s to 180s. - Insulin coverage started last night - Elevated blood sugars likely secondary to steroid use as well as stress reaction - Continue monitor and decrease insulin as tolerated (10) DVT prophylaxis Current Visit: Yes Status: Acute Heparin 5000 units every 8 hours Subjective Principal diagnosis: s/p cervical fusion, dysphagia, aspiration pneumonia Interval history: Patient seen and examined at bedside this morning. Patient is extubated yesterday and states that overall he is feeling a lot better. No complaints of shortness of breath, fevers, chills, chest pain. He is asking to eat at this time. No acute events overnight Objective PUL Vital signs: Last Vital Signs Temp 98.5 F 09/08/17 03:51 Pulse 82 09/08/17 05:44 Resp 14 09/08/17 05:44 BP 139/67 09/08/17 05:44 Pulse Ox 97 09/08/17 05:44 Gen.: Vitals noted. No acute distress. AAOx3 HEENT: PERRL/EOMI, oropharynx clear, Normocephalic, atraumatic, MMM, rasping voice Cardiac: RRR, no murmur, +S1/S2 Pulmonary: CTA bilaterally, no wheezes, rales or rhonchi, equal chest expansion Abdomen: soft, nontender, BS noted, no guarding, no rebound. MSK: ROM intact, no joint swelling noted Extremities: no BLE edema, nontender calf, no cyanosis or clubbing Neuro: A&Ox3, moves all extremities, no focal deficits Psych: Appropriate mood and behavior Results - Laboratory Findings CBC and BMP: 09/08/17 04:00 09/08/17 04:00 ABG ABG pH 7.34 pH Units (7.32-7.45) 09/07/17 06:11 ABG pCO2 47 mmHg (35-45) H 09/07/17 06:11 ABG pO2 107 mmHg (85-104) H 09/07/17 06:11 ABG O2 Saturation 98 % (95-98) 09/07/17 06:11 PT/INR, D-dimer D-Dimer 1592 ng/mLFEU (0-500) H 08/31/17 16:35 Abnormal lab findings: Abnormal lab results RBC 3.04 M/mcL (4.19-5.50) L 09/08/17 04:00 Hgb 10.6 g/dL (12.9-16.9) L 09/08/17 04:00 Hct 30.6 % (37.5-50.1) L 09/08/17 04:00 MCV 100.7 fL (83.0-100.0) H 09/08/17 04:00 MCH 34.9 pg (28.0-33.3) H 09/08/17 04:00 Nucleated RBCs/100 WBC 0.2 /100 WBC (0) H 09/08/17 04:00 D-Dimer 1592 ng/mLFEU (0-500) H 08/31/17 16:35 ABG pCO2 47 mmHg (35-45) H 09/07/17 06:11 ABG pO2 107 mmHg (85-104) H 09/07/17 06:11 ABG Total CO2 27 mEq/L (20-26) H 09/07/17 06:11 Sodium 148 mEq/L (136-145) H 09/08/17 04:00 Potassium 3.4 mEq/L (3.5-5.1) L D 09/08/17 04:00 Chloride 112 mEq/L (98-107) H 09/08/17 04:00 Carbon Dioxide 32 mEq/L (23-29) H 09/08/17 04:00 BUN 26 mg/dL (8-23) H 09/08/17 04:00 Creatinine 1.89 mg/dL (0.70-1.30) H 09/08/17 04:00 Est GFR ( Amer) 44 (> 60) L 09/08/17 04:00 Est GFR (Non-Af Amer) 37 (> 60) L 09/08/17 04:00 Glucose 135 mg/dL (70-105) H 09/08/17 04:00 POC Glucose 133 mg/dL (70-99) H 09/08/17 03:32 Calculated Osmolality 313 (280-300) H 09/08/17 04:00 Venous Ioniz Calcium 1.06 mmol/L (1.15-1.35) L 09/08/17 04:38 B-Natriuretic Peptide 170 pg/mL (Less than 100) H 08/31/17 16:35 Albumin 3.2 g/dL (3.5-5.7) L 09/07/17 13:00 Triglycerides 169 mg/dL (< 150) H 09/05/17 04:04 Urine Protein 30 mg/dL (Neg-Trace) H 09/06/17 09:30 Urine Microscopic RBC 5-15 per hpf (0-3) H 09/06/17 09:30 - Clinical Findings Intake & Output: Intake & Output 09/07/17 09/07/17 09/08/17 15:59 23:59 07:59 Intake Total 770 / 770 490 / 490 210 / 210 Output Total 275 / 275 1075 / 1075 1600 / 1600 Balance 495 / 495 -585 / -585 -1390 / -1390
[2017-09-08] MEDS: Chlorhexidine Rinse 15 ML MOUTHWASH MM SCH (08:27)
[2017-09-08] MEDS: Pantoprazole 40 MG VIAL IVP SCH (08:39)
[2017-09-08] MEDS ORDERED: MORPHINE SUL Oral CONC 10 MG/0.5 ML ORAL.SYG SL PRN (09:29)
[2017-09-08] MEDS ORDERED: D10% in Water 500 ML IVC PRN (09:29)
[2017-09-08] MEDS ORDERED: Clinimix E 5%-15% SOLUTION 2,000 ML with MVI, adult with vitamin K 10 ML IVC SCH ×2 (09:29→17:00)
[2017-09-08] MEDS ORDERED: Naloxone 0.4 MG/ML INJ IVP PRN (09:29)
[2017-09-08] MEDS: D5% in Water 1,000 ML IVC SCH ×2 (12:35→23:01)
[2017-09-08] MEDS: diazePAM 10 MG/2 ML SYRINGE IVP PRN ×2 (13:28→18:31)
[2017-09-08] MEDS ORDERED: Chlorhexidine Rinse 15 ML MOUTHWASH MM SCH (21:00)
[2017-09-09] MEDS: OXYCODONE Oral CONC 10 MG/0.5 ML ORAL.SYG SL SCH ×2 (00:44→04:06)
[2017-09-09] MEDS: Insulin LISPRO 300 UNITS/3 ML VIAL SQ SCH ×2 (00:44→03:54)
[2017-09-09] MEDS: Ipratropium/Albuterol Neb 3 ML IH SCH (03:44)
[2017-09-09] MEDS: Piperacillin/Tazobactam 3.375 GM in 0.9 % Sodium Chloride Mini Bag 100 ML IVPB SCH (04:06)
[2017-09-09 04:21] LABS: Basophils # 0.1 K/mcL (0.0-0.2); Basophils % 0.5 %; Eosinophils # 0.2 K/mcL (0.0-0.6); Eosinophils % 1.3 %; Hematocrit 32.8 % (37.5-50.1); Hemoglobin 10.9 g/dL (12.9-16.9); Immature Granulocytes % 1.2 % (0-4); Lymphocytes # 1.5 K/mcL (0.6-4.6); Mean Corpuscular HGB Conc 33.2 g/dL (31.6-35.5); Mean Corpuscular Volume 99.4 fL (83.0-100.0); Mean Platelet Volume 9.9 fL (9.4-12.4); Monocytes % 7.6 %; Neutrophils # 9.6 K/mcL (1.6-8.9); Platelet Count 283 K/mcL (140-400); Red Cell Distribution Width 13.4 % (11.5-14.5); Segmented Neutrophils % 77.4 %
[2017-09-09 04:40] LABS: Calcium 8.9 mg/dL (8.6-10.3); Magnesium 1.7 mg/dL (1.6-2.6); Phosphorous 3.6 mg/dL (2.7-4.5); Potassium 3.1 mEq/L (3.5-5.1)
[2017-09-09] MEDS ORDERED: Potassium Chloride 40 MEQ, Lidocaine 1% 2 ML in D5% in Water 500 ML IVPB ONE (04:56)
[2017-09-09] MEDS ORDERED: Piperacillin/Tazobactam 3.375 GM VIAL ONE (04:57)
[2017-09-09] MEDS: *HR* Heparin 5,000 UNIT/ML VIAL SQ SCH (05:27)
--- NOTE | 2017-09-09 07:50 | Pulmonology Progress Note ---
<Anoop Galloway - Last Filed: 09/09/17 09:08> Date of Encounter: 09/09/17 Time of Encounter: 07:50 Assessment and Plan (1) Aspiration pneumonia Status: Acute - Aspiration requiring respiratory failure and ultimately intubation. Patient was extubated. Patient does have residual vocal cord paralysis likely etiology of the aspiration. Patient's been followed by ENT. -Remained on antibiotics for 9 days. -Patient is high aspiration risk. -Respiratory support as needed. Swallow study as below, continue speech therapy Qualifiers: Aspiration pneumonia type: unspecified Laterality: unspecified laterality Lung location: unspecified part of lung Qualified Code(s): J69.0 - Pneumonitis due to inhalation of food and vomit (2) KRISTA (acute kidney injury) Status: Acute - BUN/creatinine 23/1.58 creatinine stable and improving. - Possibly secondary to no oral intake versus medications - If he continues to increase we will consider gentle fluid hydration (3) Vocal cord paralysis Status: Acute - Ear nose and throat doctors consulted and following - Possibly secondary to spinal cord fusion - Likely contributed to aspiration with pneumonia - swallow therapy when able, speech therapy - Barium swallow performed today and patient again was unable to complete study. - Patient will sign acknowledged waiver of aspiration as he would like ice chips. (4) HTN (hypertension) Status: Chronic Controlled. Continue to monitor Qualifiers: Hypertension type: essential hypertension Qualified Code(s): I10 - Essential (primary) hypertension (5) Status post cervical spinal fusion Status: Acute Further management per orthopedics (6) Elevated blood sugar Status: Acute Patient's blood sugar mildly elevated. Subjective Principal diagnosis: s/p cervical fusion, dysphagia, aspiration pneumonia Interval history: Patient seen and examined this morning. Patient states that he would like to leave AGAINST MEDICAL ADVICE. Patient is of sound mind and is able to answer questions appropriately. Patient is aware of the risks of leaving AGAINST MEDICAL ADVICE which include but are not limited to worsening current medical condition, pneumonia, respiratory distress, ultimately leading to morbidity and mortality. Patient states he does not want anymore swallow evaluations. Patient also states that he does not want any more interventions. Discussed extensively at bedside. Recommend that we can help with any assistance at the patient may have or any concerns the patient may have however he does not want to be an inpatient. Objective PUL Vital signs: Last Vital Signs Temp 98.7 F 09/09/17 03:44 Pulse 86 05/12/18 05:00 Resp 18 09/09/17 03:45 BP 128/70 09/09/17 00:50 Pulse Ox 97 09/09/17 03:45 General appearance: no acute distress Eyes: nonicteric ENT: oropharynx moist Neck: supple Effort: normal Cardiovascular: regular rate and rhythm Gastrointestinal: normoactive bowel sounds Integumentary: normal Extremities: no cyanosis Musculoskeletal: no deformities normal mental status Results - Laboratory Findings CBC and BMP: 09/09/17 04:00 09/09/17 04:00 ABG ABG pH 7.34 pH Units (7.32-7.45) 09/07/17 06:11 ABG pCO2 47 mmHg (35-45) H 09/07/17 06:11 ABG pO2 107 mmHg (85-104) H 09/07/17 06:11 ABG O2 Saturation 98 % (95-98) 09/07/17 06:11 PT/INR, D-dimer D-Dimer 1592 ng/mLFEU (0-500) H 08/31/17 16:35 Abnormal lab findings: Abnormal lab results WBC 12.4 K/mcL (4.3-11.1) H 09/09/17 04:00 RBC 3.30 M/mcL (4.19-5.50) L 09/09/17 04:00 Hgb 10.9 g/dL (12.9-16.9) L 09/09/17 04:00 Hct 32.8 % (37.5-50.1) L 09/09/17 04:00 Neutrophils # 9.6 K/mcL (1.6-8.9) H 09/09/17 04:00 Nucleated RBCs/100 WBC 0.2 /100 WBC (0) H 09/08/17 04:00 D-Dimer 1592 ng/mLFEU (0-500) H 08/31/17 16:35 ABG pCO2 47 mmHg (35-45) H 09/07/17 06:11 ABG pO2 107 mmHg (85-104) H 09/07/17 06:11 ABG Total CO2 27 mEq/L (20-26) H 09/07/17 06:11 Potassium 3.1 mEq/L (3.5-5.1) L 09/09/17 04:00 Carbon Dioxide 30 mEq/L (23-29) H 09/09/17 04:00 Creatinine 1.58 mg/dL (0.70-1.30) H 09/09/17 04:00 Est GFR ( Amer) 55 (> 60) L 09/09/17 04:00 Est GFR (Non-Af Amer) 45 (> 60) L 09/09/17 04:00 Glucose 163 mg/dL (70-105) H 09/09/17 04:00 POC Glucose 237 mg/dL (70-99) H 09/09/17 07:23 Calculated Osmolality 307 (280-300) H 09/09/17 04:00 Venous Ioniz Calcium 1.06 mmol/L (1.15-1.35) L 09/08/17 04:38 B-Natriuretic Peptide 170 pg/mL (Less than 100) H 08/31/17 16:35 Albumin 3.2 g/dL (3.5-5.7) L 09/07/17 13:00 Triglycerides 169 mg/dL (< 150) H 09/05/17 04:04 Urine Protein 30 mg/dL (Neg-Trace) H 09/06/17 09:30 Urine Microscopic RBC 5-15 per hpf (0-3) H 09/06/17 09:30 - Clinical Findings Intake & Output: Intake & Output 09/08/17 09/08/17 09/09/17 15:59 23:59 07:59 Intake Total 100 / 100 5700 / 5700 240 / 240 Output Total 3800 / 3800 1250 / 1250 750 / 750 Balance -3700 / -3700 4450 / 4450 -510 / -510 Weight 86.2 kg Consult Discharge Plan - Plan Additional Instructions: 1) you are leaving AGAINST MEDICAL ADVICE and you are at high risk of decompensation. You verbalize the risks of leaving his medical advice include but are not limited to aspiration pneumonia, respiratory failure requiring intubation AKA a breathing tube, hospitalization, morbidity and/or . You are also at risk of malnutrition and electrolyte derangements. You verbalize these risks and accept. Recommend that you follow-up with your provider's on Monday at the earliest. Return to the emergency department if you have any concerning symptoms. Referrals: [facility] [Provider Group] Parish Antunez Jr, MD [Partnered Physician] - Dieter Leonardo DO [Primary Care Provider] - Angella López MD [Partnered Physician] - <Pat Crook M - Last Filed: 09/11/17 07:57> Date of Encounter: 09/11/17 Objective PUL Vital signs: Last Vital Signs Temp 98.6 F 09/09/17 08:06 Pulse 84 09/09/17 08:00 Resp 18 09/09/17 07:00 BP 140/78 09/09/17 07:00 Pulse Ox 98 09/09/17 07:00 Results - Laboratory Findings CBC and BMP: 09/09/17 04:00 09/09/17 04:00 ABG ABG pH 7.34 pH Units (7.32-7.45) 09/07/17 06:11 ABG pCO2 47 mmHg (35-45) H 09/07/17 06:11 ABG pO2 107 mmHg (85-104) H 09/07/17 06:11 ABG O2 Saturation 98 % (95-98) 09/07/17 06:11 PT/INR, D-dimer D-Dimer 1592 ng/mLFEU (0-500) H 08/31/17 16:35 Abnormal lab findings: Abnormal lab results WBC 12.4 K/mcL (4.3-11.1) H 09/09/17 04:00 RBC 3.30 M/mcL (4.19-5.50) L 09/09/17 04:00 Hgb 10.9 g/dL (12.9-16.9) L 09/09/17 04:00 Hct 32.8 % (37.5-50.1) L 09/09/17 04:00 Neutrophils # 9.6 K/mcL (1.6-8.9) H 09/09/17 04:00 Nucleated RBCs/100 WBC 0.2 /100 WBC (0) H 09/08/17 04:00 D-Dimer 1592 ng/mLFEU (0-500) H 08/31/17 16:35 ABG pCO2 47 mmHg (35-45) H 09/07/17 06:11 ABG pO2 107 mmHg (85-104) H 09/07/17 06:11 ABG Total CO2 27 mEq/L (20-26) H 09/07/17 06:11 Potassium 3.1 mEq/L (3.5-5.1) L 09/09/17 04:00 Carbon Dioxide 30 mEq/L (23-29) H 09/09/17 04:00 Creatinine 1.58 mg/dL (0.70-1.30) H 09/09/17 04:00 Est GFR ( Amer) 55 (> 60) L 09/09/17 04:00 Est GFR (Non-Af Amer) 45 (> 60) L 09/09/17 04:00 Glucose 163 mg/dL (70-105) H 09/09/17 04:00 POC Glucose 237 mg/dL (70-99) H 09/09/17 07:23 Calculated Osmolality 307 (280-300) H 09/09/17 04:00 Venous Ioniz Calcium 1.06 mmol/L (1.15-1.35) L 09/08/17 04:38 B-Natriuretic Peptide 170 pg/mL (Less than 100) H 08/31/17 16:35 Albumin 3.2 g/dL (3.5-5.7) L 09/07/17 13:00 Triglycerides 169 mg/dL (< 150) H 09/05/17 04:04 Urine Protein 30 mg/dL (Neg-Trace) H 09/06/17 09:30 Urine Microscopic RBC 5-15 per hpf (0-3) H 09/06/17 09:30 - Attending Attestation Patient was seen and examined on 09/09/2017 with resident and his case was discussed in the MDR. I examined this patient and my medical decision-making was reviewed with the Resident Physician. I agree with the documented findings, disposition and treatment plan as described except to the extent set forth below. Patient is in no distress and he wants to go home. He was told he is still at risk of aspiration but he still wants to go home AGAINST MEDICAL ADVICE. Examination is unremarkable and he was advised to follow up with his primary care and also surgeon.
[2017-09-09 08:01] VITALS: BP 140/78
--- NOTE | 2017-09-09 08:07 | Physician Discharge Referral ---
<Anoop Galloway - Last Filed: 09/09/17 09:12> Home Health/Hosp Referral Info Transfer to: Home Health Attending Provider: Dr. Crook Provider in Charge Post Discharge: PCP - Diagnosis (1) Aspiration pneumonia Priority: Secondary Status: Acute (2) KRISTA (acute kidney injury) Priority: Secondary Status: Acute (3) Vocal cord paralysis Priority: Primary Status: Acute (4) HTN (hypertension) Priority: Secondary Status: Chronic (5) Status post cervical spinal fusion Priority: Secondary Status: Acute - Respiratory Orders Smoking Cessation: Smoking cessation has been advised. For more information, call the [place] Tobacco Quit Line at 9-483-XCWA-NOW. - Diet/Nutrition Diet/Nutrition: List: High aspiration risk. - Activity Activity Orders: Up ad demar - Services Needed Following services are medically necessary services: Nursing, Home Health Aide, Physical Therapy, Occupational Therapy, Speech Therapy Other Treatments: Skin checks related to the c-collar, vitals, nursing - Transfer Medications Home Medications: Dicyclomine [Bentyl] 20 mg PO TID 06/07/16 [History] Phenytoin ER [Dilantin ER] 200 mg PO BID 06/07/16 [History] Terazosin [Hytrin] 10 mg PO HS 06/07/16 [History] Acebutolol HCl 200 mg PO HS 08/15/16 [History] Amlodipine Besylate/Benazepril [Lotrel 10-40 mg Capsule] 1 tab PO DAILY [History] Doxepin HCl 200 mg PO HS 08/15/16 [History] diazePAM [Valium] 10 mg PO TID PRN 08/15/16 [History] hydroCHLOROthiazide [Hydrochlorothiazide] 25 mg PO DAILY 08/15/16 [History] Escitalopram [Lexapro] 20 mg PO DAILY 08/29/17 [History] hydrOXYzine HCl [Hydroxyzine HCl] 25 - 50 mg PO HS PRN 08/29/17 [History] OxyCODONE Immed Rel [Roxicodone 5 MG] 5 mg PO Q6H PRN 7 Days #28 tablet [Rx] Allergies/Adverse Reactions: 3 Allergy/AdvReac Type Severity Reaction Status Date / Time bupropion Allergy Seizure Verified 08/29/17 08:52 NSAIDS (Non-Steroidal Allergy Gastrointestinal Verified 08/29/17 08:52 Anti-Inflamma Upset ibuprofen [From Motrin] AdvReac Gastrointestinal Verified 08/29/17 08:52 Upset Certification: Further, I certify that my clinical findings support that this patient is homebound (i.e. absences from home require considerable and taxing effort and are for medical reasons or bahai services or infrequently or short duration when for other reasons) because: Homebound Reason: Patient requires assistance of a person or device to safely leave home, Leaving home requires considerable and taxing effort due to condition Attestation: My signature below is to certify that this patient is under my care and that I, or nurse practitioner, or a physician's graduate teaching assistant working with me, has a face-to -face encounter with this patient. <Pat Crook - Last Filed: 09/11/17 07:53> - Respiratory Orders Smoking Cessation: Smoking cessation has been advised. For more information, call the [place] Tobacco Quit Line at 4-262-FQPU-NOW. Certification: Further, I certify that my clinical findings support that this patient is homebound (i.e. absences from home require considerable and taxing effort and are for medical reasons or bahai services or infrequently or short duration when for other reasons) because: Attestation: My signature below is to certify that this patient is under my care and that I, or nurse practitioner, or a physician's graduate teaching assistant working with me, has a face-to -face encounter with this patient. Patient was discharged home and against medical advise and he understand because of risk of aspiration and he still need help.
--- NOTE | 2017-09-09 08:47 | Discharge Summary ---
<Pat Crook M - Last Filed: 09/09/17 09:00> Orders not resulted at time of discharge: Pending orders 09/06/17 15:14 Surgical Pathology [PTH] Routine 09/10/17 04:00 Basic Metabolic Panel AM 0400 Magnesium AM 0400 Phosphorous AM 0400 09/11/17 04:00 Basic Metabolic Panel AM 0400 Magnesium AM 0400 Phosphorous AM 0400 Date of Encounter: 09/09/17 - Discharge Medications Home Medications: Dicyclomine [Bentyl] 20 mg PO TID 06/07/16 [History] Phenytoin ER [Dilantin ER] 200 mg PO BID 06/07/16 [History] Terazosin [Hytrin] 10 mg PO HS 06/07/16 [History] Acebutolol HCl 200 mg PO HS 08/15/16 [History] Amlodipine Besylate/Benazepril [Lotrel 10-40 mg Capsule] 1 tab PO DAILY [History] Doxepin HCl 200 mg PO HS 08/15/16 [History] diazePAM [Valium] 10 mg PO TID PRN 08/15/16 [History] hydroCHLOROthiazide [Hydrochlorothiazide] 25 mg PO DAILY 08/15/16 [History] Escitalopram [Lexapro] 20 mg PO DAILY 08/29/17 [History] hydrOXYzine HCl [Hydroxyzine HCl] 25 - 50 mg PO HS PRN 08/29/17 [History] OxyCODONE Immed Rel [Roxicodone 5 MG] 5 mg PO Q6H PRN 7 Days #28 tablet [Rx] Allergies/Adverse Reactions: 3 Allergy/AdvReac Type Severity Reaction Status Date / Time bupropion Allergy Seizure Verified 08/29/17 08:52 NSAIDS (Non-Steroidal Allergy Gastrointestinal Verified 08/29/17 08:52 Anti-Inflamma Upset ibuprofen [From Motrin] AdvReac Gastrointestinal Verified 08/29/17 08:52 Upset Labs on day of discharge: Labs from last 24 hours 09/09/17 09/09/17 09/09/17 07:23 04:00 04:00 WBC 12.4 H RBC 3.30 L Hgb 10.9 L Hct 32.8 L MCV 99.4 MCH 33.0 MCHC 33.2 RDW 13.4 Plt Count 283 MPV 9.9 Immature Gran % 1.2 Seg Neutrophils % 77.4 Lymphocytes % 12.0 Monocytes % 7.6 Eosinophils % 1.3 Basophils % 0.5 Neutrophils # 9.6 H Lymphocytes # 1.5 Monocytes # 1.0 Eosinophils # 0.2 Basophils # 0.1 Sodium 145 Potassium 3.1 L Chloride 106 Carbon Dioxide 30 H BUN 23 Creatinine 1.58 H Est GFR ( Amer) 55 L Est GFR (Non-Af Amer) 45 L BUN/Creatinine Ratio 15 Glucose 163 H POC Glucose 237 H Calculated Osmolality 307 H Calcium 8.9 Phosphorus 3.6 Magnesium 1.7 09/09/17 09/08/17 09/08/17 03:46 23:40 19:10 WBC RBC Hgb Hct MCV MCH MCHC RDW Plt Count MPV Immature Gran % Seg Neutrophils % Lymphocytes % Monocytes % Eosinophils % Basophils % Neutrophils # Lymphocytes # Monocytes # Eosinophils # Basophils # Sodium Potassium Chloride Carbon Dioxide BUN Creatinine Est GFR ( Amer) Est GFR (Non-Af Amer) BUN/Creatinine Ratio Glucose POC Glucose 136 H 170 H 131 H Calculated Osmolality Calcium Phosphorus Magnesium 09/08/17 09/08/17 17:08 12:38 WBC RBC Hgb Hct MCV MCH MCHC RDW Plt Count MPV Immature Gran % Seg Neutrophils % Lymphocytes % Monocytes % Eosinophils % Basophils % Neutrophils # Lymphocytes # Monocytes # Eosinophils # Basophils # Sodium Potassium Chloride Carbon Dioxide BUN Creatinine Est GFR ( Amer) Est GFR (Non-Af Amer) BUN/Creatinine Ratio Glucose POC Glucose 183 H 128 H Calculated Osmolality Calcium Phosphorus Magnesium - Impressions ITS Impressions Videofluoroscopic Swallow 09/01/17 08:53 IMPRESSION: 1. Residue that vallecular with applesauce consistency barium. No evidence of aspiration. 2. Laryngeal penetration and aspiration with the thin barium. 3. Laryngeal penetration, with possible aspiration with nectar and honey thick barium. 4. Prevertebral edema in setting of recent cervical spine surgery. 5. Please see separate speech pathology report for full discussion of findings and recommendations. D/ / Gera Begum MD / Gera Begum MD Interpreting Provider: Gera Begum MD Soft Tissue Neck CT 09/01/17 16:56 IMPRESSION: 1. The patient has scattered opacities in the included lungs consistent with fairly extensive airspace disease. 2. Enlarged lymph node adjacent to the left submandibular gland. 3. Soft tissue density in the left parapharyngeal space of 1.9 x 2 x 1.9 cm without air bubbles. This may represent small phlegmon. Lack of IV contrast limits assessment for abscess. D/ / 09/01/2017 17:55:31 Carla Barry MD / [facility] Interpreting Provider: Carla Barry MD Chest X-Ray 09/06/17 16:11 IMPRESSION: 1. The endotracheal tube has its tip 4.3 cm above the cailin. 2. A right PICC has its tip at the cavoatrial junction. 3. Central vascular congestion and left basilar atelectasis. New right basilar volume loss. D/ / 09/06/2017 18:33:30 Petros Salter MD / [facility] Interpreting Provider: Petros Salter MD Videofluoroscopic Swallow 09/08/17 09:58 IMPRESSION: The examination was positive for aspiration with both honey thick barium by cup and nectar thick barium by spoon. Please see separate speech pathology report for full discussion of findings and recommendations. D/ / 09/08/2017 13:33:44 Petros Salter MD / [facility] Interpreting Provider: Petros Salter MD Date of admission: 08/31/17 20:21 Primary care physician: Dieter Leonardo DO Consults: 09/01/17 09:56 Consult to [employer] [CONS] Routine Reason for SW Consult: Anitra aware and to see 09/04/17 11:28 Consult to Invasive Line Access Team [CONS] Routine Reason for Consult: PICC Line for TPN Line Type: PICC Consult to Nutrition [CONS] Routine Comment: Consulting Provider: NUTRITION Reason for Dietary Consult: TPN Start and Manage 09/04/17 14:55 Consult to ENT [CONS] Routine Consulting Provider: [facility] Reason for Consult: Phlegmon vs. abscess in left parapharyngeal space Time Notified: 14:56 Call Completed: Yes 09/04/17 16:22 Consult to Invasive Line Access Team [CONS] Routine Reason for Consult: Picc Line Insertion Line Type: PICC 09/05/17 10:13 Consult to Gastroenterology [CONS] Routine Consulting Provider: [facility] Reason for Consult: enteral feedings Time Notified: 10:14 Call Completed: Yes 09/06/17 15:55 Consult to Critical Care [CONS] Stat Consulting Provider: Pulm Crit Care [facility] Reason for Consult: Acute hypoxic respiratory failure Call Completed: Yes 09/08/17 09:29 Consult to Speech Therapy [CONS] Routine Comment: Evaluate, develop and implement POC Reason for Consult: Aspiration, vocal cord paralysis Call Completed: No - Patient Status Disposition: Left Against Medical Advice Condition: Fair - Discharge Instructions Follow Up With: Dieter Leonardo DO [Primary Care Provider] - Angella López MD [Partnered Physician] - [facility] [Provider Group] Parish Antunez Jr, MD [Partnered Physician] - Additional Instructions: 1) you are leaving AGAINST MEDICAL ADVICE and you are at high risk of decompensation. You verbalize the risks of leaving his medical advice include but are not limited to aspiration pneumonia, respiratory failure requiring intubation AKA a breathing tube, hospitalization, morbidity and/or . You are also at risk of malnutrition and electrolyte derangements. You verbalize these risks and accept. Recommend that you follow-up with your provider's on Monday at the earliest. Return to the emergency department if you have any concerning symptoms. - Hospital Course Hospital course: Mr. Mcgarry is a 62 year old male - Time Spent with Patient Total time spent providing and/or coordinating discharge services: Physical Examination Vital Signs: Vital Signs, Last 4 Hours Temp Pulse Resp BP Pulse Ox 09/09/17 08:06 98.6 F 09/09/17 08:00 84 09/09/17 07:00 98.6 F 82 18 140/78 98 - Attending Attestation I examined this patient and my medical decision-making was reviewed with the Resident Physician. I agree with the documented findings, disposition and treatment plan as described except to the extent set forth below. Patient is asking to go home and he still have his main problem has not been corrected and this was explained to him in detail in the presence of the nurse with the resident in the room. I have told him his high risk of aspiration and he understand that and I have told him he needs to wait and tell hopefully his condition will improve, but he does not want to wait in the hospital anymore and he is alert and oriented 3. Advised him to follow-up with his primary care as soon as possible and also offered him another speech evaluation but he declined. I am very concerned about heme, however patient understand consequences and he understand it could be dangerous to his health, but is willing to take the risk and he will sign AGAINST MEDICAL ADVICE. Advised him to follow-up with his surgeon as well and ENT. <Anoop Galloway - Last Filed: 09/09/17 09:17> - NOTES TO OUTPATIENT PROVIDER Notes to Outpatient Provider: Patient left AGAINST MEDICAL ADVICE, patient is an aspiration risk. Patient will need the following including speech therapy, PT OT, dietary and nutrition. Orders not resulted at time of discharge: Pending orders 09/06/17 15:14 Surgical Pathology [PTH] Routine 09/10/17 04:00 Basic Metabolic Panel AM 0400 Magnesium AM 0400 Phosphorous AM 0400 09/11/17 04:00 Basic Metabolic Panel AM 0400 Magnesium AM 0400 Phosphorous AM 0400 Date of Encounter: 09/09/17 Time of Encounter: 08:52 - Discharge Diagnosis (1) Aspiration pneumonia Priority: Secondary Status: Acute Qualifiers: Aspiration pneumonia type: unspecified Laterality: unspecified laterality Lung location: unspecified part of lung Qualified Code(s): J69.0 - Pneumonitis due to inhalation of food and vomit (2) KRISTA (acute kidney injury) Priority: Secondary Status: Acute (3) Vocal cord paralysis Priority: Secondary Status: Acute (4) HTN (hypertension) Priority: Secondary Status: Chronic Qualifiers: Hypertension type: essential hypertension Qualified Code(s): I10 - Essential (primary) hypertension (5) Status post cervical spinal fusion Priority: Secondary Status: Acute (6) Elevated blood sugar Priority: Secondary Status: Acute Labs on day of discharge: Labs from last 24 hours 09/09/17 09/09/17 09/09/17 07:23 04:00 04:00 WBC 12.4 H RBC 3.30 L Hgb 10.9 L Hct 32.8 L MCV 99.4 MCH 33.0 MCHC 33.2 RDW 13.4 Plt Count 283 MPV 9.9 Immature Gran % 1.2 Seg Neutrophils % 77.4 Lymphocytes % 12.0 Monocytes % 7.6 Eosinophils % 1.3 Basophils % 0.5 Neutrophils # 9.6 H Lymphocytes # 1.5 Monocytes # 1.0 Eosinophils # 0.2 Basophils # 0.1 Sodium 145 Potassium 3.1 L Chloride 106 Carbon Dioxide 30 H BUN 23 Creatinine 1.58 H Est GFR ( Amer) 55 L Est GFR (Non-Af Amer) 45 L BUN/Creatinine Ratio 15 Glucose 163 H POC Glucose 237 H Calculated Osmolality 307 H Calcium 8.9 Phosphorus 3.6 Magnesium 1.7 09/09/17 09/08/17 09/08/17 03:46 23:40 19:10 WBC RBC Hgb Hct MCV MCH MCHC RDW Plt Count MPV Immature Gran % Seg Neutrophils % Lymphocytes % Monocytes % Eosinophils % Basophils % Neutrophils # Lymphocytes # Monocytes # Eosinophils # Basophils # Sodium Potassium Chloride Carbon Dioxide BUN Creatinine Est GFR ( Amer) Est GFR (Non-Af Amer) BUN/Creatinine Ratio Glucose POC Glucose 136 H 170 H 131 H Calculated Osmolality Calcium Phosphorus Magnesium 09/08/17 09/08/17 17:08 12:38 WBC RBC Hgb Hct MCV MCH MCHC RDW Plt Count MPV Immature Gran % Seg Neutrophils % Lymphocytes % Monocytes % Eosinophils % Basophils % Neutrophils # Lymphocytes # Monocytes # Eosinophils # Basophils # Sodium Potassium Chloride Carbon Dioxide BUN Creatinine Est GFR ( Amer) Est GFR (Non-Af Amer) BUN/Creatinine Ratio Glucose POC Glucose 183 H 128 H Calculated Osmolality Calcium Phosphorus Magnesium - Impressions ITS Impressions Videofluoroscopic Swallow 09/01/17 08:53 IMPRESSION: 1. Residue that vallecular with applesauce consistency barium. No evidence of aspiration. 2. Laryngeal penetration and aspiration with the thin barium. 3. Laryngeal penetration, with possible aspiration with nectar and honey thick barium. 4. Prevertebral edema in setting of recent cervical spine surgery. 5. Please see separate speech pathology report for full discussion of findings and recommendations. D/ / Gera Begum MD / Gera Begum MD Interpreting Provider: Gera Begum MD Soft Tissue Neck CT 09/01/17 16:56 IMPRESSION: 1. The patient has scattered opacities in the included lungs consistent with fairly extensive airspace disease. 2. Enlarged lymph node adjacent to the left submandibular gland. 3. Soft tissue density in the left parapharyngeal space of 1.9 x 2 x 1.9 cm without air bubbles. This may represent small phlegmon. Lack of IV contrast limits assessment for abscess. D/ / 09/01/2017 17:55:31 Carla Barry MD / [facility] Interpreting Provider: Carla Barry MD Chest X-Ray 09/06/17 16:11 IMPRESSION: 1. The endotracheal tube has its tip 4.3 cm above the cailin. 2. A right PICC has its tip at the cavoatrial junction. 3. Central vascular congestion and left basilar atelectasis. New right basilar volume loss. D/ / 09/06/2017 18:33:30 Petros Salter MD / [facility] Interpreting Provider: Petros Salter MD Videofluoroscopic Swallow 09/08/17 09:58 IMPRESSION: The examination was positive for aspiration with both honey thick barium by cup and nectar thick barium by spoon. Please see separate speech pathology report for full discussion of findings and recommendations. D/ / 09/08/2017 13:33:44 Petros Salter MD / [facility] Interpreting Provider: Petros Salter MD Date of admission: 08/31/17 20:21 Primary care physician: Dieter Leonardo DO Consults: 09/01/17 09:56 Consult to [employer] [CONS] Routine Reason for SW Consult: Anitra escalera and to see 09/04/17 11:28 Consult to Invasive Line Access Team [CONS] Routine Reason for Consult: PICC Line for TPN Line Type: PICC Consult to Nutrition [CONS] Routine Comment: Consulting Provider: NUTRITION Reason for Dietary Consult: TPN Start and Manage 09/04/17 14:55 Consult to ENT [CONS] Routine Consulting Provider: [facility] Reason for Consult: Phlegmon vs. abscess in left parapharyngeal space Time Notified: 14:56 Call Completed: Yes 09/04/17 16:22 Consult to Invasive Line Access Team [CONS] Routine Reason for Consult: Picc Line Insertion Line Type: PICC 09/05/17 10:13 Consult to Gastroenterology [CONS] Routine Consulting Provider: [facility] Reason for Consult: enteral feedings Time Notified: 10:14 Call Completed: Yes 09/06/17 15:55 Consult to Critical Care [CONS] Stat Consulting Provider: Pulm Crit [facility] Reason for Consult: Acute hypoxic respiratory failure Call Completed: Yes 09/08/17 09:29 Consult to Speech Therapy [CONS] Routine Comment: Evaluate, develop and implement POC Reason for Consult: Aspiration, vocal cord paralysis Call Completed: No Discharging clinician: Anoop Galloway Anticipated date of discharge: 09/09/17 - Patient Status Functional capacity at discharge: independent ambulation Overall status at discharge: patient is progressing back to baseline - Diet and Activity Diet: other (You are leaving AGAINST MEDICAL ADVICE and you are an aspiration risk.) - Hospital Course Hospital course: Mr. Mcgarry is a 62 year old male who had a recent spinal fusion with secondary vocal cord paralysis and was evaluated by ENT. Patient was admitted for nutritional status and hypoxemic respiratory failure due to likely vocal cord paralysis. Patient was evaluated by speech therapy and thought to be a high aspiration risk. Long-term nutrition with discussed and patient declined a Dobbhoff. Patient subsequently attempted a patent 2 by GI however during the procedure the PEG tube could not be placed. Patient was covered for aspiration pneumonia. Patient remained in the ICU in stable condition anticipating transfer to the floor however during the patient's ICU stay the patient declined any further interventions. The patient stated that he wanted to go home. Patient did not give a specific reason why he wanted to go home however did verbalize the risks which included worsening current medical condition, aspiration risk, aspiration pneumonia, respiratory failure, electrolyte derangement, morbidity and/or . Patient was offered several resources however the patient left prior to signing of his paperwork. Patient was of sound mind and did verbalize his day, date of the time. Patient did verbalize the risks involved. Attempted to get a hold of social work provide outpatient home health aide, nursing assistance. Patient was instructed to follow-up with his primary care doctor as well as other outpatient providers as discussed in the discharge. - Time Spent with Patient Total time spent providing and/or coordinating discharge services: Physical Examination Vital Signs: Vital Signs, Last 4 Hours Temp Pulse Resp BP Pulse Ox 09/09/17 08:06 98.6 F 09/09/17 08:00 84 09/09/17 07:00 98.6 F 82 18 140/78 98 09/09/17 05:00 86 General appearance: no acute distress Eyes: nonicteric ENT: oropharynx moist Neck: supple, other (No signs of skin breakdown due to the recent c-collar.) Effort: normal Inspection: normal Cardiovascular: regular rate and rhythm Gastrointestinal: normoactive bowel sounds Integumentary: normal Extremities: no cyanosis Musculoskeletal: no deformities normal mental status, non-focal exam, CN II-XII normal mood appropriate
[2017-09-09] MEDS ORDERED: Clinimix E 5%-15% SOLUTION 2,000 ML with MVI, adult with vitamin K 10 ML IVC SCH (17:00)
[2017-09-10] MEDS ORDERED: Clinimix E 5%-15% SOLUTION 2,000 ML with MVI, adult with vitamin K 10 ML IVC SCH (17:00)
== END 2017-09-09 08:25 | disposition left against medical advice (07) | DRG 208 ==
LOC: EMEROO 16:26 → 2NENU 16:26 → SUATTDRO 20:21 → 2NENU 20:45 → ICNU 09-06 16:04
PROVIDERS: ADMIT Internal Medicine; ATTEND Internal Medicine

== ENCOUNTER 2019-10-20 14:41 | Observation (INO) ==
[2019-10-20 15:07] LABS: Basophils # 0.1 K/mcL (0.0-0.2); Basophils % 0.6 %; Eosinophils # 0.1 K/mcL (0.0-0.6); Eosinophils % 1.8 %; Hematocrit 42.8 % (37.5-50.1); Hemoglobin 14.7 g/dL (12.9-16.9); Immature Granulocytes % 0.9 % (0-4); Lymphocytes # 1.5 K/mcL (0.6-4.6); Lymphocytes % 18.8 %; Mean Corpuscular HGB Conc 34.3 g/dL (31.6-35.5); Mean Corpuscular Hemoglobin 33.3 pg (28.0-33.3); Mean Corpuscular Volume 96.8 fL (83.0-100.0); Mean Platelet Volume 9.4 fL (9.4-12.4); Monocytes # 0.7 K/mcL (0.0-1.3); Monocytes % 8.8 %; Neutrophils # 5.5 K/mcL (1.6-8.9); Platelet Count 257 K/mcL (140-400); Red Blood Count 4.42 M/mcL (4.19-5.50); Red Cell Distribution Width 12.6 % (11.5-14.5); Segmented Neutrophils % 69.1 %; White Blood Count 7.9 K/mcL (4.3-11.1)
[2019-10-20 15:17] LABS: Prothrombin Time 11.6 Seconds (9.4-12.1)
[2019-10-20 15:20] LABS: Activated Partial Thrombo Time 30.4 Seconds (26.0-36.0)
[2019-10-20 15:31] LABS: BUN/Creatinine Ratio 11 (6-26); Blood Urea Nitrogen 16 mg/dL (8-23); Calcium 9.2 mg/dL (8.6-10.3); Carbon Dioxide 27 mEq/L (23-29); Chloride 103 mEq/L (98-107); Glucose 135 mg/dL (70-105); Osmolality,Calculated 291 (280-300); Potassium 3.6 mEq/L (3.5-5.1); Sodium 139 mEq/L (136-145); Troponin I < 0.03 ng/mL (< 0.04); eGFR For African Americans > 60 (> 60); eGFR For Non-African Americans 51 (> 60)
[2019-10-20] MEDS ORDERED: 0.9 % Sodium Chloride 1,000 ML IVC STA (15:54)
[2019-10-20] MEDS ORDERED: Aspirin 81 MG TAB.CHEW PO STA ×2 (15:55→16:18)
[2019-10-20] MEDS ORDERED: Nitroglycerin 0.4 MG TAB.SUBL SL PRN (17:21)
[2019-10-20] MEDS ORDERED: Ondansetron 4 MG/2 ML VIAL IVP PRN (17:21)
[2019-10-20 18:56] LABS: Bilirubin,Urine Negative (Negative); Blood,Urine Negative (Negative); Clarity,Urine Clear (Clear); Color,Urine Light-Yellow (Yellow); Glucose,Urine (UA) Normal (Normal); Ketones,Urine Negative (Negative); Leukocyte Esterase,Urine Negative (Negative); Nitrite,Urine Negative (Negative); PH,Urine 5.5 pH Units (5.0-8.0); Protein,Urine Negative (Neg-Trace); Specific Gravity,Urine 1.019 (1.010-1.025); Urobilinogen,Urine Normal (Normal)
[2019-10-20] MEDS ORDERED: Mirtazapine 15 MG TABLET PO SCH (21:00)
[2019-10-20] MEDS ORDERED: OLANZapine 10 MG TAB.RAPDIS PO SCH (21:00)
[2019-10-20] MEDS ORDERED: traZODone 50 MG TABLET PO SCH (21:00)
[2019-10-20] MEDS: Simethicone 80 MG TAB.CHEW PO SCH (21:57)
[2019-10-21 04:02] LABS: Basophils # 0.1 K/mcL (0.0-0.2); Basophils % 0.6 %; Eosinophils # 0.2 K/mcL (0.0-0.6); Eosinophils % 2.9 %; Hematocrit 41.1 % (37.5-50.1); Hemoglobin 13.8 g/dL (12.9-16.9); Immature Granulocytes % 0.8 % (0-4); Lymphocytes # 2.2 K/mcL (0.6-4.6); Lymphocytes % 27.3 %; Mean Corpuscular HGB Conc 33.6 g/dL (31.6-35.5); Mean Corpuscular Hemoglobin 33.4 pg (28.0-33.3); Mean Corpuscular Volume 99.5 fL (83.0-100.0); Mean Platelet Volume 9.7 fL (9.4-12.4); Monocytes # 0.9 K/mcL (0.0-1.3); Monocytes % 10.9 %; Neutrophils # 4.6 K/mcL (1.6-8.9); Platelet Count 206 K/mcL (140-400); Red Blood Count 4.13 M/mcL (4.19-5.50); Red Cell Distribution Width 12.7 % (11.5-14.5); Segmented Neutrophils % 57.5 %; White Blood Count 7.9 K/mcL (4.3-11.1)
[2019-10-21 04:06] LABS: Prothrombin Time 11.4 Seconds (9.4-12.1)
[2019-10-21 04:22] LABS: Alanine Aminotransferase 20 Units/L (7-52); Albumin 3.8 g/dL (3.5-5.7); Albumin/Globulin Ratio 1.5 (1.1-2.2); Alkaline Phosphatase 117 Units/L (34-104); Aspartate Amino Transferase 19 Units/L (13-39); BUN/Creatinine Ratio 15 (6-26); Bilirubin,Total 0.4 mg/dL (0.3-1.0); Blood Urea Nitrogen 16 mg/dL (8-23); Carbon Dioxide 25 mEq/L (23-29); Chloride 105 mEq/L (98-107); Globulin 2.5 g/dL (2.4-3.5); Glucose 105 mg/dL (70-105); Magnesium 1.6 mg/dL (1.6-2.6); Osmolality,Calculated 288 (280-300); Potassium 3.9 mEq/L (3.5-5.1); Sodium 138 mEq/L (136-145); Total Protein 6.3 g/dL (6.4-8.9); eGFR For African Americans > 60 (> 60); eGFR For Non-African Americans > 60 (> 60)
[2019-10-21] MEDS: Simethicone 80 MG TAB.CHEW PO SCH (08:57)
[2019-10-21] MEDS ORDERED: hydroCHLOROthiazide 25 MG TABLET PO SCH (09:00)
[2019-10-21] MEDS ORDERED: Folic Acid 1 MG TABLET PO SCH (09:00)
[2019-10-21 10:32] VITALS: BP 119/81
== END 2019-10-21 11:16 | disposition home or self-care (01) ==
LOC: 3BNU 14:41 → EMEROOARM 14:41 → SUATTDRO 16:29 → 3BNU 17:42
PROVIDERS: ADMIT Pharmacist; ATTEND Internal Medicine

== ENCOUNTER 2020-06-23 11:37 | Observation (INO) ==
[2020-06-23] MEDS ORDERED: Ondansetron 4 MG/2 ML VIAL IVP ONE (12:19)
[2020-06-23] MEDS ORDERED: Morphine Sulfate 2 MG/ML SYRINGE IVP ONE (12:19)
[2020-06-23] MEDS ORDERED: 0.9 % Sodium Chloride 1,000 ML IVC ONE (12:19)
[2020-06-23] MEDS ORDERED: Isovue-370 500 ML BOTTLE IVP ONE (12:19)
[2020-06-23 13:26] LABS: Basophils % 0.3 %; Eosinophils % 0.4 %; Hemoglobin 13.5 g/dL (12.9-16.9); Immature Granulocytes % 0.8 % (0-4); Lymphocytes # 1.3 K/mcL (0.6-4.6); Lymphocytes % 13.2 %; Mean Corpuscular HGB Conc 34.6 g/dL (31.6-35.5); Mean Corpuscular Hemoglobin 34.3 pg (28.0-33.3); Mean Platelet Volume 9.9 fL (9.4-12.4); Monocytes # 1.4 K/mcL (0.0-1.3); Monocytes % 13.6 %; Neutrophils # 7.2 K/mcL (1.6-8.9); Platelet Count 252 K/mcL (140-400); Red Blood Count 3.94 M/mcL (4.19-5.50); Red Cell Distribution Width 12.2 % (11.5-14.5); Segmented Neutrophils % 71.7 %; White Blood Count 10.1 K/mcL (4.3-11.1)
[2020-06-23 13:49] LABS: Albumin 3.8 g/dL (3.5-5.7); Albumin/Globulin Ratio 1.2 (1.1-2.2); Bilirubin,Direct 0.2 mg/dL (0.0-0.2); Bilirubin,Indirect 0.1 mg/dL (0.0-1.0); Bilirubin,Total 0.3 mg/dL (0.3-1.0); Calcium 9.1 mg/dL (8.6-10.3); Globulin 3.3 g/dL (2.4-3.5); Potassium 3.1 mEq/L (3.5-5.1); Total Protein 7.1 g/dL (6.4-8.9)
[2020-06-23 14:47] LABS: Bilirubin,Urine Negative (Negative); Blood,Urine Negative (Negative); Clarity,Urine Clear (Clear); Color,Urine Yellow (Yellow); Glucose,Urine (UA) Normal (Normal); Ketones,Urine Negative (Negative); Leukocyte Esterase,Urine Negative (Negative); Nitrite,Urine Negative (Negative); Protein,Urine Trace mg/dL (Neg-Trace); Specific Gravity,Urine 1.027 (1.010-1.025)
[2020-06-23] MEDS ORDERED: *HR* HYDROmorphone (PF) 1 MG/ML SYRINGE IVP ONE (15:26)
[2020-06-23] MEDS ORDERED: Naloxone 0.4 MG/ML INJ IVP PRN (16:46)
[2020-06-23] MEDS ORDERED: diazePAM 10 MG TABLET PO PRN (17:18)
[2020-06-23] MEDS ORDERED: Nitroglycerin 0.4 MG TAB.SUBL SL PRN (17:18)
[2020-06-23] MEDS ORDERED: Simethicone 80 MG TAB.CHEW PO PRN (17:18)
[2020-06-23] MEDS ORDERED: 0.9 % Sodium Chloride 1,000 ML IVC SCH (17:45)
[2020-06-23] MEDS ORDERED: Latanoprost 2.5 ML BOTTLE BOTH EYES SCH (21:00)
[2020-06-23] MEDS ORDERED: OLANZapine 10 MG TAB.RAPDIS PO SCH (21:00)
[2020-06-23] MEDS ORDERED: QUEtiapine Fumarate 100 MG TABLET PO SCH (21:00)
[2020-06-23] MEDS: *HR* HYDROmorphone (PF) 1 MG/ML SYRINGE IVP PRN (21:58)
[2020-06-23] MEDS: Piperacillin/Tazobactam 3.375 GM in 0.9 % Sodium Chloride Mini Bag 100 ML IVPB SCH (22:00)
[2020-06-23] MEDS: *HR* Heparin 5,000 UNIT/ML VIAL SQ SCH (22:01)
[2020-06-24] MEDS: Piperacillin/Tazobactam 3.375 GM in 0.9 % Sodium Chloride Mini Bag 100 ML IVPB SCH ×3 (03:39→18:30)
[2020-06-24 04:34] LABS: Basophils % 0.5 %; Eosinophils # 0.1 K/mcL (0.0-0.6); Eosinophils % 1.1 %; Hematocrit 37.5 % (37.5-50.1); Hemoglobin 12.9 g/dL (12.9-16.9); Immature Granulocytes % 0.5 % (0-4); Lymphocytes # 2.2 K/mcL (0.6-4.6); Lymphocytes % 29.6 %; Mean Corpuscular HGB Conc 34.4 g/dL (31.6-35.5); Mean Corpuscular Hemoglobin 34.5 pg (28.0-33.3); Mean Corpuscular Volume 100.3 fL (83.0-100.0); Mean Platelet Volume 10.1 fL (9.4-12.4); Monocytes # 1.1 K/mcL (0.0-1.3); Monocytes % 15.3 %; Neutrophils # 3.9 K/mcL (1.6-8.9); Platelet Count 232 K/mcL (140-400); Red Blood Count 3.74 M/mcL (4.19-5.50); Red Cell Distribution Width 12.2 % (11.5-14.5); White Blood Count 7.4 K/mcL (4.3-11.1)
[2020-06-24 04:58] LABS: BUN/Creatinine Ratio 16 (6-26); Blood Urea Nitrogen 22 mg/dL (8-23); Carbon Dioxide 26 mEq/L (23-29); Chloride 103 mEq/L (98-107); Glucose 105 mg/dL (70-105); Osmolality,Calculated 292 (280-300); Potassium 3.5 mEq/L (3.5-5.1); Sodium 139 mEq/L (136-145); eGFR For African Americans > 60 (> 60); eGFR For Non-African Americans 52 (> 60)
[2020-06-24] MEDS: *HR* HYDROmorphone (PF) 1 MG/ML SYRINGE IVP PRN (05:08)
[2020-06-24] MEDS: *HR* Heparin 5,000 UNIT/ML VIAL SQ SCH ×4 (05:09→21:39)
[2020-06-24 06:00] LABS: Influenza A PCR Negative (Negative); Influenza B PCR Negative (Negative); Resp. Syncytial Virus PCR Negative (Negative)
[2020-06-24 06:02] LABS: SARS-CoV-2 by PCR (In House) Negative (Negative)
[2020-06-24] MEDS ORDERED: cefOXitin 1,000 MG, 0.9 % Sodium Chloride 1,000 ML IR ONE (07:00)
[2020-06-24] MEDS ORDERED: Isovue-300 50ML VIAL ONE (07:27)
[2020-06-24] MEDS ORDERED: *HR* FentaNYL (PF) 100 MCG/2 ML VIAL ONE (07:38)
[2020-06-24] MEDS ORDERED: *HR* Midazolam HCl 2 MG/2 ML VIAL ONE (07:38)
[2020-06-24] MEDS ORDERED: *HR* Propofol 200 MG/20 ML VIAL IVP ONE (07:38)
[2020-06-24] MEDS ORDERED: Lidocaine -MPF 2% 2 ML VIAL ONE (07:39)
[2020-06-24] MEDS ORDERED: Lidocaine HCL 4 ML Topical Solution (Laryng-O-Jet Kit Sterile Pak) TP ONE ×2 (07:40→08:40)
[2020-06-24] MEDS ORDERED: *HR* Rocuronium Bromide 50 MG/5 ML VIAL ONE (07:40)
[2020-06-24] MEDS ORDERED: Promethazine 6.25 MG in Water for inj. (sterile) 20 ML IVPB PRN ×2 (07:49→10:55)
[2020-06-24] MEDS ORDERED: Ondansetron 4 MG/2 ML VIAL IVP PRN (07:49)
[2020-06-24] MEDS ORDERED: *HR* HYDROmorphone PF 0.5 MG/0.5 ML SYRINGE IVP PRN (07:49)
[2020-06-24] MEDS ORDERED: *HR* OxyCODONE Immed Rel 5 MG TABLET PO PRN (07:49)
[2020-06-24] MEDS ORDERED: *HR* Succinylcholine 200 MG/10 ML VIAL IVP ONE (08:39)
[2020-06-24] MEDS ORDERED: Ondansetron 4 MG/2 ML VIAL ONE (08:52)
[2020-06-24] MEDS ORDERED: Folic Acid 1 MG TABLET PO SCH (09:00)
[2020-06-24] MEDS ORDERED: (Vortioxetine Hydrobromide [Trintellix] 10 MG Tablet) PO SCH (09:00)
[2020-06-24] MEDS ORDERED: Cyanocobalamin (B-12) 1,000 MCG TABLET PO SCH (09:00)
[2020-06-24] MEDS ORDERED: Sugammadex Sodium 200 MG/2 ML VIAL IV ONE (09:37)
[2020-06-24] MEDS ORDERED: *HR* HYDROMORPHONE 2 MG/ML VIAL ONE (09:46)
[2020-06-24] MEDS ORDERED: Simethicone 80 MG TAB.CHEW PO PRN (10:55)
[2020-06-24] MEDS ORDERED: *HR* HYDROmorphone (PF) 1 MG/ML SYRINGE IVP PRN (10:55)
[2020-06-24] MEDS ORDERED: Naloxone 0.4 MG/ML INJ IVP PRN (10:55)
[2020-06-24] MEDS ORDERED: Nitroglycerin 0.4 MG TAB.SUBL SL PRN (10:55)
[2020-06-24] MEDS ORDERED: diazePAM 10 MG TABLET PO PRN (10:55)
[2020-06-24] MEDS: *HR* OxyCODONE/APAP 10/325 TABLET PO PRN ×2 (14:45→22:09)
[2020-06-24] MEDS ORDERED: QUEtiapine Fumarate 100 MG TABLET PO SCH (21:00)
[2020-06-24] MEDS ORDERED: OLANZapine 10 MG TAB.RAPDIS PO SCH (21:00)
[2020-06-24] MEDS ORDERED: Latanoprost 2.5 ML BOTTLE BOTH EYES SCH (21:00)
[2020-06-25] MEDS: Piperacillin/Tazobactam 3.375 GM in 0.9 % Sodium Chloride Mini Bag 100 ML IVPB SCH (03:47)
[2020-06-25] MEDS: *HR* Heparin 5,000 UNIT/ML VIAL SQ SCH (06:09)
[2020-06-25 06:40] LABS: Basophils % 0.3 %; Eosinophils % 0.4 %; Hematocrit 37.2 % (37.5-50.1); Hemoglobin 12.6 g/dL (12.9-16.9); Immature Granulocytes % 0.8 % (0-4); Lymphocytes # 1.6 K/mcL (0.6-4.6); Lymphocytes % 22.1 %; Mean Corpuscular HGB Conc 33.9 g/dL (31.6-35.5); Mean Corpuscular Hemoglobin 34.2 pg (28.0-33.3); Mean Corpuscular Volume 101.1 fL (83.0-100.0); Monocytes # 1.2 K/mcL (0.0-1.3); Monocytes % 15.7 %; Neutrophils # 4.4 K/mcL (1.6-8.9); Platelet Count 243 K/mcL (140-400); Red Blood Count 3.68 M/mcL (4.19-5.50); Red Cell Distribution Width 11.9 % (11.5-14.5); Segmented Neutrophils % 60.7 %; White Blood Count 7.3 K/mcL (4.3-11.1)
[2020-06-25 06:58] LABS: BUN/Creatinine Ratio 10 (6-26); Blood Urea Nitrogen 12 mg/dL (8-23); Carbon Dioxide 28 mEq/L (23-29); Chloride 101 mEq/L (98-107); Glucose 151 mg/dL (70-105); Osmolality,Calculated 291 (280-300); Potassium 3.2 mEq/L (3.5-5.1); Sodium 139 mEq/L (136-145); eGFR For African Americans > 60 (> 60); eGFR For Non-African Americans > 60 (> 60)
[2020-06-25 07:32] VITALS: BP 139/78
[2020-06-25] MEDS: *HR* OxyCODONE/APAP 10/325 TABLET PO PRN (08:27)
[2020-06-25] MEDS ORDERED: (Vortioxetine Hydrobromide [Trintellix] 10 MG Tablet) PO SCH (09:00)
[2020-06-25] MEDS ORDERED: Folic Acid 1 MG TABLET PO SCH (09:00)
[2020-06-25] MEDS ORDERED: Cyanocobalamin (B-12) 1,000 MCG TABLET PO SCH (09:00)
== END 2020-06-25 09:10 | disposition home or self-care (01) ==
LOC: EMEROOARM 11:37 → 3ANU 11:37 → SUATTDRO 16:52 → 3ANU 20:02
PROVIDERS: ADMIT Internal Medicine; ATTEND General Practice